=== PATIENT | female | born 1975 | race Caucasian/White ===

== ENCOUNTER 2025-02-19 10:34 | Inpatient (IN) | payer OTHER, SELFPAY ==
[2025-02-19] VITALS (8 sets, daily range): BP systolic 100–113; BP diastolic 51–74; PULSE 88–113; RESP 14–20; TEMP 36.3–36.8; O2SAT 98–100; BMI 30.2
--- NOTE | ~2025-02-19 | CT_ITS ---
CLINICAL INDICATION: Epigastric pain COMPARISON: None. TECHNIQUE: Multiple contiguous axial images of the abdomen and pelvis were performed without the admi nistration of intravenous contrast The dose-length product (DLP) was 484.39 mGy-cm. Automated exposure control and iterative reconstruction technique were employed. FINDINGS/OBSERVATIONS: Visualized lower thorax: The bilateral lung bases are clear. The heart is of normal size, without pericardial effusion. Small hiatal hernia is present. Liver: The liver demonstrates homogeneous attenuation and is not enlarged. Gallbladder and biliary system: The gallbladder is only minimally distended, and otherwise unremarkable. Pancreas: Limited evaluation of the pancreas secondary to the lack of intravenous contrast. Spleen: The spleen demonstrates homogeneous attenuation and is not enlarged. Kidneys: The bilateral kidneys are unremarkable, without hydronephrosis or renal calculi. Adrenal glands: Unremarkable. Gastrointestinal tract: A 15 mm defect is identified within the supraumbilical fascia through which multiple loops of small b owel project. An additional defect is identified cranial to this which contains a small segment of the wall of the transverse colon and adjacent mesentery. Proximal dilatation and distal decompression is noted. Air is present within the distal bowel, without suspicion of strangulation. Appendix: The air-filled appendix is of normal caliber (axial series, images 103 - 113) Vasculature: A swirling 11 mm tubular structure is identified within the mesentery just cranial to th e fascial defect, possibly vascular in origin for which contrast enhanced imaging is needed. This does not appear to represent small bowel, however, the dilatation of this structure within the m esentery, if it represents superior mesenteric vein, the distal bowel wall would appear much thicker than it currently does, consistent with venous congestion. Surgical consultation is recommended, for further evaluation. Vascular coils are identified within the upper abdomen, within the distribution of branches of the le ft gastric artery. The inferior vena cava is decompressed, for which hypovolemia is suspected. Lymph nodes: No pathologically enlarged or morphologically suspicious lymph nodes within the retroperitoneum or at the root of the mesentery. Scattered nonpathologically enlarged lymph nodes are present, a nonspecif ic finding. Pelvic structures: The bladder is decompressed, limiting its evaluation. The uterus is anteverted and anteflexed, and otherwise unremarkable. Body wall and musculoskeletal: No significant degenerative disease within the lower thoracic or lumbosacral spine. IMPRESSION: Supraumbilical small bowel containing hernia with indeterminate affect on the mesentery and possible compression and distention of a branch of the superior mesenteric vein, as detailed above. Additional findings within the anterior wall of the proximal transverse colon which extends into a ad ditional anterior abdominal wall hernia, for which a possible Cuenca's hernia is suspected. Severe hypovolemia is also noted, as detailed above Thank you for the opportunity to assist in the care of your patient. For questions or concerns regarding this interpretation, please reach out to me directly at . Reviewed, dictated and finalized at location A. IMPRESSION: Supraumbilical small bowel containing hernia with indeterminate affect on the m esentery and possible compression and distention of a branch of the superior me senteric vein, as detailed above. Additional findings within the anterior wall of the proximal transverse colon w hich extends into a additional anterior abdominal wall hernia, for which a poss ible Cuenca's hernia is suspected. Severe hypovolemia is also noted, as detailed above Thank you for the opportunity to assist in the care of your patient. For questions or concerns regarding this interpretation, please reach out to me directly at [phone].
--- NOTE | ~2025-02-19 | XR_ITS ---
CHEST RADIOGRAPH, PA AND LATERAL CLINICAL HISTORY: chest pain, PT C/O STOMACH PAIN X 3MONTHS, DIZZINESS . COMPARISON: None available TECHNIQUE: PA and lateral views of the chest. FINDINGS The cardiomediastinal silhouette is unremarkable. The lungs are clear. IMPRESSION: No focal infiltrate or effusion. Reviewed, dictated and finalized at location A.
--- NOTE | 2025-02-19 10:38 | ECG_ITS ---
Test Date: 2025-02-19 13:23:40 Measurements Intervals [place] Rate: 93 P: 51 VA: 141 QRS: 19 QRSD: 98 T: 54 QT: 337 QTc: 421 Interpretive Statements SINUS RHYTHM No previous ECG available for comparison Electronically Signed On 02-19-2025 13:39:02 CDT by Courtney Joseph M.D.
[2025-02-19 10:56] LABS: Hematocrit 41.6 % (37.0-47.0); Hemoglobin 13.3 g/dL (12.0-15.0); Immature Granulocyte Percent A 0.6 % (0-0.5); Lymphocytes Absolute Auto 2.29 K/mm3 (0.9-3.2); Mean Corpuscular HGB Conc 32.0 g/dl (32-36); Mean Corpuscular Hemoglobin 26.2 pg (26-34); Mean Corpuscular Volume 82.1 fl (80-100); Nucleated Red Blood Cells Absolute Auto 0.000 K/mm3 (0.0-0.012); Nucleated Red Blood Cells Perc 0.0 % (0.0-0.2); Platelet Count Result 393 k/mm3 (150-375); Red Blood Count 5.07 M/mm3 (4.2-5.4); White Blood Count 8.9 K/mm3 (4.5-10.0)
[2025-02-19 11:05] LABS: Alanine Aminotransferase 23 U/L (6-35); Albumin Level 4.5 g/dL (3.5-5.1); Alkaline Phosphatase 76 U/L (38-126); Anion Gap 18 mmol/L (4-12); Aspartate Amino Transferase 24 U/L (14-36); Bilirubin,Total 0.4 mg/dL (0.2-1.3); Blood Urea Nitrogen 59 mg/dL (7-17); Calcium 9.0 mg/dL (8.4-10.2); Carbon Dioxide 15 mmol/L (22-30); Chloride 107 mmol/L (98-107); Estimated CRCL calculation 14 ml/min; Estimated Glomerular Filt Rate 10; Glucose 119 mg/dL (65-110); Lipase 823 U/L (23-300); Potassium 4.9 mmol/L (3.4-5.0); Sodium 140 mmol/L (137-145); Total Protein 8.1 g/dL (6.3-8.2)
[2025-02-19 11:07] LABS: INR 1.0; Prothrombin Time 13.2 Seconds (11.1-14.7)
[2025-02-19 11:08] LABS: Partial Thromboplastin Time 25.2 Seconds (22.3-36.8)
[2025-02-19 11:17] LABS: Troponin I < 0.012 ng/mL (0.000-0.034)
[2025-02-19] MEDS: ASPIRIN 81 MG CHEWABLE TABLET 324 MG PO (12:38)
--- NOTE | 2025-02-19 13:12 | ED_ITS ---
HPI - Chest Pain General Chief Complaint: Chest Pain Stated Complaint: chest pain, abd pain, N/V, dizziness Time Seen by Provider: 02/19/25 12:24 History of Present Illness HPI narrative: Pt presents with epigastric abdominal pain and some right sided CP. The CP is intermittent and brief in nature. Pt says the epigastric pain has been present for a month getting worse and she has been vomiting a lot the last few days and is not able to keep anything down. Pt denies diarrhea or fever or SOB. Related Data Home Medications ?Medication ?Instructions ?Recorded ?Confirmed ?Last Taken ?Type bupropion HCl 150 mg 24 hr tablet, 150 mg PO DAILY 02/19/25 02/19/25 Unknown History extended release dulaglutide 0.75 mg/0.5 mL 1.5 mg subcut WEEKLY 02/19/25 02/19/25 02/16/25 History subcutaneous pen injector (Trulicity) dulaglutide 1.5 mg/0.5 mL 1.5 mg subcut WEEKLY 02/19/25 02/19/25 02/16/25 History subcutaneous pen injector (Trulicity) hydroxyzine HCl 25 mg tablet 25 mg PO DAILY 02/19/25 02/19/25 Unknown History lisinopril 20 mg tablet 20 mg PO HS 02/19/25 02/19/25 Unknown History metformin 1,000 mg tablet 1,000 mg PO BID 02/19/25 02/19/25 Unknown History omeprazole magnesium 20 mg 40 mg PO DAILY 02/19/25 02/19/25 02/19/25 History tablet,delayed release (Prilosec OTC) rosuvastatin 5 mg tablet 5 mg PO HS 02/19/25 02/19/25 Unknown History sertraline 50 mg tablet 50 mg PO DAILY 02/19/25 02/19/25 Unknown History terbinafine HCl 250 mg tablet 250 mg PO HS 02/19/25 02/19/25 Unknown History Allergies Allergy/AdvReac Type Severity Reaction Status Date / Time No Known Allergies Allergy Verified 02/19/25 15:45 Review of Systems 2 Review of Systems: All systems reviewed & are unremarkable except as noted in HPI and below PMFSH Family History Family History (Updated 02/19/25 @ 15:34 by Kari Marte RN) Father Hypertension Diabetes mellitus Mother Hypertension Diabetes mellitus Social History Social History Smoking status: Never smoker Alcohol intake: never Substance use: never Do You Feel Safe in your Home?: Yes Lack of Transportation: No Lack of Food: Never True Current Housing: I Have Housing Concerned About Future Housing: Decline to Answer Difficulty Paying Gas/Electric Bills: Decline to Answer Difficulty Paying for Meds: Decline to Answer Currently Unemployed: Decline to Answer Education: Associate Degree Difficulty w/ Childcare or Family Care: Decline to Answer Spiritual care concerns: No Exam 2 Const: General: healthy appearing and no acute distress Nutritional Appearance: well nourished Orientation/consciousness: patient oriented x3 Limitations: no limitations Resp: Effort & Inspection: normal respiratory effort Auscultation: clear to auscultation bilaterally Cardio: Rate: regular rate Rhythm: regular rhythm GI: GI Palp: Yes Soft to palpation and Yes Tenderness to palpation present (GI) (epigastrum) Auscultation: normal bowel sounds Back/Spine/Pelvis: Back: no CVA tenderness Skin: General skin exam: normal color Rashes: no rashes Wounds: no wounds Neuro: General: patient oriented x3, moves all extremities and no focal motor deficits Speech: normal speech Extrem: General: normal to inspection and no clubbing, cyanosis or edema Psych: Mental Status: mental status grossly normal Affect: normal affect Attitude: cooperative Course Vital Signs Vital signs: Vital Signs Temperature 97.9 F 02/19/25 10:44 Pulse Rate 113 H 02/19/25 10:44 Respiratory Rate 16 02/19/25 10:44 Blood Pressure 113/65 02/19/25 10:44 Pulse Oximetry 99 02/19/25 10:44 Oxygen Delivery Room Air 02/19/25 10:44 Temperature 97.3 F L 02/19/25 15:00 Pulse Rate 88 02/19/25 15:00 Respiratory Rate 14 02/19/25 15:00 Blood Pressure 112/59 L 02/19/25 15:00 Pulse Oximetry 100 02/19/25 15:00 Oxygen Delivery Room Air 02/19/25 12:12 MDM - Chest Pain MDM Narrative Medical decision making narrative: Pt presents with epigastric pain for a month and vaomiting for a few days. Pt also has some right sided PC. will check ekg and labs to rule out cardiac and also pancreatitis or cholecystitis. Will give some fluids and zofran and something for pain and will get CT abd/pelvis. Pt in renal failure and lipase is 823. trop and LFT's normal. Pt has pancreatitis and renal failure could be dehydration. Discussed with Kim and agrees to admit. will track renal function after rehydrating. Lab Data 02/19/25 10:47 02/19/25 10:47 Labs: Lab Results 02/19/25 02/19/25 Range/Units 10:47 13:17 WBC 8.9 (4.5-10.0) K/mm3 RBC 5.07 (4.2-5.4) M/mm3 Hgb 13.3 (12.0-15.0) g/dL Hct 41.6 (37.0-47.0) % MCV 82.1 (80-100) fl MCH 26.2 (26-34) pg MCHC 32.0 (32-36) g/dl RDW 13.9 (11.5-14.5) % Plt Count 393 H (150-375) k/mm3 MPV 9.8 (7.4-10.4) fl Immature Gran % (Auto) 0.6 H (0-0.5) % Neut % (Auto) 66.4 (45.5-73.1) % Lymph % (Auto) 25.6 (18.3-44.2) % Sargent % (Auto) 6.3 (2.6-8.5) % Eos % (Auto) 0.7 (0-4.4) % Baso % (Auto) 0.4 (0.2-1.2) % Lymph # (Auto) 2.29 (0.9-3.2) K/mm3 Sargent # (Auto) 0.6 (0.1-0.6) K/mm3 Eos # (Auto) 0.1 (0-0.3) K/mm3 Baso # (Auto) 0.0 (0.0-0.1) K/mm3 Abs Immat Gran (auto) 0.05 H (0.00-0.031) K/mm3 Absolute Neuts (auto) 5.9 (1.3-6.7) K/mm3 Absolute Nucleated RBC 0.000 (0.0-0.012) K/mm3 Nucleated RBC % 0.0 (0.0-0.2) % PT 13.2 (11.1-14.7) Seconds INR 1.0 APTT 25.2 (22.3-36.8) Seconds Sodium 140 (137-145) mmol/L Potassium 4.9 (3.4-5.0) mmol/L Chloride 107 (98-107) mmol/L Carbon Dioxide 15 L (22-30) mmol/L Anion Gap 18 H (4-12) mmol/L BUN 59 H (7-17) mg/dL Creatinine 4.75 H (0.7-1.0) mg/dL Estim Creat Clear Calc 14 ml/min Estimated GFR 10 L (59 - ) Glucose 119 H (65-110) mg/dL Calcium 9.0 (8.4-10.2) mg/dL Total Bilirubin 0.4 (0.2-1.3) mg/dL AST 24 (14-36) U/L ALT 23 (6-35) U/L Alkaline Phosphatase 76 (38-126) U/L Troponin I < 0.012 < 0.012 (0.000-0.034) ng/mL Total Protein 8.1 (6.3-8.2) g/dL Albumin 4.5 (3.5-5.1) g/dL Lipase 823 H (23-300) U/L Discharge Plan Discharge Clinical Impression: Pancreatitis, Acute dehydration, Acute renal failure (ARF) Patient Disposition: Still a Patient Condition: Serious
--- NOTE | 2025-02-19 13:19 | ECG_ITS ---
Test Date: 2025-02-19 10:42:15 Measurements Intervals [place] Rate: 106 P: 45 TN: 139 QRS: 10 QRSD: 93 T: 42 QT: 318 QTc: 423 Interpretive Statements SINUS TACHYCARDIA ABNORMAL RHYTHM ECG No previous ECG available for comparison Electronically Signed On 02-20-2025 07:15:59 CDT by Courtney Joseph M.D.
[2025-02-19] MEDS: LACTATED RINGERS 1,000 ML 125 ML IV CONT (13:38)
[2025-02-19] MEDS: HYDROmorphone HCL INJ (*CRX) 2 MG/ML VIAL 0.5 MG IV PUSH (13:39)
[2025-02-19] MEDS: ONDANSETRON INJ 4 MG/2 ML VIAL IV PUSH (13:39)
[2025-02-19 13:55] LABS: Troponin I < 0.012 ng/mL (0.000-0.034)
[2025-02-19] MEDS: SODIUM CHLORIDE 0.9% IV 1,000 ML 999 ML IV CONT (13:57)
--- NOTE | 2025-02-19 14:46 | P.HP_ITS ---
H&P: HPI History of Present Illness Date/Time: 02/19/25 14:46 Chief Complaint: Epigastric pain Narrative: 49-year-old female presents the hospital with epigastric pain right-sided chest pain. Patient states the epigastric pain has been going on for about a month however only last few days she has been vomiting and not able to eat or drink. Patient denies alcohol use. Patient denies fevers chills. Patient denies risk factors for HIV or AIDS. In the ED her lab work shows carbon dioxide 15, anion gap 18, BUN of 59, creatinine 4.75, estimated GFR 10, glucose of 119, troponins are negative lipase of 823. CT of the abdomen shows Supraumbilical small bowel containing hernia with indeterminate affect on the mesentery and possible compression and distention of a branch of the superior mesenteric vein, as detailed above. Additional findings within the anterior wall of the proximal transverse colon which extends into a additional anterior abdominal wall hernia, for which a possible Cuenca's hernia is suspected. Severe hypovolemia is also noted, as detailed above Review of Systems Review of Systems: 12 systems were reviewed and are negativ e except for as per HPI. [facility] Family History Family History (Updated 02/19/25 @ 15:34 by Kari Marte RN) Father Hypertension Diabetes mellitus Mother Hypertension Diabetes mellitus Social History Social History Smoking status: Never smoker Alcohol intake: never Substance use: never Do You Feel Safe in your Home?: Yes Lack of Transportation: No Lack of Food: Never True Current Housing: I Have Housing Concerned About Future Housing: Decline to Answer Difficulty Paying Gas/Electric Bills: Decline to Answer Difficulty Paying for Meds: Decline to Answer Currently Unemployed: Decline to Answer Education: Associate Degree Difficulty w/ Childcare or Family Care: Decline to Answer Spiritual care concerns: No Meds Home Medications and Allergies Home Medications ?Medication ?Instructions ?Recorded ?Confirmed ?Type bupropion HCl 150 mg 24 hr tablet, 150 mg PO DAILY 02/19/25 02/19/25 History extended release dulaglutide 0.75 mg/0.5 mL 1.5 mg subcut WEEKLY 02/19/25 02/19/25 History subcutaneous pen injector (Trulicity) dulaglutide 1.5 mg/0.5 mL 1.5 mg subcut WEEKLY 02/19/25 02/19/25 History subcutaneous pen injector (Trulicity) hydroxyzine HCl 25 mg tablet 25 mg PO DAILY 02/19/25 02/19/25 History lisinopril 20 mg tablet 20 mg PO HS 02/19/25 02/19/25 History metformin 1,000 mg tablet 1,000 mg PO BID 02/19/25 02/19/25 History omeprazole magnesium 20 mg 40 mg PO DAILY 02/19/25 02/19/25 History tablet,delayed release (Prilosec OTC) rosuvastatin 5 mg tablet 5 mg PO HS 02/19/25 02/19/25 History sertraline 50 mg tablet 50 mg PO DAILY 02/19/25 02/19/25 History terbinafine HCl 250 mg tablet 250 mg PO HS 02/19/25 02/19/25 History Allergies Allergy/AdvReac Type Severity Reaction Status Date / Time No Known Allergies Allergy Verified 02/19/25 15:45 Vital Signs Vital Signs - 24 hr 02/19/25 10:44 02/19/25 12:12 02/19/25 12:12 Temperature 97.9 F Pulse Rate 113 H 97 Respiratory Rate 16 20 Blood Pressure 113/65 113/74 Pulse Oximetry 99 98 99 Oxygen Delivery Room Air Room Air Room Air Exam Narrative: General: well appearing, appears stated age. HEENT: normocephalic, atraumatic. Mucous membranes moist. EOMI, PERRLA, bilateral sclera anicteric, no conjunctival injection. Neck supple without JVD, lymphadenopathy, or bruit. Respiratory: clear to ascultation bilaterally. No rales/rhonic/wheezes. Cardiovascular: Regular rate and rhythm, normal S1-S2 upon ascultation. No murmurs, rubs, or clicks. PMI is nondisplaced, capillary refill less than 3 second. Abdomen: Soft, round, no pulsatile masses, nondistended and nontender. No rebound, no guarding. No CVA tenderness, no hepatosplenomegaly. Bowel sounds present to all four quadrants. No high pitch or tinkling sounds, resonant to percussion. Extremities: No cyanosis, clubbing, or edema present. Pulses are palpable 2/2. Active ROM to all four extremities. Neuro: Alert and orientated x 4. PERRLA. Cranial nerves 2-12 intact without focal deficit. Skin: Warm, dry, and intact, without rash, erythema, or lesion. Psych: pleasant, cooperative, normal speech, normal affect, no hallucinations, no dysarthia H&P: Results Labs Labs: Short CBC 02/19/25 Range/Units 10:47 WBC 8.9 (4.5-10.0) K/mm3 Hgb 13.3 (12.0-15.0) g/dL Hct 41.6 (37.0-47.0) % Plt Count 393 H (150-375) k/mm3 BMP 02/19/25 10:47 Sodium 140 Potassium 4.9 Chloride 107 Carbon Dioxide 15 L BUN 59 H Creatinine 4.75 H Glucose 119 H Calcium 9.0 Cardiac Enzymes 02/19/25 02/19/25 Range/Units 10:47 13:17 Troponin I < 0.012 < 0.012 (0.000-0.034) ng/mL Liver Function 02/19/25 Range/Units 10:47 Total Bilirubin 0.4 (0.2-1.3) mg/dL AST 24 (14-36) U/L ALT 23 (6-35) U/L Alkaline Phosphatase 76 (38-126) U/L Albumin 4.5 (3.5-5.1) g/dL Assessment and Plan Assessment and plan (1) Pancreatitis: Code(s): K85.90 - Acute pancreatitis without necrosis or infection, unspecified Status: Acute Assessment and Plan: NPO Pain management LR bolus followed by 200 per hour Lipase in a.m. (2) Acute renal failure (ARF): Code(s): N17.9 - Acute kidney failure, unspecified Status: Acute Assessment and Plan: Nephrology consulted pending recommendations Aggressive fluid hydration (3) Acute dehydration: Code(s): E86.0 - Dehydration Status: Acute Assessment and Plan: Aggressive fluid hydration Quality VTE Prophylaxis VTE prophylaxis: mechanical ordered Hospitalist MIPS Advance Care Plan I have confirmed that the patient's Advanced Care Plan is present, code status is documented, or surrogate decision maker is listed in patient medical record.: Yes Medication Reconciliation I have utilized all available resources to obtain, update and review the patients current medications (includes all prescriptions, OTC, herbals, cannabis, and nutritional supplements).: Yes
--- NOTE | 2025-02-19 15:00 | PC.NURSE ---
This patient, Larissa Gómez, was admitted to [facility] Surg Room 330-01. Patient/family oriented to hospital policies and general routines including ID bracelet, bed and alarms, visiting hours, pain management, procedures, bathroom and other care routines, personal items, smoking policy, room service/diet, and visiting hours. Information on how to activate the Rapid Response Team has been discussed. Patient/Family are encouraged to report perceived risks to care and to ask questions if they do not understand what they are told or what they should do.
[2025-02-19] MEDS: LACTATED RINGERS 1,000 ML 999 ML IV CONT (16:17)
[2025-02-19 17:15] LABS: Troponin I < 0.012 ng/mL (0.000-0.034)
[2025-02-19] MEDS: LACTATED RINGERS 1,000 ML 200 ML IV CONT ×2 (17:57→22:47)
[2025-02-20] MEDS: ACETAMINOPHEN 325 MG TABLET 650 MG PO ×2 (03:11→10:46)
[2025-02-20] MEDS: LACTATED RINGERS 1,000 ML 200 ML IV CONT ×2 (04:14→08:26)
[2025-02-20 06:00] VITALS: BP 123/60; PULSE 84; RESP 20; TEMP 36.8; O2SAT 100
[2025-02-20] MEDS: DEXTROSE 50% 25 GM/50 ML SYRINGE IV PUSH (06:10)
[2025-02-20 06:20] LABS: Hematocrit 33.8 % (37.0-47.0); Hemoglobin 10.8 g/dL (12.0-15.0); Immature Granulocyte Percent A 0.5 % (0-0.5); Lymphocytes Absolute Auto 2.12 K/mm3 (0.9-3.2); Mean Corpuscular HGB Conc 32.0 g/dl (32-36); Mean Corpuscular Hemoglobin 26.9 pg (26-34); Mean Corpuscular Volume 84.1 fl (80-100); Nucleated Red Blood Cells Absolute Auto 0.000 K/mm3 (0.0-0.012); Nucleated Red Blood Cells Perc 0.0 % (0.0-0.2); Platelet Count Result 253 k/mm3 (150-375); Red Blood Count 4.02 M/mm3 (4.2-5.4); White Blood Count 6.4 K/mm3 (4.5-10.0)
[2025-02-20 06:43] LABS: Anion Gap 9 mmol/L (4-12); Blood Urea Nitrogen 48 mg/dL (7-17); Calcium 8.2 mg/dL (8.4-10.2); Carbon Dioxide 18 mmol/L (22-30); Chloride 110 mmol/L (98-107); Estimated CRCL calculation 21 ml/min; Estimated Glomerular Filt Rate 16; Glucose 72 mg/dL (65-110); Lipase 646 U/L (23-300); Potassium 5.0 mmol/L (3.4-5.0); Sodium 137 mmol/L (137-145)
[2025-02-20 08:00] VITALS: O2SAT 100
[2025-02-20] MEDS: SERTRALINE HCL 50 MG TABLET PO (08:14)
[2025-02-20] MEDS: PANTOPRAZOLE 40 MG TABLET PO (08:14)
[2025-02-20] MEDS: buPROPion HCL XL (24 HR) 150 MG TABCR PO (08:26)
--- NOTE | 2025-02-20 10:45 | P.CONNP_ITS ---
Assessment and Plan Assessment and plan (1) Acute kidney injury: Code(s): N17.9 - Acute kidney failure, unspecified Status: Acute Assessment and Plan: * presumably normal renal function prior to admission * improvement noted with IVF hydration * several issues playing a role: * prerenal factors * ongoing use of LUCIA-I and metformin prior to admission * pancreatitis * other(?) * CT of A/P with bilateral kidneys are unremarkable, without hydronephrosis or renal calculi. * check urine studies * continue to follow trend of labs and UOP (2) Pancreatitis: Code(s): K85.90 - Acute pancreatitis without necrosis or infection, unspecified Status: Acute Assessment and Plan: * suggested by elevated lipase on admission * however, no CT evidence (although lack of IV contrast limits evaluation) * follow clinical exam and trend of lipase * advance diet as tolerated (3) Urinary tract infection: Code(s): N39.0 - Urinary tract infection, site not specified Status: Acute Assessment and Plan: * admission UA suggestive * however, no urine collection done * on empiric antibiotics (4) Incisional hernia: Code(s): K43.2 - Incisional hernia without obstruction or gangrene Status: Acute Assessment and Plan: * Surgery consult pending * continue supportive therapy (5) Hypertension: Code(s): I10 - Essential (primary) hypertension Status: Chronic Assessment and Plan: * reasonable control at this time * LUCIA-I on hold due to #1 * follow trend of hemodynamics (6) Diabetes mellitus: Code(s): E11.9 - Type 2 diabetes mellitus without complications Status: Chronic Assessment and Plan: * follow accu-cheks * glycemic control per hospitalist I will continue to follow the patient with you while she remains hospitalized and make further recommendations as deemed necessary. Thank you for allowing me to participate in the care of this patient. L History of Present Illness Reason for Consult Consult date: 02/20/25 Reason for consult: acute renal failure Chief Complaint Chief complaint: Pancreatitis History of Present Illness Narrative: The patient is a 49-year-old female with a past medical history as outlined below who presents the [facility] ER with complaints of abdominal pain. Patient states the abdminalpain has been going on for about a month, however, in the last few days she has been having vomiting and has not able to eat or drink. The pain seems to come and go in general and is localized to the epigastric area with some radiation to her right chest. She denies any symptoms of fevers, chills, nausea, diarrhea, shortness of breath, dizziness, lightheadedness, or palpitations. Due to the worsening pain and associated GI symptoms, she presented to the ER for further assessment. Evaluation in the ER demonstrated the patient to be hemodynamically stable and afebrile. Routine lab work showed a carbon dioxide 15, BUN of 59, creatinine 4.75, glucose of 119, negative troponins and a elevated lipase of 823. Subsequent CT of the abdomen demonstrated a supraumbilical small bowel containing hernia with indeterminate affect on the mesentery and possible compression and distention of a branch of the superior mesenteric vein with additional findings within the anterior wall of the proximal transverse colon which extends into a additional anterior abdominal wall hernia, for which a possible Cuenca's hernia is suspected. Her UA was somewhat suggestive of a UTI as well (but a urine culture was not done). She was initiated on IVFs with subsequent Surgery consultation and admitted to the hospital for further evaluation and therapy. Since her admission, her renal function has improved with supportive therapy and Surgery consultation is pending. Renal consultation was requested due to her acute kidney injury/acute renal failure. Unfortunately, I have no prior labs to compare to but according to the patient, she has never been told that she had any issues or problems with regard to her kidneys or any evidence of chronic renal insufficiency. Although she does have risk have risk factors for kidney disease in the form of hypertension and diabetes, these medical conditions appear to be under control control with her medication regimen. As already mentioned above, since her admission, and with just IV fluid hydration, her renal function has already improved significantly. Currently, at the time my evaluation, she appears to be in no acute distress. Review of Systems 2 Review of Systems: As per HPI. [facility] Family History Family History Father Hypertension Diabetes mellitus Mother Hypertension Diabetes mellitus Social History Social History (Updated 03/11/25 @ 08:42 by Gabi Squires MA) Smoking status: Never smoker Alcohol intake: never Substance use: never Do You Feel Safe in your Home?: Yes Lack of Transportation: No Lack of Food: Never True Current Housing: I Have Housing Concerned About Future Housing: No Difficulty Paying Gas/Electric Bills: No Difficulty Paying for Meds: No Currently Unemployed: No Education: High School Diploma/GED Difficulty w/ Childcare or Family Care: No Spiritual care concerns: No Meds Home Medications and Allergies Home Medications ?Medication ?Instructions ?Recorded ?Confirmed ?Type bupropion HCl 150 mg 24 hr tablet, 150 mg PO DAILY 02/19/25 03/11/25 History extended release hydroxyzine HCl 25 mg tablet 25 mg PO DAILY 02/19/25 03/11/25 History metformin 1,000 mg tablet 1,000 mg PO BID 02/19/25 03/11/25 History omeprazole magnesium 20 mg 40 mg PO DAILY 02/19/25 03/11/25 History tablet,delayed release (Prilosec OTC) rosuvastatin 5 mg tablet 5 mg PO HS 02/19/25 03/11/25 History sertraline 50 mg tablet 50 mg PO DAILY 02/19/25 03/11/25 History terbinafine HCl 250 mg tablet 250 mg PO HS 02/19/25 03/11/25 History atenolol 25 mg tablet 25 mg PO DAILY 03/11/25 03/11/25 History Allergies Allergy/AdvReac Type Severity Reaction Status Date / Time No Known Allergies Allergy Verified 03/11/25 08:41 Vital Signs Vital Signs Temp Pulse Resp BP Pulse Ox O2 Del Method 02/20/25 08:00 100 Room Air 02/20/25 06:00 98.3 F 84 20 123/60 100 02/19/25 21:52 98.2 F 88 16 111/51 L 98 02/19/25 20:00 88 16 98 Room Air Exam 2 Narrative: GENERAL APPEARANCE: well developed well nourished female in no acute distress HEENT: normocephalic, atraumatic, normal conjunctiva and sclera, nares patient NECK: no lymphadenopathy, thyromegaly, or JVD MOUTH: normal lips, teeth, and gums CARDIOVASCULAR: RRR, normal S1 and S2, no rub RESPIRATORY: clear to auscultation bilaterally ABDOMEN: soft, nontender, nondistended, positive bowel sounds present EXTREMITIES: no evidence of cyanosis, clubbing, or edema NEUROLOGICAL: alert and oriented x 3; CN II - XII intact bilaterally; no focal deficits noted Results Lab Results 02/23/25 07:23 02/23/25 07:23 Lab results: Most recent lab results Calcium 8.2 mg/dL (8.4-10.2) L 02/20/25 05:53 Urine Creatinine 62.3 mg/dL 02/20/25 14:06
--- NOTE | 2025-02-20 11:47 | PM.IMPN ---
Progress Note: A&P Assessment and Plan (1) Pancreatitis: Code(s): K85.90 - Acute pancreatitis without necrosis or infection, unspecified Status: Acute (2) Acute renal failure (ARF): Code(s): N17.9 - Acute kidney failure, unspecified Status: Acute (3) Acute dehydration: Code(s): E86.0 - Dehydration Status: Acute Plan 49-year-old female presents the hospital with epigastric pain right-sided chest pain. Patient states the epigastric pain has been going on for about a month however only last few days she has been vomiting and not able to eat or drink. Patient denies alcohol use. Patient denies fevers chills. Patient denies risk factors for HIV or AIDS. In the ED her lab work shows carbon dioxide 15, anion gap 18, BUN of 59, creatinine 4.75, estimated GFR 10, glucose of 119, troponins are negative lipase of 823. CT of the abdomen shows Supraumbilical small bowel containing hernia with indeterminate affect on the mesentery and possible compression and distention of a branch of the superior mesenteric vein, as detailed above. Additional findings within the anterior wall of the proximal transverse colon which extends into a additional anterior abdominal wall hernia, for which a possible Cuenca's hernia is suspected.. 15 mm defect is identified within the supra umbilical fossa through with multiple loops of small bowel project. Additional defects identified cranial to this which contains a small segment of the wall of transverse colon and adjacent mesentery. Proximal dilatation and distal decompression is noted. Air is present within the distal bowel without suspicion of strangulation. Will consult General surgery with regard to these findings possible obstructed hernia. Check lactate History of GI bleed needing vascular coiling in the past per CT scan noted within the distribution of of branches of left gastric artery. Dehydration IV fluid DRAGAN unknown baseline creatinine admission creatinine of 4.7. No prior labs are available to review. Nephrology has been consulted. No hydronephrosis on CT Trend lipase. CT evaluation of pancreas was limited secondary to lack of IV contrast. Type 2 diabetes on Trulicity and metformin at home which are on hold. Continue to monitor Accu-Cheks. SSI for trending up. Currently low. Will start dextrose IV since NPO. Hypertension lisinopril on hold Anxiety depression on bupropion and sertraline Hyperlipidemia on rosuvastatin. Check CK level. DVT prophylaxis heparin subQ Code status full code Subjective Date/time seen: 02/20/25 11:47 Interval history: Abdominal pain is slightly better. No nausea vomiting. Review of Systems Review of Systems: All systems reviewed & are unremarkable except as noted in HPI and below Exam Narrative: General: well appearing, appears stated age. Not in acute distress HEENT: normocephalic, atraumatic. Mucous membranes moist. EOMI, PERRLA Respiratory: clear to auscultation bilaterally. No rales/rhonic/wheezes. Cardiovascular: Regular rate and rhythm, normal S1-S2 upon ascultation. No murmurs, rubs, or clicks. Abdomen: Soft, round, right epigastric mass which is not tender, surgical scar noted supraumbilical No rebound, no guarding. Extremities: No cyanosis, clubbing, or edema present. Pulses are palpable 2/2. Active ROM to all four extremities. Neuro: Alert and orientated x 4. PERRLA. Cranial nerves 2-12 intact without focal deficit. Skin: Warm, dry, and intact, without rash, erythema, or lesion. Psych: pleasant, cooperative, normal speech, normal affect Objective Data Vital Signs Vital Signs: Vital Signs - 24 hr 02/19/25 12:12 02/19/25 12:12 02/19/25 12:30 Temperature Pulse Rate 97 97 Respiratory Rate 20 16 Blood Pressure 113/74 106/72 Pulse Oximetry 98 99 98 Oxygen Delivery Room Air Room Air 02/19/25 13:30 02/19/25 14:40 02/19/25 15:00 Temperature 97.3 F L Pulse Rate 97 96 88 Respiratory Rate 16 16 14 Blood Pressure 100/65 102/65 112/59 L Pulse Oximetry 98 99 100 Oxygen Delivery 02/19/25 20:00 02/19/25 21:52 02/20/25 06:00 Temperature 98.2 F 98.3 F Pulse Rate 88 88 84 Respiratory Rate 16 16 20 Blood Pressure 111/51 L 123/60 Pulse Oximetry 98 98 100 Oxygen Delivery Room Air 02/20/25 08:00 Temperature Pulse Rate Respiratory Rate Blood Pressure Pulse Oximetry 100 Oxygen Delivery Room Air Intake/Output Intake/Output: Intake & Output 02/17/25 02/18/25 02/19/25 02/20/25 23:59 23:59 23:59 23:59 Intake Total 1672.5 1840 Balance 1672.5 1840 Meds/Results Medications: Active Medications Generic Name Dose Route Start Last Admin Trade Name Freq PRN Reason Stop Dose Admin Acetaminophen 650 mg 02/20/25 02:29 02/20/25 10:46 Acetaminophen 325 Mg Tablet PO 650 mg Q6H PRN Administration Mild Pain (1-3) or Fever Bupropion HCl 150 mg 02/20/25 09:00 02/20/25 08:26 Bupropion Hcl Xl (24 Hr) 150 Mg Tabcr PO 150 mg DAILY MOOSE Administration Dextrose 12.5 gm 02/19/25 22:23 02/20/25 06:10 Dextrose 50% 25 Gm/50 Ml Syringe IV PUSH 12.5 gm PRN PRN Administration Hypoglycemia Protocol Glucagon 1 mg 02/19/25 22:23 Glucagon For Inj 1 Mg Vial IM PRN PRN Hypoglycemia Protocol Glucose 15 gm 02/19/25 22:23 Glucose Oral Gel 15 Gm Of Glucse In 37.5 Gm Tube PO PRN PRN Hypoglycemia Protocol Hydromorphone HCl 0.5 mg 02/19/25 13:22 Hydromorphone Hcl Inj (*Crx) 2 Mg/Ml Vial IV PUSH Q4H PRN Pain Rated 7-10 Hydroxyzine HCl 25 mg 02/20/25 09:00 02/20/25 08:14 Hydroxyzine Hcl 25 Mg Tablet PO 25 mg DAILY MOOSE Administration Lactated Ringer's 1,000 mls @ 200 mls/hr 02/19/25 13:25 02/20/25 08:26 Lr - Lactated Ringers Iv IV CONT 200 mls/hr .Q5H MOOSE Administration Dextrose 1,000 mls @ 100 mls/hr 02/19/25 22:23 Dextrose 5% 1,000 Ml IVPB PRN PRN Hypoglycemia Protocol Insulin Aspart 2 - 5 units 02/20/25 00:00 02/20/25 06:17 Insulin Aspart (*Bkc) 100 Units/Ml SUB-Q Not Given Q6HR MOOSE Protocol Ondansetron HCl 4 mg 02/19/25 13:22 Ondansetron Inj 4 Mg/2 Ml Vial IV PUSH Q4H PRN Nausea Pantoprazole Sodium 40 mg 02/20/25 09:00 02/20/25 08:14 Pantoprazole 40 Mg Tablet PO 40 mg QAM MOOSE Administration Rosuvastatin Calcium 5 mg 02/20/25 21:00 Rosuvastatin 5 Mg Tablet PO HS MOOSE Sertraline HCl 50 mg 02/20/25 09:00 02/20/25 08:14 Sertraline Hcl 50 Mg Tablet PO 50 mg DAILY MOOSE Administration Terbinafine HCl 250 mg 02/20/25 21:00 Terbinafine Hcl 250 Mg Tablet PO HS [facility] Radiology Results: ITS Impressions Chest X-Ray 02/19/25 12:12 IMPRESSION: No focal infiltrate or effusion. Abdomen/Pelvis CT 02/19/25 14:09 IMPRESSION: Supraumbilical small bowel containing hernia with indeterminate affect on the mesentery and possible compression and distention of a branch of the superior mesenteric vein, as detailed above. Additional findings within the anterior wall of the proximal transverse colon which extends into a additional anterior abdominal wall hernia, for which a possible Cuenca's hernia is suspected. Severe hypovolemia is also noted, as detailed above Thank you for the opportunity to assist in the care of your patient. For questions or concerns regarding this interpretation, please reach out to me directly at [phone]. Labs Labs: Laboratory Results - last 24 hr 02/19/25 02/19/25 02/20/25 13:17 16:42 00:19 WBC RBC Hgb Hct MCV MCH MCHC RDW Plt Count MPV Immature Gran % (Auto) Neut % (Auto) Lymph % (Auto) [place] % (Auto) Eos % (Auto) Baso % (Auto) Lymph # (Auto) [place] # (Auto) Eos # (Auto) Baso # (Auto) Abs Immat Gran (auto) Absolute Neuts (auto) Absolute Nucleated RBC Nucleated RBC % Sodium Potassium Chloride Carbon Dioxide Anion Gap BUN Creatinine Estim Creat Clear Calc Estimated GFR Glucose POC Capillary Glucose 69 Calcium Troponin I < 0.012 < 0.012 Lipase 02/20/25 02/20/25 02/20/25 05:53 06:05 06:55 WBC 6.4 RBC 4.02 L Hgb 10.8 L Hct 33.8 L MCV 84.1 MCH 26.9 MCHC 32.0 RDW 13.5 Plt Count 253 MPV 9.7 Immature Gran % (Auto) 0.5 Neut % (Auto) 58.2 Lymph % (Auto) 33.0 [place] % (Auto) 6.9 Eos % (Auto) 0.8 Baso % (Auto) 0.6 Lymph # (Auto) 2.12 [place] # (Auto) 0.4 Eos # (Auto) 0.1 Baso # (Auto) 0.0 Abs Immat Gran (auto) 0.03 Absolute Neuts (auto) 3.7 Absolute Nucleated RBC 0.000 Nucleated RBC % 0.0 Sodium 137 Potassium 5.0 Chloride 110 H Carbon Dioxide 18 L Anion Gap 9 BUN 48 H D Creatinine 3.08 H Estim Creat Clear Calc 21 Estimated GFR 16 L Glucose 72 POC Capillary Glucose 60 L 97 Calcium 8.2 L Troponin I Lipase 646 H
--- NOTE | 2025-02-20 11:47 | PC.NURSE ---
Dr Garcai notified of glucose 71 and LR at 200 ml/hr infusing.
[2025-02-20] MEDS: DEXTROSE 5%/0.9% SOD CHL 1,000 ML 100 ML IV CONT (12:20)
[2025-02-20 13:08] LABS: Add Urine Microscopic? YES; Appearance Urine Clear (Clear); Glucose Urine UA Negative (Negative); Leukocyte Esterase Ur 2+ LEU/UL (Negative); Nitrate Urine Negative (Negative); Specific Grav Ur 1.010 (1.001-1.035)
--- NOTE | 2025-02-20 13:14 | P.CONGS_ITS ---
Assessment and Plan Assessment and plan (1) Abnormal CT of the abdomen: Code(s): R93.5 - Abnormal findings on diagnostic imaging of other abdominal regions, including retroperitoneum Status: Acute Assessment and Plan: Patient presented with 1 month of epigastric pain that has increased in severity and is worsened with eating. She has since developed nausea and vomiting after meals. She has had multiple open abdominal surgeries 10+ years ago. Upon admission to the ED, abdominal CT demonstrated supraumbilical small bowel containing hernia with indeterminate effect on the mesentery and possible compression and distension of a branch of the superior mesenteric vein. Additionally, the anterior wall of the proximal transverse colon extends into an additional anterior abdominal wall hernia. Possible Cuenca's hernia suspected. * Continue IV pain and nausea medication. * No immediate surgical intervention necessary at this time. Would like to see pancreatitis resolved before proceeding with surgery. * We will continue to follow with serial abdominal exams. (2) Acute renal failure (ARF): Code(s): N17.9 - Acute kidney failure, unspecified Status: Acute Assessment and Plan: Severe hypovolemia noted. BUN/Cr increased. Nephrology on board. (3) Pancreatitis: Code(s): K85.90 - Acute pancreatitis without necrosis or infection, unspecified Status: Acute Assessment and Plan: Continue with IV pain medication and IV fluids per hospitalist recs. Monitor lipase levels. Plan Discussed patient's case and plan of care with Dr. Mckenzie. History of Present Illness Consult details Consult date: 02/20/25 Reason for consult: other (Abnormal CT findings) Requesting physician: Reji Bahena MD Narrative: Patient is a 49-year-old female we have been asked to see in surgical consultation for evaluation of abnormal CT findings. Patient 1st noted epigastric pain about 1 month ago. She states that this was also associated with some right-sided intermittent chest pain. Patient states that epigastric pain is exacerbated with eating and within the past 2 weeks she has developed nausea and vomiting after meals. Last episode of emesis was yesterday morning. Over the last few days pain has continued to increase in severity and patient eventually presented to the ED yesterday afternoon. Patient admits to an epigastric bulge that she sometimes notes to increase in size. She has not eaten since the night of 02/18. Denies hematemesis or hematochezia. Patient recalls having various surgeries on her abdomen. She notes that 10+ years ago she had a surgery at [place] for bleeding gastric ulcers. She notes at this time that she also had a bleeding artery and was sent to [place] for treatment. Patient is unable to recall the exact surgeries that she had performed, but she has a large midline scar as well as several other 1-2 inch incisional scars laterally on her abdomen. Patient also notes having a piece of skin removed from her abdomen when she was a baby, but is unsure what the exact surgery was. Upon admission to the ED, patient's lipase is 646. She denies ever being diagnosed with pancreatitis in the past. Elevated BUN/Cr, nephrology consulted. CT demonstrated 15 mm defect within the supraumbilical fascial there which multiple loops of small bowel project. Additional defect cranial to this which contains a small segment of the wall of the transverse colon and adjacent mesentery, possible Cuenca's hernia. Proximal dilation and distal decompression noted. Air present within the distal bowel without suspicion of strangulation. A swirling 11 mm tubular structure identified within the mesentery just cranial to the fascial defect, possibly vascular in origin for which contrast enhanced imaging would be needed. [facility] Family History Family History (Updated 02/19/25 @ 15:34 by Kari Marte RN) Father Hypertension Diabetes mellitus Mother Hypertension Diabetes mellitus Social History Social History Smoking status: Never smoker Alcohol intake: never Substance use: never Do You Feel Safe in your Home?: Yes Lack of Transportation: No Lack of Food: Never True Current Housing: I Have Housing Concerned About Future Housing: Decline to Answer Difficulty Paying Gas/Electric Bills: Decline to Answer Difficulty Paying for Meds: Decline to Answer Currently Unemployed: Decline to Answer Education: Associate Degree Difficulty w/ Childcare or Family Care: Decline to Answer Spiritual care concerns: No Meds Home Medications and Allergies Home Medications ?Medication ?Instructions ?Recorded ?Confirmed ?Type bupropion HCl 150 mg 24 hr tablet, 150 mg PO DAILY 02/19/25 02/19/25 History extended release dulaglutide 0.75 mg/0.5 mL 1.5 mg subcut WEEKLY 02/19/25 02/19/25 History subcutaneous pen injector (Trulicity) dulaglutide 1.5 mg/0.5 mL 1.5 mg subcut WEEKLY 02/19/25 02/19/25 History subcutaneous pen injector (Trulicity) hydroxyzine HCl 25 mg tablet 25 mg PO DAILY 02/19/25 02/19/25 History lisinopril 20 mg tablet 20 mg PO HS 02/19/25 02/19/25 History metformin 1,000 mg tablet 1,000 mg PO BID 02/19/25 02/19/25 History omeprazole magnesium 20 mg 40 mg PO DAILY 02/19/25 02/19/25 History tablet,delayed release (Prilosec OTC) rosuvastatin 5 mg tablet 5 mg PO HS 02/19/25 02/19/25 History sertraline 50 mg tablet 50 mg PO DAILY 02/19/25 02/19/25 History terbinafine HCl 250 mg tablet 250 mg PO HS 02/19/25 02/19/25 History Allergies Allergy/AdvReac Type Severity Reaction Status Date / Time No Known Allergies Allergy Verified 02/19/25 15:45 Vital Signs Vital Signs - 24 hr 02/19/25 13:30 02/19/25 14:40 02/19/25 15:00 Temperature 97.3 F L Pulse Rate 97 96 88 Respiratory Rate 16 16 14 Blood Pressure 100/65 102/65 112/59 L Pulse Oximetry 98 99 100 Oxygen Delivery 02/19/25 20:00 02/19/25 21:52 02/20/25 06:00 Temperature 98.2 F 98.3 F Pulse Rate 88 88 84 Respiratory Rate 16 16 20 Blood Pressure 111/51 L 123/60 Pulse Oximetry 98 98 100 Oxygen Delivery Room Air 02/20/25 08:00 Temperature Pulse Rate Respiratory Rate Blood Pressure Pulse Oximetry 100 Oxygen Delivery Room Air Exam 2 Const: General: comfortable and no acute distress Eyes: General: appearance normal, both eyes and all related structures Neck: Neck: supple Resp: Effort & Inspection: normal respiratory effort Cardio: Rate: regular rate GI: GI Palp: Yes Soft to palpation, Yes Tenderness to palpation present (GI) (mild epigastric tenderness) and No Guarding due to palpation present (GI) A uscultation: abnormal bowel sounds (hypoactive) Other: Epigastric bulge noted directly to the right of midline. Large midline incisional scar, with several 1-2 inch incision scars laterally. Skin: General skin exam: normal color and no rashes or lesions noted Neuro: Speech: normal speech Sensory Exam: normal sensation Extrem: General: normal to inspection Psych: Mental Status: mental status grossly normal Results Labs 02/20/25 05:53 02/20/25 05:53 Labs: Abnormal lab results 02/20/25 02/20/25 Range/Units 05:53 06:05 RBC 4.02 L (4.2-5.4) M/mm3 Hgb 10.8 L (12.0-15.0) g/dL Hct 33.8 L (37.0-47.0) % Chloride 110 H (98-107) mmol/L Carbon Dioxide 18 L (22-30) mmol/L BUN 48 H D (7-17) mg/dL Creatinine 3.08 H (0.7-1.0) mg/dL Estimated GFR 16 L (59 - ) POC Capillary Glucose 60 L (65-105) mg/dl Calcium 8.2 L (8.4-10.2) mg/dL Lipase 646 H (23-300) U/L Diabetes panel 02/20/25 Range/Units 05:53 Sodium 137 (137-145) mmol/L Potassium 5.0 (3.4-5.0) mmol/L Chloride 110 H (98-107) mmol/L Carbon Dioxide 18 L (22-30) mmol/L BUN 48 H D (7-17) mg/dL Creatinine 3.08 H (0.7-1.0) mg/dL Glucose 72 (65-110) mg/dL Calcium 8.2 L (8.4-10.2) mg/dL Calcium panel 02/20/25 Range/Units 05:53 Calcium 8.2 L (8.4-10.2) mg/dL Pituitary panel 02/20/25 Range/Units 05:53 Sodium 137 (137-145) mmol/L Potassium 5.0 (3.4-5.0) mmol/L Chloride 110 H (98-107) mmol/L Carbon Dioxide 18 L (22-30) mmol/L BUN 48 H D (7-17) mg/dL Creatinine 3.08 H (0.7-1.0) mg/dL Glucose 72 (65-110) mg/dL Calcium 8.2 L (8.4-10.2) mg/dL Adrenal panel 02/20/25 Range/Units 05:53 Sodium 137 (137-145) mmol/L Potassium 5.0 (3.4-5.0) mmol/L Chloride 110 H (98-107) mmol/L Carbon Dioxide 18 L (22-30) mmol/L BUN 48 H D (7-17) mg/dL Creatinine 3.08 H (0.7-1.0) mg/dL Glucose 72 (65-110) mg/dL Calcium 8.2 L (8.4-10.2) mg/dL All other labs normal.
[2025-02-20 14:00] VITALS: BP 120/62; PULSE 80; RESP 19; TEMP 36.6; O2SAT 100
[2025-02-20 14:44] LABS: Total Protein Urine Random 26 mg/dL; Ur Ttl Prot Creatinine Ratio 0.42 mg/mg (0-0.20)
[2025-02-20 14:47] LABS: Total Protein Urine Random 26 mg/dL; Urea Random Urine 470 MG/DL
[2025-02-20] MEDS: cefTRIAXone 1 GM in SODIUM CHLORIDE 0.9% IV 50 ML 100 ML IVPB (16:39)
[2025-02-20 16:57] LABS: Urine Eos QC 2nd Tech Confirmed
[2025-02-20] MEDS: HYDROmorphone HCL INJ (*CRX) 2 MG/ML VIAL 0.5 MG IV PUSH (18:32)
[2025-02-20 18:36] LABS: Albumin Level 3.6 g/dL (3.5-5.1); Anion Gap 14 mmol/L (4-12); Blood Urea Nitrogen 38 mg/dL (7-17); Calcium 8.4 mg/dL (8.4-10.2); Carbon Dioxide 17 mmol/L (22-30); Chloride 107 mmol/L (98-107); Estimated CRCL calculation 26 ml/min; Estimated Glomerular Filt Rate 21; Glucose 87 mg/dL (65-110); Potassium 4.6 mmol/L (3.4-5.0); Sodium 138 mmol/L (137-145)
[2025-02-20] MEDS: ONDANSETRON INJ 4 MG/2 ML VIAL IV PUSH (19:46)
[2025-02-20 20:00] VITALS: PULSE 75; RESP 18; O2SAT 99
[2025-02-20 20:58] VITALS: BP 120/58; PULSE 75; RESP 18; TEMP 36.2; O2SAT 99
[2025-02-21 06:00] VITALS: BP 113/53; PULSE 74; RESP 20; TEMP 36.8; O2SAT 100
[2025-02-21] MEDS: DEXTROSE 5%/0.9% SOD CHL 1,000 ML 100 ML IV CONT ×3 (06:28→20:36)
[2025-02-21 06:40] LABS: Hematocrit 32.9 % (37.0-47.0); Hemoglobin 10.4 g/dL (12.0-15.0); Immature Granulocyte Percent A 0.5 % (0-0.5); Lymphocytes Absolute Auto 1.62 K/mm3 (0.9-3.2); Mean Corpuscular HGB Conc 31.6 g/dl (32-36); Mean Corpuscular Hemoglobin 26.5 pg (26-34); Mean Corpuscular Volume 83.9 fl (80-100); Nucleated Red Blood Cells Absolute Auto 0.000 K/mm3 (0.0-0.012); Nucleated Red Blood Cells Perc 0.0 % (0.0-0.2); Platelet Count Result 261 k/mm3 (150-375); Red Blood Count 3.92 M/mm3 (4.2-5.4); White Blood Count 5.6 K/mm3 (4.5-10.0)
[2025-02-21 06:59] LABS: Alanine Aminotransferase 27 U/L (6-35); Albumin Level 3.5 g/dL (3.5-5.1); Alkaline Phosphatase 64 U/L (38-126); Anion Gap 12 mmol/L (4-12); Aspartate Amino Transferase 31 U/L (14-36); Bilirubin,Total 0.3 mg/dL (0.2-1.3); Blood Urea Nitrogen 29 mg/dL (7-17); Calcium 8.2 mg/dL (8.4-10.2); Carbon Dioxide 20 mmol/L (22-30); Chloride 108 mmol/L (98-107); Estimated CRCL calculation 34 ml/min; Estimated Glomerular Filt Rate 28; Glucose 133 mg/dL (65-110); Lipase 452 U/L (23-300); Magnesium 1.0 mg/dL (1.6-2.3); Potassium 4.6 mmol/L (3.4-5.0); Sodium 140 mmol/L (137-145); Total Protein 6.4 g/dL (6.3-8.2)
--- NOTE | 2025-02-21 07:35 | PM.PNGS ---
Progress Note: A&P Assessment and Plan (1) Pancreatitis: Code(s): K85.90 - Acute pancreatitis without necrosis or infection, unspecified Status: Acute Assessment and Plan: improving, cont supportive care, start clears (2) Incisional hernia: Code(s): K43.2 - Incisional hernia without obstruction or gangrene Status: Acute Assessment and Plan: chronic, no acute surgical issues, will likely address as outpt Subjective Subjective Date/Time Seen: 02/21/25 07:35 Interval history: feels better, decreased abd pain Review of Systems Review of Systems: All systems reviewed & are unremarkable except as noted in HPI and below Exam Const: General: cooperative, comfortable and no acute distress Resp: Auscultation: clear to auscultation bilaterally Cardio: Rate: regular rate Rhythm: regular rhythm GI: Inspection: normal to inspection, distended and incision GI Palp: Yes abdominal tenderness, Yes Soft to palpation, No Tenderness to palpation present (GI), No Guarding due to palpation present (GI) and No Rigid due to palpation Objective Data Vital Signs Vital Signs: Vital Signs - 24 hr 02/20/25 08:00 02/20/25 14:00 02/20/25 20:00 Temperature 36.6 C Pulse Rate 80 75 Respiratory Rate 19 18 Blood Pressure 120/62 Pulse Oximetry 100 100 99 Oxygen Delivery Room Air Room Air 02/20/25 20:58 02/21/25 06:00 Temperature 36.2 C L 36.8 C Pulse Rate 75 74 Respiratory Rate 18 20 Blood Pressure 120/58 L 113/53 L Pulse Oximetry 99 100 Oxygen Delivery Intake/Output Intake/Output: Intake & Output 02/18/25 02/19/25 02/20/25 02/21/25 23:59 23:59 23:59 23:59 Intake Total 1672.5 2840 0 Balance 1672.5 2840 0 Meds/Results Medications: Active Medications Generic Name Dose Route Start Last Admin Trade Name Freq PRN Reason Stop Dose Admin Acetaminophen 650 mg 02/20/25 02:29 02/20/25 10:46 Acetaminophen 325 Mg Tablet PO 650 mg Q6H PRN Administration Mild Pain (1-3) or Fever Bupropion HCl 150 mg 02/20/25 09:00 02/20/25 08:26 Bupropion Hcl Xl (24 Hr) 150 Mg Tabcr PO 150 mg DAILY MOOSE Administration Dextrose 12.5 gm 02/19/25 22:23 02/20/25 06:10 Dextrose 50% 25 Gm/50 Ml Syringe IV PUSH 12.5 gm PRN PRN Administration Hypoglycemia Protocol Glucagon 1 mg 02/19/25 22:23 Glucagon For Inj 1 Mg Vial IM PRN PRN Hypoglycemia Protocol Glucose 15 gm 02/19/25 22:23 Glucose Oral Gel 15 Gm Of Glucse In 37.5 Gm Tube PO PRN PRN Hypoglycemia Protocol Heparin Sodium (Porcine) 5,000 units 02/20/25 21:00 02/20/25 20:48 Heparin Sodium 5,000 Units/Ml Vial SUB-Q 5,000 units Q12HR MOOSE Administration Hydromorphone HCl 0.5 mg 02/19/25 13:22 02/20/25 18:32 Hydromorphone Hcl Inj (*Crx) 2 Mg/Ml Vial IV PUSH 0.5 mg Q4H PRN Administration Pain Rated 7-10 Hydroxyzine HCl 25 mg 02/20/25 09:00 02/20/25 08:14 Hydroxyzine Hcl 25 Mg Tablet PO 25 mg DAILY MOOSE Administration Dextrose 1,000 mls @ 100 mls/hr 02/19/25 22:23 Dextrose 5% 1,000 Ml IVPB PRN PRN Hypoglycemia Protocol Dextrose/Sodium Chloride 1,000 mls @ 100 mls/hr 02/20/25 12:00 02/21/25 06:28 Dextrose 5% Sodium Chloride 0.9% IV CONT 100 mls/hr .Q10H MOOSE Administration Ceftriaxone Sodium 1 gm/ 50 mls @ 100 mls/hr 02/20/25 17:00 02/20/25 16:39 Sodium Chloride IVPB 100 mls/hr Q24H MOOSE Administration Magnesium Sulfate 2 gm in 50 mls @ 25 mls/hr 02/21/25 07:35 Magnesium Sulf 2 Gm/Water 50ml IVPB 02/21/25 09:34 ONCE ONE Insulin Aspart 2 - 5 units 02/20/25 00:00 02/21/25 06:33 Insulin Aspart (*Bkc) 100 Units/Ml SUB-Q Not Given Q6HR MOOSE Protocol Ondansetron HCl 4 mg 02/19/25 13:22 02/20/25 19:46 Ondansetron Inj 4 Mg/2 Ml Vial IV PUSH 4 mg Q4H PRN Administration Nausea Pantoprazole Sodium 40 mg 02/21/25 09:00 Pantoprazole Sodium Iv 40 Mg Vial IV PUSH QAM MOOSE Rosuvastatin Calcium 5 mg 02/20/25 21:00 02/21/25 01:49 Rosuvastatin 5 Mg Tablet PO Not Given HS MOOSE Sertraline HCl 50 mg 02/20/25 09:00 02/20/25 08:14 Sertraline Hcl 50 Mg Tablet PO 50 mg DAILY MOOSE Administration Terbinafine HCl 250 mg 02/20/25 21:00 02/21/25 01:49 Terbinafine Hcl 250 Mg Tablet PO Not Given HS MOOSE Radiology Results: ITS Impressions Chest X-Ray 02/19/25 12:12 IMPRESSION: No focal infiltrate or effusion. Abdomen/Pelvis CT 02/19/25 14:09 IMPRESSION: Supraumbilical small bowel containing hernia with indeterminate affect on the mesentery and possible compression and distention of a branch of the superior mesenteric vein, as detailed above. Additional findings within the anterior wall of the proximal transverse colon which extends into a additional anterior abdominal wall hernia, for which a possible Cuenca's hernia is suspected. Severe hypovolemia is also noted, as detailed above Thank you for the opportunity to assist in the care of your patient. For questions or concerns regarding this interpretation, please reach out to me directly at [phone]. Labs Labs: Laboratory Results - last 24 hr 02/20/25 02/20/25 02/20/25 11:38 12:16 12:53 WBC RBC Hgb Hct MCV MCH MCHC RDW Plt Count MPV Immature Gran % (Auto) Neut % (Auto) Lymph % (Auto) [place]duff[place] % (Auto) Eos % (Auto) Baso % (Auto) Lymph # (Auto) [place]duff[place] # (Auto) Eos # (Auto) Baso # (Auto) Abs Immat Gran (auto) Absolute Neuts (auto) Absolute Nucleated RBC Nucleated RBC % Sodium Potassium Chloride Carbon Dioxide Anion Gap BUN Creatinine Estim Creat Clear Calc Estimated GFR Glucose POC Capillary Glucose 71 Lactic Acid 1.4 Calcium Phosphorus Magnesium Total Bilirubin AST ALT Alkaline Phosphatase Total Protein Albumin Lipase Urine Color Yellow Urine Appearance Clear Urine pH 5.0 Ur Specific Cobb 1.010 Urine Protein Trace Urine Glucose (UA) Negative Urine Ketones Trace H Ur Blood (Man) Negative Urine Nitrate Negative Urine Bilirubin Negative Urine Urobilinogen 0.2 Ur Leukocyte Esterase 2+ H Urine RBC 0-2 Urine WBC 21-50 H Ur Squamous Epith Cells Occasional Urine Bacteria None seen Urine Casts 3-5 Urine Eosinophils U Random Total Protein Ur Random Sodium Ur Random Urea Urine Creatinine Protein/Creat Ratio 2 02/20/25 02/20/25 02/20/25 14:05 14:06 17:50 WBC RBC Hgb Hct MCV MCH MCHC RDW Plt Count MPV Immature Gran % (Auto) Neut % (Auto) Lymph % (Auto) [place]ff[place] % (Auto) Eos % (Auto) Baso % (Auto) Lymph # (Auto) [place]duff[place] # (Auto) Eos # (Auto) Baso # (Auto) Abs Immat Gran (auto) Absolute Neuts (auto) Absolute Nucleated RBC Nucleated RBC % Sodium Potassium Chloride Carbon Dioxide Anion Gap BUN Creatinine Estim Creat Clear Calc Estimated GFR Glucose POC Capillary Glucose 91 Lactic Acid Calcium Phosphorus Magnesium Total Bilirubin AST ALT Alkaline Phosphatase Total Protein Albumin Lipase Urine Color Urine Appearance Urine pH Ur Specific Cobb Urine Protein Urine Glucose (UA) Urine Ketones Ur Blood (Man) Urine Nitrate Urine Bilirubin Urine Urobilinogen Ur Leukocyte Esterase Urine RBC Urine WBC Ur Squamous Epith Cells Urine Bacteria Urine Casts Urine Eosinophils None seen U Random Total Protein 26 26 Ur Random Sodium 111 Ur Random Urea 470 Urine Creatinine 62.1 62.3 Protein/Creat Ratio 2 0.42 H 02/20/25 02/20/25 02/21/25 18:04 20:14 00:16 WBC RBC Hgb Hct MCV MCH MCHC RDW Plt Count MPV Immature Gran % (Auto) Neut % (Auto) Lymph % (Auto) [place]duffie % (Auto) Eos % (Auto) Baso % (Auto) Lymph # (Auto) [place]duffie # (Auto) Eos # (Auto) Baso # (Auto) Abs Immat Gran (auto) Absolute Neuts (auto) Absolute Nucleated RBC Nucleated RBC % Sodium 138 Potassium 4.6 Chloride 107 Carbon Dioxide 17 L Anion Gap 14 H BUN 38 H D Creatinine 2.46 H Estim Creat Clear Calc 26 Estimated GFR 21 L Glucose 87 POC Capillary Glucose 95 99 Lactic Acid Calcium 8.4 Phosphorus 3.3 Magnesium Total Bilirubin AST ALT Alkaline Phosphatase Total Protein Albumin 3.6 Lipase Urine Color Urine Appearance Urine pH Ur Specific Cobb Urine Protein Urine Glucose (UA) Urine Ketones Ur Blood (Man) Urine Nitrate Urine Bilirubin Urine Urobilinogen Ur Leukocyte Esterase Urine RBC Urine WBC Ur Squamous Epith Cells Urine Bacteria Urine Casts Urine Eosinophils U Random Total Protein Ur Random Sodium Ur Random Urea Urine Creatinine Protein/Creat Ratio 2 02/21/25 02/21/25 06:05 06:08 WBC 5.6 RBC 3.92 L Hgb 10.4 L Hct 32.9 L MCV 83.9 MCH 26.5 MCHC 31.6 L RDW 13.8 Plt Count 261 MPV 9.9 Immature Gran % (Auto) 0.5 Neut % (Auto) 62.1 Lymph % (Auto) 29.1 Mcduffie % (Auto) 6.5 Eos % (Auto) 1.4 Baso % (Auto) 0.4 Lymph # (Auto) 1.62 [place]duffie # (Auto) 0.4 Eos # (Auto) 0.1 Baso # (Auto) 0.0 Abs Immat Gran (auto) 0.03 Absolute Neuts (auto) 3.5 Absolute Nucleated RBC 0.000 Nucleated RBC % 0.0 Sodium 140 Potassium 4.6 Chloride 108 H Carbon Dioxide 20 L Anion Gap 12 BUN 29 H Creatinine 1.91 H Estim Creat Clear Calc 34 Estimated GFR 28 L Glucose 133 H POC Capillary Glucose 124 H Lactic Acid Calcium 8.2 L Phosphorus Magnesium 1.0 L Total Bilirubin 0.3 AST 31 ALT 27 Alkaline Phosphatase 64 Total Protein 6.4 Albumin 3.5 Lipase 452 H Urine Color Urine Appearance Urine pH Ur Specific Cobb Urine Protein Urine Glucose (UA) Urine Ketones Ur Blood (Man) Urine Nitrate Urine Bilirubin Urine Urobilinogen Ur Leukocyte Esterase Urine RBC Urine WBC Ur Squamous Epith Cells Urine Bacteria Urine Casts Urine Eosinophils U Random Total Protein Ur Random Sodium Ur Random Urea Urine Creatinine Protein/Creat Ratio 2
[2025-02-21] MEDS: MAGNESIUM SULF 2 GM/WATER 50ML 2 GM/50 ML BAG IVPB (08:39)
[2025-02-21] MEDS: buPROPion HCL XL (24 HR) 150 MG TABCR PO (08:43)
[2025-02-21] MEDS: PANTOPRAZOLE SODIUM IV 40 MG VIAL IV PUSH (08:43)
[2025-02-21] MEDS: SERTRALINE HCL 50 MG TABLET PO (08:44)
--- NOTE | 2025-02-21 11:32 | P.PNNP_ITS ---
Progress Note: A&P Assessment and Plan (1) Acute kidney injury: Code(s): N17.9 - Acute kidney failure, unspecified Status: Acute Assessment and Plan: * presumably normal renal function prior to admission * improvement noted with IVF hydration * several issues playing a role: * prerenal factors * ongoing use of LUCIA-I and metformin prior to admission * pancreatitis * other(?) * evaluation to date noted: * CT of A/P with bilateral kidneys are unremarkable, without hydronephrosis or renal calculi. * urine electrolytes non-prerenal * urine eosinophils negative * mild proteinuria * continue to follow trend of labs and UOP (2) Pancreatitis: Code(s): K85.90 - Acute pancreatitis without necrosis or infection, unspecified Status: Acute Assessment and Plan: * suggested by elevated lipase on admission * however, no CT evidence (although lack of IV contrast limits evaluation) * follow clinical exam and trend of lipase * advance diet as tolerated (3) Urinary tract infection: Code(s): N39.0 - Urinary tract infection, site not specified Status: Acute Assessment and Plan: * admission UA suggestive * however, no urine collection done * on empiric antibiotics (4) Incisional hernia: Code(s): K43.2 - Incisional hernia without obstruction or gangrene Status: Acute Assessment and Plan: * Surgery evaluation/recommendations noted * plan outpatient follow-up to discuss surgical options (5) Hypertension: Code(s): I10 - Essential (primary) hypertension Status: Chronic Assessment and Plan: * reasonable control at this time * LUCIA-I on hold due to #1 * follow trend of hemodynamics (6) Diabetes mellitus: Code(s): E11.9 - Type 2 diabetes mellitus without complications Status: Chronic Assessment and Plan: * follow accu-cheks * glycemic control per hospitalist Will continue to follow. L Subjective Date/time seen: 02/21/25 11:32 Interval history: Follow-up for acute kidney injury/acute renal failure. Renal function/creatinine continues to improve since admission with IVF hydration; diet slowly being advanced (clear liquids) and so far tolerating at this time; no apparent distress voiced at the time of my visit; pain appears better if not resolved. Exam 2 Narrative: General: WD/WN female in NAD Heart: normal S1 and S2; no rub Lungs: clear to auscultation Abdomen: soft, nontender, nondistended, positive bowel sounds Extremities: no cyanosis or clubbing; no edema Skin: warm and dry Objective Data Vital Signs Vital Signs: Vital Signs Temp Pulse Resp BP Pulse Ox O2 Del Method 02/21/25 08:43 Room Air 02/21/25 06:00 98.3 F 74 20 113/53 L 100 02/20/25 20:58 97.2 F L 75 18 120/58 L 99 02/20/25 20:00 75 18 99 Room Air Intake/Output Intake/Output: Intake & Output 02/18/25 02/19/25 02/20/25 02/21/25 23:59 23:59 23:59 23:59 Intake Total 1672.5 2840 726.7 Balance 1672.5 2840 726.7 Meds/Results Medications: Active Medications Generic Name Dose Route Start Last Admin Trade Name Freq PRN Reason Stop Dose Admin Acetaminophen 650 mg 02/20/25 02:29 02/20/25 10:46 Acetaminophen 325 Mg Tablet PO 650 mg Q6H PRN Administration Mild Pain (1-3) or Fever Bupropion HCl 150 mg 02/20/25 09:00 02/21/25 08:43 Bupropion Hcl Xl (24 Hr) 150 Mg Tabcr PO 150 mg DAILY MOOSE Administration Dextrose 12.5 gm 02/19/25 22:23 02/20/25 06:10 Dextrose 50% 25 Gm/50 Ml Syringe IV PUSH 12.5 gm PRN PRN Administration Hypoglycemia Protocol Glucagon 1 mg 02/19/25 22:23 Glucagon For Inj 1 Mg Vial IM PRN PRN Hypoglycemia Protocol Glucose 15 gm 02/19/25 22:23 Glucose Oral Gel 15 Gm Of Glucse In 37.5 Gm Tube PO PRN PRN Hypoglycemia Protocol Heparin Sodium (Porcine) 5,000 units 02/20/25 21:00 02/21/25 08:43 Heparin Sodium 5,000 Units/Ml Vial SUB-Q 5,000 units Q12HR MOOSE Administration Hydromorphone HCl 0.5 mg 02/19/25 13:22 02/20/25 18:32 Hydromorphone Hcl Inj (*Crx) 2 Mg/Ml Vial IV PUSH 0.5 mg Q4H PRN Administration Pain Rated 7-10 Hydroxyzine HCl 25 mg 02/20/25 09:00 02/21/25 08:43 Hydroxyzine Hcl 25 Mg Tablet PO 25 mg DAILY MOOSE Administration Dextrose 1,000 mls @ 100 mls/hr 02/19/25 22:23 Dextrose 5% 1,000 Ml IVPB PRN PRN Hypoglycemia Protocol Dextrose/Sodium Chloride 1,000 mls @ 100 mls/hr 02/20/25 12:00 02/21/25 09:50 Dextrose 5% Sodium Chloride 0.9% IV CONT 100 mls/hr .Q10H MOOSE Administration Ceftriaxone Sodium 1 gm/ 50 mls @ 100 mls/hr 02/20/25 17:00 02/20/25 16:39 Sodium Chloride IVPB 100 mls/hr Q24H MOOSE Administration Insulin Aspart 2 - 5 units 02/20/25 00:00 02/21/25 12:36 Insulin Aspart (*Bkc) 100 Units/Ml SUB-Q Not Given Q6HR MOOSE Protocol Ondansetron HCl 4 mg 02/19/25 13:22 02/20/25 19:46 Ondansetron Inj 4 Mg/2 Ml Vial IV PUSH 4 mg Q4H PRN Administration Nausea Pantoprazole Sodium 40 mg 02/21/25 09:00 02/21/25 08:43 Pantoprazole Sodium Iv 40 Mg Vial IV PUSH 40 mg QAM MOOSE Administration Rosuvastatin Calcium 5 mg 02/20/25 21:00 02/21/25 01:49 Rosuvastatin 5 Mg Tablet PO Not Given HS MOOSE Sertraline HCl 50 mg 02/20/25 09:00 02/21/25 08:44 Sertraline Hcl 50 Mg Tablet PO 50 mg DAILY MOOSE Administration Terbinafine HCl 250 mg 02/20/25 21:00 02/21/25 01:49 Terbinafine Hcl 250 Mg Tablet PO Not Given HS MOOSE Radiology Results: ITS Impressions Chest X-Ray 02/19/25 12:12 IMPRESSION: No focal infiltrate or effusion. Abdomen/Pelvis CT 02/19/25 14:09 IMPRESSION: Supraumbilical small bowel containing hernia with indeterminate affect on the mesentery and possible compression and distention of a branch of the superior mesenteric vein, as detailed above. Additional findings within the anterior wall of the proximal transverse colon which extends into a additional anterior abdominal wall hernia, for which a possible Cuenca's hernia is suspected. Severe hypovolemia is also noted, as detailed above Thank you for the opportunity to assist in the care of your patient. For questions or concerns regarding this interpretation, please reach out to me directly at [phone]. Labs Labs: Laboratory Tests 02/21/25 06:08 02/21/25 06:08 Calcium 8.2 L Magnesium 1.0 L Total Bilirubin 0.3 AST 31 ALT 27 Alkaline Phosphatase 64 Total Protein 6.4 Albumin 3.5 Lipase 452 H
--- NOTE | 2025-02-21 12:41 | PM.IMPN ---
Progress Note: A&P Assessment and Plan (1) Pancreatitis: Code(s): K85.90 - Acute pancreatitis without necrosis or infection, unspecified Status: Acute (2) Acute renal failure (ARF): Code(s): N17.9 - Acute kidney failure, unspecified Status: Acute (3) Acute dehydration: Code(s): E86.0 - Dehydration Status: Acute Plan 49-year-old female presents the hospital with epigastric pain right-sided chest pain. Patient states the epigastric pain has been going on for about a month however only last few days she has been vomiting and not able to eat or drink. Patient denies alcohol use. Patient denies fevers chills. Patient denies risk factors for HIV or AIDS. In the ED her lab work shows carbon dioxide 15, anion gap 18, BUN of 59, creatinine 4.75, estimated GFR 10, glucose of 119, troponins are negative lipase of 823. CT of the abdomen shows Supraumbilical small bowel containing hernia with indeterminate affect on the mesentery and possible compression and distention of a branch of the superior mesenteric vein, as detailed above. Additional findings within the anterior wall of the proximal transverse colon which extends into a additional anterior abdominal wall hernia, for which a possible Cuenca's hernia is suspected.. 15 mm defect is identified within the supra umbilical fossa through with multiple loops of small bowel project. Additional defects identified cranial to this which contains a small segment of the wall of transverse colon and adjacent mesentery. Proximal dilatation and distal decompression is noted. Air is present within the distal bowel without suspicion of strangulation. Consulted General surgery with regard to these findings possible obstructed hernia. Lactate came back normal. No concern for obstructive hernia. This will be followed up as an outpatient basis. History of GI bleed needing vascular coiling in the past per CT scan noted within the distribution of of branches of left gastric artery. Dehydration IV fluid DRAGAN unknown baseline creatinine admission creatinine of 4.7. No prior labs are available to review. Nephrology has been consulted. No hydronephrosis on CT Trend lipase. CT evaluation of pancreas was limited secondary to lack of IV contrast. Lipase trending down. Type 2 diabetes on Trulicity and metformin at home which are on hold. Continue to monitor Accu-Cheks. SSI for trending up. Currently low. Started on dextrose normal saline Hypertension lisinopril on hold Anxiety depression on bupropion and sertraline UTI on ceftriaxone Hyperlipidemia on rosuvastatin. CK normal DVT prophylaxis heparin subQ Code status full code Subjective Date/time seen: 02/21/25 12:41 Interval history: Pain has resolved. Feeling better. Started on a clear liquid diet by surgery today. Review of Systems Review of Systems: All systems reviewed & are unremarkable except as noted in HPI and below Exam Narrative: General: well appearing, appears stated age. Not in acute distress HEENT: normocephalic, atraumatic. Mucous membranes moist. EOMI, PERRLA Respiratory: clear to auscultation bilaterally. No rales/rhonic/wheezes. Cardiovascular: Regular rate and rhythm, normal S1-S2 upon ascultation. No murmurs, rubs, or clicks. Abdomen: Soft, round, right epigastric mass which is not tender, surgical scar noted supraumbilical No rebound, no guarding. Extremities: No cyanosis, clubbing, or edema present. Pulses are palpable 2/2. Active ROM to all four extremities. Neuro: Alert and orientated x 4. PERRLA. Cranial nerves 2-12 intact without focal deficit. Skin: Warm, dry, and intact, without rash, erythema, or lesion. Psych: pleasant, cooperative, normal speech, normal affect Objective Data Vital Signs Vital Signs: Vital Signs - 24 hr 02/20/25 14:00 02/20/25 20:00 02/20/25 20:58 Temperature 98 F 97.2 F L Pulse Rate 80 75 75 Respiratory Rate 19 18 18 Blood Pressure 120/62 120/58 L Pulse Oximetry 100 99 99 Oxygen Delivery Room Air 02/21/25 06:00 Temperature 98.3 F Pulse Rate 74 Respiratory Rate 20 Blood Pressure 113/53 L Pulse Oximetry 100 Oxygen Delivery Intake/Output Intake/Output: Intake & Output 02/18/25 02/19/25 02/20/25 02/21/25 23:59 23:59 23:59 23:59 Intake Total 1672.5 2840 516.7 Balance 1672.5 2840 516.7 Meds/Results Medications: Active Medications Generic Name Dose Route Start Last Admin Trade Name Freq PRN Reason Stop Dose Admin Acetaminophen 650 mg 02/20/25 02:29 02/20/25 10:46 Acetaminophen 325 Mg Tablet PO 650 mg Q6H PRN Administration Mild Pain (1-3) or Fever Bupropion HCl 150 mg 02/20/25 09:00 02/21/25 08:43 Bupropion Hcl Xl (24 Hr) 150 Mg Tabcr PO 150 mg DAILY MOOSE Administration Dextrose 12.5 gm 02/19/25 22:23 02/20/25 06:10 Dextrose 50% 25 Gm/50 Ml Syringe IV PUSH 12.5 gm PRN PRN Administration Hypoglycemia Protocol Glucagon 1 mg 02/19/25 22:23 Glucagon For Inj 1 Mg Vial IM PRN PRN Hypoglycemia Protocol Glucose 15 gm 02/19/25 22:23 Glucose Oral Gel 15 Gm Of Glucse In 37.5 Gm Tube PO PRN PRN Hypoglycemia Protocol Heparin Sodium (Porcine) 5,000 units 02/20/25 21:00 02/21/25 08:43 Heparin Sodium 5,000 Units/Ml Vial SUB-Q 5,000 units Q12HR MOOSE Administration Hydromorphone HCl 0.5 mg 02/19/25 13:22 02/20/25 18:32 Hydromorphone Hcl Inj (*Crx) 2 Mg/Ml Vial IV PUSH 0.5 mg Q4H PRN Administration Pain Rated 7-10 Hydroxyzine HCl 25 mg 02/20/25 09:00 02/21/25 08:43 Hydroxyzine Hcl 25 Mg Tablet PO 25 mg DAILY MOOSE Administration Dextrose 1,000 mls @ 100 mls/hr 02/19/25 22:23 Dextrose 5% 1,000 Ml IVPB PRN PRN Hypoglycemia Protocol Dextrose/Sodium Chloride 1,000 mls @ 100 mls/hr 02/20/25 12:00 02/21/25 09:50 Dextrose 5% Sodium Chloride 0.9% IV CONT 100 mls/hr .Q10H MOOSE Administration Ceftriaxone Sodium 1 gm/ 50 mls @ 100 mls/hr 02/20/25 17:00 02/20/25 16:39 Sodium Chloride IVPB 100 mls/hr Q24H MOOSE Administration Insulin Aspart 2 - 5 units 02/20/25 00:00 02/21/25 12:36 Insulin Aspart (*Bkc) 100 Units/Ml SUB-Q Not Given Q6HR MOOSE Protocol Ondansetron HCl 4 mg 02/19/25 13:22 02/20/25 19:46 Ondansetron Inj 4 Mg/2 Ml Vial IV PUSH 4 mg Q4H PRN Administration Nausea Pantoprazole Sodium 40 mg 02/21/25 09:00 02/21/25 08:43 Pantoprazole Sodium Iv 40 Mg Vial IV PUSH 40 mg QAM MOOSE Administration Rosuvastatin Calcium 5 mg 02/20/25 21:00 02/21/25 01:49 Rosuvastatin 5 Mg Tablet PO Not Given HS MOOSE Sertraline HCl 50 mg 02/20/25 09:00 02/21/25 08:44 Sertraline Hcl 50 Mg Tablet PO 50 mg DAILY MOOSE Administration Terbinafine HCl 250 mg 02/20/25 21:00 02/21/25 01:49 Terbinafine Hcl 250 Mg Tablet PO Not Given HS MOOSE Radiology Results: ITS Impressions Chest X-Ray 02/19/25 12:12 IMPRESSION: No focal infiltrate or effusion. Abdomen/Pelvis CT 02/19/25 14:09 IMPRESSION: Supraumbilical small bowel containing hernia with indeterminate affect on the mesentery and possible compression and distention of a branch of the superior mesenteric vein, as detailed above. Additional findings within the anterior wall of the proximal transverse colon which extends into a additional anterior abdominal wall hernia, for which a possible Cuenca's hernia is suspected. Severe hypovolemia is also noted, as detailed above Thank you for the opportunity to assist in the care of your patient. For questions or concerns regarding this interpretation, please reach out to me directly at [phone]. Labs Labs: Laboratory Results - last 24 hr 02/20/25 02/20/25 02/20/25 12:53 14:05 14:06 WBC RBC Hgb Hct MCV MCH MCHC RDW Plt Count MPV Immature Gran % (Auto) Neut % (Auto) Lymph % (Auto) [place] % (Auto) Eos % (Auto) Baso % (Auto) Lymph # (Auto) [place] # (Auto) Eos # (Auto) Baso # (Auto) Abs Immat Gran (auto) Absolute Neuts (auto) Absolute Nucleated RBC Nucleated RBC % Sodium Potassium Chloride Carbon Dioxide Anion Gap BUN Creatinine Estim Creat Clear Calc Estimated GFR Glucose POC Capillary Glucose Calcium Phosphorus Magnesium Total Bilirubin AST ALT Alkaline Phosphatase Total Protein Albumin Lipase Urine Color Yellow Urine Appearance Clear Urine pH 5.0 Ur Specific [place] 1.010 Urine Protein Trace Urine Glucose (UA) Negative Urine Ketones Trace H Ur Blood (Man) Negative Urine Nitrate Negative Urine Bilirubin Negative Urine Urobilinogen 0.2 Ur Leukocyte Esterase 2+ H Urine RBC 0-2 Urine WBC 21-50 H Ur Squamous Epith Cells Occasional Urine Bacteria None seen Urine Casts 3-5 Urine Eosinophils None seen U Random Total Protein 26 26 Ur Random Sodium 111 Ur Random Urea 470 Urine Creatinine 62.1 62.3 Protein/Creat Ratio 2 0.42 H 02/20/25 02/20/25 02/20/25 17:50 18:04 20:14 WBC RBC Hgb Hct MCV MCH MCHC RDW Plt Count MPV Immature Gran % (Auto) Neut % (Auto) Lymph % (Auto) [place] % (Auto) Eos % (Auto) Baso % (Auto) Lymph # (Auto) [place] # (Auto) Eos # (Auto) Baso # (Auto) Abs Immat Gran (auto) Absolute Neuts (auto) Absolute Nucleated RBC Nucleated RBC % Sodium 138 Potassium 4.6 Chloride 107 Carbon Dioxide 17 L Anion Gap 14 H BUN 38 H D Creatinine 2.46 H Estim Creat Clear Calc 26 Estimated GFR 21 L Glucose 87 POC Capillary Glucose 91 95 Calcium 8.4 Phosphorus 3.3 Magnesium Total Bilirubin AST ALT Alkaline Phosphatase Total Protein Albumin 3.6 Lipase Urine Color Urine Appearance Urine pH Ur Specific [place] Urine Protein Urine Glucose (UA) Urine Ketones Ur Blood (Man) Urine Nitrate Urine Bilirubin Urine Urobilinogen Ur Leukocyte Esterase Urine RBC Urine WBC Ur Squamous Epith Cells Urine Bacteria Urine Casts Urine Eosinophils U Random Total Protein Ur Random Sodium Ur Random Urea Urine Creatinine Protein/Creat Ratio 2 02/21/25 02/21/25 02/21/25 00:16 06:05 06:08 WBC 5.6 RBC 3.92 L Hgb 10.4 L Hct 32.9 L MCV 83.9 MCH 26.5 MCHC 31.6 L RDW 13.8 Plt Count 261 MPV 9.9 Immature Gran % (Auto) 0.5 Neut % (Auto) 62.1 Lymph % (Auto) 29.1 [place] % (Auto) 6.5 Eos % (Auto) 1.4 Baso % (Auto) 0.4 Lymph # (Auto) 1.62 [place] # (Auto) 0.4 Eos # (Auto) 0.1 Baso # (Auto) 0.0 Abs Immat Gran (auto) 0.03 Absolute Neuts (auto) 3.5 Absolute Nucleated RBC 0.000 Nucleated RBC % 0.0 Sodium 140 Potassium 4.6 Chloride 108 H Carbon Dioxide 20 L Anion Gap 12 BUN 29 H Creatinine 1.91 H Estim Creat Clear Calc 34 Estimated GFR 28 L Glucose 133 H POC Capillary Glucose 99 124 H Calcium 8.2 L Phosphorus Magnesium 1.0 L Total Bilirubin 0.3 AST 31 ALT 27 Alkaline Phosphatase 64 Total Protein 6.4 Albumin 3.5 Lipase 452 H Urine Color Urine Appearance Urine pH Ur Specific [place] Urine Protein Urine Glucose (UA) Urine Ketones Ur Blood (Man) Urine Nitrate Urine Bilirubin Urine Urobilinogen Ur Leukocyte Esterase Urine RBC Urine WBC Ur Squamous Epith Cells Urine Bacteria Urine Casts Urine Eosinophils U Random Total Protein Ur Random Sodium Ur Random Urea Urine Creatinine Protein/Creat Ratio 2 02/21/25 11:50 WBC RBC Hgb Hct MCV MCH MCHC RDW Plt Count MPV Immature Gran % (Auto) Neut % (Auto) Lymph % (Auto) [place] % (Auto) Eos % (Auto) Baso % (Auto) Lymph # (Auto) [place] # (Auto) Eos # (Auto) Baso # (Auto) Abs Immat Gran (auto) Absolute Neuts (auto) Absolute Nucleated RBC Nucleated RBC % Sodium Potassium Chloride Carbon Dioxide Anion Gap BUN Creatinine Estim Creat Clear Calc Estimated GFR Glucose POC Capillary Glucose 165 H Calcium Phosphorus Magnesium Total Bilirubin AST ALT Alkaline Phosphatase Total Protein Albumin Lipase Urine Color Urine Appearance Urine pH Ur Specific [place] Urine Protein Urine Glucose (UA) Urine Ketones Ur Blood (Man) Urine Nitrate Urine Bilirubin Urine Urobilinogen Ur Leukocyte Esterase Urine RBC Urine WBC Ur Squamous Epith Cells Urine Bacteria Urine Casts Urine Eosinophils U Random Total Protein Ur Random Sodium Ur Random Urea Urine Creatinine Protein/Creat Ratio 2
[2025-02-21 13:07] VITALS: O2SAT 98
[2025-02-21 14:00] VITALS: BP 129/70; PULSE 74; RESP 18; TEMP 36.6; O2SAT 100
[2025-02-21] MEDS: cefTRIAXone 1 GM in SODIUM CHLORIDE 0.9% IV 50 ML 100 ML IVPB (16:56)
[2025-02-21] MEDS: ROSUVASTATIN 5 MG TABLET PO (20:37)
[2025-02-21] MEDS: TERBINAFINE HCL 250 MG TABLET PO (20:37)
[2025-02-21 20:50] VITALS: PULSE 71; RESP 20; O2SAT 100
[2025-02-21 20:52] VITALS: O2SAT 100
[2025-02-21 21:15] VITALS: BP 114/72; PULSE 71; RESP 20; TEMP 37.2; O2SAT 100
[2025-02-22 05:50] VITALS: BP 117/77; PULSE 77; RESP 20; TEMP 36.6; O2SAT 98
[2025-02-22 06:34] LABS: Hematocrit 36.5 % (37.0-47.0); Hemoglobin 11.5 g/dL (12.0-15.0); Immature Granulocyte Percent A 0.5 % (0-0.5); Lymphocytes Absolute Auto 1.70 K/mm3 (0.9-3.2); Mean Corpuscular HGB Conc 31.5 g/dl (32-36); Mean Corpuscular Hemoglobin 26.6 pg (26-34); Mean Corpuscular Volume 84.3 fl (80-100); Nucleated Red Blood Cells Absolute Auto 0.000 K/mm3 (0.0-0.012); Nucleated Red Blood Cells Perc 0.0 % (0.0-0.2); Platelet Count Result 302 k/mm3 (150-375); Red Blood Count 4.33 M/mm3 (4.2-5.4); White Blood Count 6.2 K/mm3 (4.5-10.0)
[2025-02-22] MEDS: DEXTROSE 5%/0.9% SOD CHL 1,000 ML 100 ML IV CONT (06:51)
[2025-02-22 06:56] LABS: Alanine Aminotransferase 34 U/L (6-35); Albumin Level 3.3 g/dL (3.5-5.1); Alkaline Phosphatase 67 U/L (38-126); Anion Gap 8 mmol/L (4-12); Aspartate Amino Transferase 31 U/L (14-36); Bilirubin,Total 0.2 mg/dL (0.2-1.3); Blood Urea Nitrogen 16 mg/dL (7-17); Calcium 8.0 mg/dL (8.4-10.2); Carbon Dioxide 23 mmol/L (22-30); Chloride 111 mmol/L (98-107); Estimated CRCL calculation 46 ml/min; Estimated Glomerular Filt Rate 41; Glucose 152 mg/dL (65-110); Lipase 301 U/L (23-300); Magnesium 1.3 mg/dL (1.6-2.3); Potassium 4.3 mmol/L (3.4-5.0); Sodium 142 mmol/L (137-145); Total Protein 6.2 g/dL (6.3-8.2)
--- NOTE | 2025-02-22 07:42 | PM.PNGS ---
Progress Note: A&P Assessment and Plan (1) Pancreatitis: Code(s): K85.90 - Acute pancreatitis without necrosis or infection, unspecified Status: Acute Assessment and Plan: exam completely benign, labs trending towards normal, will advance diet as tolerated (2) Incisional hernia: Code(s): K43.2 - Incisional hernia without obstruction or gangrene Status: Acute Assessment and Plan: chronic, will address as outpatient, would likely benefit from abdominal binder and light activity restrictions Subjective Subjective Date/Time Seen: 02/22/25 07:42 Interval history: feels much better, abdominal exam resolved, tonya full liquid diet Review of Systems Review of Systems: All systems reviewed & are unremarkable except as noted in HPI and below Exam Const: General: cooperative, comfortable and no acute distress Resp: Auscultation: clear to auscultation bilaterally Cardio: Rate: regular rate Rhythm: regular rhythm GI: Inspection: normal to inspection and non-distended GI Palp: No abdominal tenderness and Yes Soft to palpation Objective Data Vital Signs Vital Signs: Vital Signs - 24 hr 02/21/25 08:43 02/21/25 13:07 02/21/25 14:00 Temperature 36.6 C Pulse Rate 74 Respiratory Rate 18 Blood Pressure 129/70 Pulse Oximetry 98 100 Oxygen Delivery Room Air Room Air 02/21/25 20:50 02/21/25 20:52 02/21/25 21:15 Temperature 37.2 C Pulse Rate 71 71 Respiratory Rate 20 20 Blood Pressure 114/72 Pulse Oximetry 100 100 100 Oxygen Delivery Room Air Room Air 02/22/25 05:50 Temperature 36.6 C Pulse Rate 77 Respiratory Rate 20 Blood Pressure 117/77 Pulse Oximetry 98 Oxygen Delivery Intake/Output Intake/Output: Intake & Output 02/19/25 02/20/25 02/21/25 02/22/25 23:59 23:59 23:59 23:59 Intake Total 1672.5 2890 1966.7 1075 Balance 1672.5 2890 1966.7 1075 Meds/Results Medications: Active Medications Generic Name Dose Route Start Last Admin Trade Name Freq PRN Reason Stop Dose Admin Acetaminophen 650 mg 02/20/25 02:29 02/20/25 10:46 Acetaminophen 325 Mg Tablet PO 650 mg Q6H PRN Administration Mild Pain (1-3) or Fever Bupropion HCl 150 mg 02/20/25 09:00 07/12/25 08:43 Bupropion Hcl Xl (24 Hr) 150 Mg Tabcr PO 150 mg DAILY MOOSE Administration Dextrose 12.5 gm 02/19/25 22:23 02/20/25 06:10 Dextrose 50% 25 Gm/50 Ml Syringe IV PUSH 12.5 gm PRN PRN Administration Hypoglycemia Protocol Glucagon 1 mg 02/19/25 22:23 Glucagon For Inj 1 Mg Vial IM PRN PRN Hypoglycemia Protocol Glucose 15 gm 02/19/25 22:23 Glucose Oral Gel 15 Gm Of Glucse In 37.5 Gm Tube PO PRN PRN Hypoglycemia Protocol Heparin Sodium (Porcine) 5,000 units 02/20/25 21:00 02/21/25 20:35 Heparin Sodium 5,000 Units/Ml Vial SUB-Q 5,000 units Q12HR MOOSE Administration Hydromorphone HCl 0.5 mg 02/19/25 13:22 02/20/25 18:32 Hydromorphone Hcl Inj (*Crx) 2 Mg/Ml Vial IV PUSH 0.5 mg Q4H PRN Administration Pain Rated 7-10 Hydroxyzine HCl 25 mg 02/20/25 09:00 02/21/25 08:43 Hydroxyzine Hcl 25 Mg Tablet PO 25 mg DAILY MOOSE Administration Dextrose 1,000 mls @ 100 mls/hr 02/19/25 22:23 Dextrose 5% 1,000 Ml IVPB PRN PRN Hypoglycemia Protocol Dextrose/Sodium Chloride 1,000 mls @ 100 mls/hr 02/20/25 12:00 02/22/25 06:51 Dextrose 5% Sodium Chloride 0.9% IV CONT 100 mls/hr .Q10H MOOSE Administration Ceftriaxone Sodium 1 gm/ 50 mls @ 100 mls/hr 02/20/25 17:00 02/21/25 16:56 Sodium Chloride IVPB 100 mls/hr Q24H MOOSE Administration Insulin Aspart 2 - 5 units 02/22/25 08:00 Insulin Aspart (*Bkc) 100 Units/Ml SUB-Q TIDWM MOOSE Protocol Ondansetron HCl 4 mg 02/19/25 13:22 02/20/25 19:46 Ondansetron Inj 4 Mg/2 Ml Vial IV PUSH 4 mg Q4H PRN Administration Nausea Pantoprazole Sodium 40 mg 02/21/25 09:00 02/21/25 08:43 Pantoprazole Sodium Iv 40 Mg Vial IV PUSH 40 mg QAM MOOSE Administration Rosuvastatin Calcium 5 mg 02/20/25 21:00 02/21/25 20:37 Rosuvastatin 5 Mg Tablet PO 5 mg HS MOOSE Administration Sertraline HCl 50 mg 02/20/25 09:00 02/21/25 08:44 Sertraline Hcl 50 Mg Tablet PO 50 mg DAILY MOOSE Administration Terbinafine HCl 250 mg 02/20/25 21:00 02/21/25 20:37 Terbinafine Hcl 250 Mg Tablet PO 250 mg HS MOOSE Administration Radiology Results: ITS Impressions Chest X-Ray 02/19/25 12:12 IMPRESSION: No focal infiltrate or effusion. Abdomen/Pelvis CT 02/19/25 14:09 IMPRESSION: Supraumbilical small bowel containing hernia with indeterminate affect on the mesentery and possible compression and distention of a branch of the superior mesenteric vein, as detailed above. Additional findings within the anterior wall of the proximal transverse colon which extends into a additional anterior abdominal wall hernia, for which a possible Cuenca's hernia is suspected. Severe hypovolemia is also noted, as detailed above Thank you for the opportunity to assist in the care of your patient. For questions or concerns regarding this interpretation, please reach out to me directly at [phone]. Labs Labs: Laboratory Results - last 24 hr 02/21/25 02/21/25 02/21/25 11:50 16:52 20:53 WBC RBC Hgb Hct MCV MCH MCHC RDW Plt Count MPV Immature Gran % (Auto) Neut % (Auto) Lymph % (Auto) [place] % (Auto) Eos % (Auto) Baso % (Auto) Lymph # (Auto) [place] # (Auto) Eos # (Auto) Baso # (Auto) Abs Immat Gran (auto) Absolute Neuts (auto) Absolute Nucleated RBC Nucleated RBC % Sodium Potassium Chloride Carbon Dioxide Anion Gap BUN Creatinine Estim Creat Clear Calc Estimated GFR Glucose POC Capillary Glucose 165 H 169 H 151 H Calcium Phosphorus Magnesium Total Bilirubin AST ALT Alkaline Phosphatase Total Protein Albumin Lipase 02/22/25 06:15 WBC 6.2 RBC 4.33 Hgb 11.5 L Hct 36.5 L MCV 84.3 MCH 26.6 MCHC 31.5 L RDW 13.9 Plt Count 302 MPV 9.7 Immature Gran % (Auto) 0.5 Neut % (Auto) 64.3 Lymph % (Auto) 27.2 [place] % (Auto) 5.8 Eos % (Auto) 1.6 Baso % (Auto) 0.6 Lymph # (Auto) 1.70 [place] # (Auto) 0.4 Eos # (Auto) 0.1 Baso # (Auto) 0.0 Abs Immat Gran (auto) 0.03 Absolute Neuts (auto) 4.0 Absolute Nucleated RBC 0.000 Nucleated RBC % 0.0 Sodium 142 Potassium 4.3 Chloride 111 H Carbon Dioxide 23 Anion Gap 8 BUN 16 D Creatinine 1.38 H Estim Creat Clear Calc 46 Estimated GFR 41 L Glucose 152 H POC Capillary Glucose Calcium 8.0 L Phosphorus 3.0 Magnesium 1.3 L Total Bilirubin 0.2 AST 31 ALT 34 Alkaline Phosphatase 67 Total Protein 6.2 L Albumin 3.3 L Lipase 301 H
[2025-02-22] MEDS: SERTRALINE HCL 50 MG TABLET PO (08:43)
[2025-02-22] MEDS: PANTOPRAZOLE SODIUM IV 40 MG VIAL IV PUSH (08:43)
[2025-02-22] MEDS: buPROPion HCL XL (24 HR) 150 MG TABCR PO (08:43)
[2025-02-22] MEDS: MAGNESIUM SULF 2 GM/WATER 50ML 2 GM/50 ML BAG IVPB (11:48)
--- NOTE | 2025-02-22 12:15 | P.PNIM_ITS ---
Progress Note: A&P Assessment and Plan (1) Pancreatitis: Code(s): K85.90 - Acute pancreatitis without necrosis or infection, unspecified Status: Acute (2) Acute renal failure (ARF): Code(s): N17.9 - Acute kidney failure, unspecified Status: Acute (3) Acute dehydration: Code(s): E86.0 - Dehydration Status: Acute Plan 49-year-old female presents the hospital with epigastric pain right-sided chest pain. Patient states the epigastric pain has been going on for about a month however only last few days she has been vomiting and not able to eat or drink. Patient denies alcohol use. Patient denies fevers chills. Patient denies risk factors for HIV or AIDS. In the ED her lab work shows carbon dioxide 15, anion gap 18, BUN of 59, creatinine 4.75, estimated GFR 10, glucose of 119, troponins are negative lipase of 823. CT of the abdomen shows Supraumbilical small bowel containing hernia with indeterminate affect on the mesentery and possible compression and distention of a branch of the superior mesenteric vein, as detailed above. Additional findings within the anterior wall of the proximal transverse colon which extends into a additional anterior abdominal wall hernia, for which a possible Cuenca's hernia is suspected.. 15 mm defect is identified within the supra umbilical fossa through with multiple loops of small bowel project. Additional defects identified cranial to this which contains a small segment of the wall of transverse colon and adjacent mesentery. Proximal dilatation and distal decompression is noted. Air is present within the distal bowel without suspicion of strangulation. Consulted General surgery with regard to these findings possible obstructed hernia. Lactate came back normal. No concern for obstructive hernia. This will be followed up as an outpatient basis. History of GI bleed needing vascular coiling in the past per CT scan noted within the distribution of of branches of left gastric artery. Dehydration IV fluid DRAGAN unknown baseline creatinine admission creatinine of 4.7. No prior labs are available to review. Nephrology has been consulted. No hydronephrosis on CT Trend lipase. CT evaluation of pancreas was limited secondary to lack of IV contrast. Lipase trending down. Type 2 diabetes on Trulicity and metformin at home which are on hold. Continue to monitor Accu-Cheks. SSI for trending up. Currently low. Started on dextrose normal saline. Will stop IV fluid Hypertension lisinopril on hold Anxiety depression on bupropion and sertraline UTI on ceftriaxone Hyperlipidemia on rosuvastatin. CK normal DVT prophylaxis heparin subQ Code status full code Subjective Date/time seen: 02/22/25 12:15 Interval history: No new complaints. No overnight events. Abdominal pain has improved. Tolerating diet. On full liquids. Also had a bowel movement today. Review of Systems Review of Systems: All systems reviewed & are unremarkable except as noted in HPI and below Exam Narrative: General: well appearing, appears stated age. Not in acute distress HEENT: normocephalic, atraumatic. Mucous membranes moist. EOMI, PERRLA Respiratory: clear to auscultation bilaterally. No rales/rhonic/wheezes. Cardiovascular: Regular rate and rhythm, normal S1-S2 upon ascultation. No murmurs, rubs, or clicks. Abdomen: Soft, round, right epigastric mass which is not tender, surgical scar noted supraumbilical No rebound, no guarding. Extremities: No cyanosis, clubbing, or edema present. Pulses are palpable 2/2. Active ROM to all four extremities. Neuro: Alert and orientated x 4. PERRLA. Cranial nerves 2-12 intact without focal deficit. Skin: Warm, dry, and intact, without rash, erythema, or lesion. Psych: pleasant, cooperative, normal speech, normal affect Objective Data Vital Signs Vital Signs: Vital Signs - 24 hr 02/21/25 13:07 02/21/25 14:00 02/21/25 20:50 Temperature 98 F Pulse Rate 74 71 Respiratory Rate 18 20 Blood Pressure 129/70 Pulse Oximetry 98 100 100 Oxygen Delivery Room Air Room Air 02/21/25 20:52 02/21/25 21:15 02/22/25 05:50 Temperature 99.0 F 97.8 F Pulse Rate 71 77 Respiratory Rate 20 20 Blood Pressure 114/72 117/77 Pulse Oximetry 100 100 98 Oxygen Delivery Room Air 02/22/25 08:00 Temperature Pulse Rate Respiratory Rate Blood Pressure Pulse Oximetry Oxygen Delivery Room Air Intake/Output Intake/Output: Intake & Output 02/19/25 02/20/25 02/21/25 02/22/25 23:59 23:59 23:59 23:59 Intake Total 1672.5 2890 1966.7 1075 Balance 1672.5 2890 1966.7 1075 Meds/Results Medications: Active Medications Generic Name Dose Route Start Last Admin Trade Name Freq PRN Reason Stop Dose Admin Acetaminophen 650 mg 02/20/25 02:29 02/20/25 10:46 Acetaminophen 325 Mg Tablet PO 650 mg Q6H PRN Administration Mild Pain (1-3) or Fever Bupropion HCl 150 mg 02/20/25 09:00 02/22/25 08:43 Bupropion Hcl Xl (24 Hr) 150 Mg Tabcr PO 150 mg DAILY MOOSE Administration Dextrose 12.5 gm 02/19/25 22:23 02/20/25 06:10 Dextrose 50% 25 Gm/50 Ml Syringe IV PUSH 12.5 gm PRN PRN Administration Hypoglycemia Protocol Glucagon 1 mg 02/19/25 22:23 Glucagon For Inj 1 Mg Vial IM PRN PRN Hypoglycemia Protocol Glucose 15 gm 02/19/25 22:23 Glucose Oral Gel 15 Gm Of Glucse In 37.5 Gm Tube PO PRN PRN Hypoglycemia Protocol Heparin Sodium (Porcine) 5,000 units 02/20/25 21:00 02/22/25 08:43 Heparin Sodium 5,000 Units/Ml Vial SUB-Q 5,000 units Q12HR MOOSE Administration Hydromorphone HCl 0.5 mg 02/19/25 13:22 02/20/25 18:32 Hydromorphone Hcl Inj (*Crx) 2 Mg/Ml Vial IV PUSH 0.5 mg Q4H PRN Administration Pain Rated 7-10 Hydroxyzine HCl 25 mg 02/20/25 09:00 02/22/25 08:43 Hydroxyzine Hcl 25 Mg Tablet PO 25 mg DAILY MOOSE Administration Dextrose 1,000 mls @ 100 mls/hr 02/19/25 22:23 Dextrose 5% 1,000 Ml IVPB PRN PRN Hypoglycemia Protocol Dextrose/Sodium Chloride 1,000 mls @ 100 mls/hr 02/20/25 12:00 02/22/25 06:51 Dextrose 5% Sodium Chloride 0.9% IV CONT 100 mls/hr .Q10H MOOSE Administration Ceftriaxone Sodium 1 gm/ 50 mls @ 100 mls/hr 02/20/25 17:00 02/21/25 16:56 Sodium Chloride IVPB 100 mls/hr Q24H MOOSE Administration Insulin Aspart 2 - 5 units 02/22/25 08:00 02/22/25 12:14 Insulin Aspart (*Bkc) 100 Units/Ml SUB-Q Not Given [facility] Protocol Ondansetron HCl 4 mg 02/19/25 13:22 02/20/25 19:46 Ondansetron Inj 4 Mg/2 Ml Vial IV PUSH 4 mg Q4H PRN Administration Nausea Pantoprazole Sodium 40 mg 02/21/25 09:00 02/22/25 08:43 Pantoprazole Sodium Iv 40 Mg Vial IV PUSH 40 mg QAM MOOSE Administration Rosuvastatin Calcium 5 mg 02/20/25 21:00 02/21/25 20:37 Rosuvastatin 5 Mg Tablet PO 5 mg HS MOOSE Administration Sertraline HCl 50 mg 02/20/25 09:00 02/22/25 08:43 Sertraline Hcl 50 Mg Tablet PO 50 mg DAILY MOOSE Administration Terbinafine HCl 250 mg 02/20/25 21:00 02/21/25 20:37 Terbinafine Hcl 250 Mg Tablet PO 250 mg HS MOOSE Administration Radiology Results: ITS Impressions Chest X-Ray 02/19/25 12:12 IMPRESSION: No focal infiltrate or effusion. Abdomen/Pelvis CT 02/19/25 14:09 IMPRESSION: Supraumbilical small bowel containing hernia with indeterminate affect on the mesentery and possible compression and distention of a branch of the superior mesenteric vein, as detailed above. Additional findings within the anterior wall of the proximal transverse colon which extends into a additional anterior abdominal wall hernia, for which a possible Cuenca's hernia is suspected. Severe hypovolemia is also noted, as detailed above Thank you for the opportunity to assist in the care of your patient. For questions or concerns regarding this interpretation, please reach out to me directly at [phone]. Labs Labs: Laboratory Results - last 24 hr 02/21/25 02/21/25 02/22/25 16:52 20:53 06:15 WBC 6.2 RBC 4.33 Hgb 11.5 L Hct 36.5 L MCV 84.3 MCH 26.6 MCHC 31.5 L RDW 13.9 Plt Count 302 MPV 9.7 Immature Gran % (Auto) 0.5 Neut % (Auto) 64.3 Lymph % (Auto) 27.2 [place] % (Auto) 5.8 Eos % (Auto) 1.6 Baso % (Auto) 0.6 Lymph # (Auto) 1.70 [place] # (Auto) 0.4 Eos # (Auto) 0.1 Baso # (Auto) 0.0 Abs Immat Gran (auto) 0.03 Absolute Neuts (auto) 4.0 Absolute Nucleated RBC 0.000 Nucleated RBC % 0.0 Sodium 142 Potassium 4.3 Chloride 111 H Carbon Dioxide 23 Anion Gap 8 BUN 16 D Creatinine 1.38 H Estim Creat Clear Calc 46 Estimated GFR 41 L Glucose 152 H POC Capillary Glucose 169 H 151 H Calcium 8.0 L Phosphorus 3.0 Magnesium 1.3 L Total Bilirubin 0.2 AST 31 ALT 34 Alkaline Phosphatase 67 Total Protein 6.2 L Albumin 3.3 L Lipase 301 H 02/22/25 08:12 WBC RBC Hgb Hct MCV MCH MCHC RDW Plt Count MPV Immature Gran % (Auto) Neut % (Auto) Lymph % (Auto) [place] % (Auto) Eos % (Auto) Baso % (Auto) Lymph # (Auto) [place] # (Auto) Eos # (Auto) Baso # (Auto) Abs Immat Gran (auto) Absolute Neuts (auto) Absolute Nucleated RBC Nucleated RBC % Sodium Potassium Chloride Carbon Dioxide Anion Gap BUN Creatinine Estim Creat Clear Calc Estimated GFR Glucose POC Capillary Glucose 162 H Calcium Phosphorus Magnesium Total Bilirubin AST ALT Alkaline Phosphatase Total Protein Albumin Lipase
--- NOTE | 2025-02-22 12:32 | P.PNNP_ITS ---
Progress Note: A&P Assessment and Plan (1) Acute kidney injury: Code(s): N17.9 - Acute kidney failure, unspecified Status: Acute Assessment and Plan: * presumably normal renal function prior to admission * improvement noted with IVF hydration * several issues playing a role: * prerenal factors * ongoing use of LUCIA-I and metformin prior to admission * pancreatitis * other(?) * evaluation to date noted: * CT of A/P with bilateral kidneys are unremarkable, without hydronephrosis or renal calculi. * urine electrolytes non-prerenal * urine eosinophils negative * mild proteinuria * continue to follow trend of labs and UOP (2) Pancreatitis: Code(s): K85.90 - Acute pancreatitis without necrosis or infection, unspecified Status: Acute Assessment and Plan: * suggested by elevated lipase on admission * however, no CT evidence (although lack of IV contrast limits evaluation) * follow clinical exam and trend of lipase * advance diet as tolerated (3) Urinary tract infection: Code(s): N39.0 - Urinary tract infection, site not specified Status: Acute Assessment and Plan: * admission UA suggestive * however, no urine collection done * on empiric antibiotics (4) Incisional hernia: Code(s): K43.2 - Incisional hernia without obstruction or gangrene Status: Acute Assessment and Plan: * Surgery evaluation/recommendations noted * plan outpatient follow-up to discuss surgical options (5) Hypertension: Code(s): I10 - Essential (primary) hypertension Status: Chronic Assessment and Plan: * reasonable control at this time * LUCIA-I on hold due to #1 * follow trend of hemodynamics (6) Diabetes mellitus: Code(s): E11.9 - Type 2 diabetes mellitus without complications Status: Chronic Assessment and Plan: * follow accu-cheks * glycemic control per hospitalist Not opposed to discharge tomorrow from renal perspective if otherwise medical stable and renal function continue to improve. Will continue to follow. L Subjective Date/time seen: 02/22/25 12:32 Interval history: Follow-up for acute kidney injury/acute renal failure. Continue to make slow and steady improvement in general -- tolerating diet without any further abdominal pain; renal function/creatinine continues to slowly improve as well; no events overnight or earlier this morning. Exam 2 Narrative: General: WD/WN female in NAD Heart: normal S1 and S2; no rub Lungs: clear to auscultation Abdomen: soft, nontender, nondistended, positive bowel sounds Extremities: no cyanosis or clubbing; no edema Skin: warm and intact Objective Data Vital Signs Vital Signs: Vital Signs Temp Pulse Resp BP Pulse Ox O2 Del Method 02/22/25 08:00 Room Air 02/22/25 05:50 97.8 F 77 20 117/77 98 02/21/25 21:15 99.0 F 71 20 114/72 100 02/21/25 20:52 100 Room Air 02/21/25 20:50 71 20 100 Room Air Intake/Output Intake/Output: Intake & Output 02/19/25 02/20/25 02/21/25 02/22/25 23:59 23:59 23:59 23:59 Intake Total 1672.5 2890 1966.7 1315 Balance 1672.5 2890 1966.7 1315 Meds/Results Medications: Active Medications Generic Name Dose Route Start Last Admin Trade Name Freq PRN Reason Stop Dose Admin Acetaminophen 650 mg 02/20/25 02:29 02/20/25 10:46 Acetaminophen 325 Mg Tablet PO 650 mg Q6H PRN Administration Mild Pain (1-3) or Fever Bupropion HCl 150 mg 02/20/25 09:00 02/22/25 08:43 Bupropion Hcl Xl (24 Hr) 150 Mg Tabcr PO 150 mg DAILY MOOSE Administration Dextrose 12.5 gm 02/19/25 22:23 02/20/25 06:10 Dextrose 50% 25 Gm/50 Ml Syringe IV PUSH 12.5 gm PRN PRN Administration Hypoglycemia Protocol Glucagon 1 mg 02/19/25 22:23 Glucagon For Inj 1 Mg Vial IM PRN PRN Hypoglycemia Protocol Glucose 15 gm 02/19/25 22:23 Glucose Oral Gel 15 Gm Of Glucse In 37.5 Gm Tube PO PRN PRN Hypoglycemia Protocol Heparin Sodium (Porcine) 5,000 units 02/20/25 21:00 02/22/25 08:43 Heparin Sodium 5,000 Units/Ml Vial SUB-Q 5,000 units Q12HR MOOSE Administration Hydromorphone HCl 0.5 mg 02/19/25 13:22 02/20/25 18:32 Hydromorphone Hcl Inj (*Crx) 2 Mg/Ml Vial IV PUSH 0.5 mg Q4H PRN Administration Pain Rated 7-10 Hydroxyzine HCl 25 mg 02/20/25 09:00 02/22/25 08:43 Hydroxyzine Hcl 25 Mg Tablet PO 25 mg DAILY MOOSE Administration Dextrose 1,000 mls @ 100 mls/hr 02/19/25 22:23 Dextrose 5% 1,000 Ml IVPB PRN PRN Hypoglycemia Protocol Ceftriaxone Sodium 1 gm/ 50 mls @ 100 mls/hr 02/20/25 17:00 02/21/25 16:56 Sodium Chloride IVPB 100 mls/hr Q24H MOOSE Administration Insulin Aspart 2 - 5 units 02/22/25 08:00 02/22/25 12:14 Insulin Aspart (*Bkc) 100 Units/Ml SUB-Q Not Given TIDWM MOOSE Protocol Ondansetron HCl 4 mg 02/19/25 13:22 02/20/25 19:46 Ondansetron Inj 4 Mg/2 Ml Vial IV PUSH 4 mg Q4H PRN Administration Nausea Pantoprazole Sodium 40 mg 02/21/25 09:00 02/22/25 08:43 Pantoprazole Sodium Iv 40 Mg Vial IV PUSH 40 mg QAM MOOSE Administration Rosuvastatin Calcium 5 mg 02/20/25 21:00 02/21/25 20:37 Rosuvastatin 5 Mg Tablet PO 5 mg HS MOOSE Administration Sertraline HCl 50 mg 02/20/25 09:00 02/22/25 08:43 Sertraline Hcl 50 Mg Tablet PO 50 mg DAILY MOOSE Administration Terbinafine HCl 250 mg 02/20/25 21:00 02/21/25 20:37 Terbinafine Hcl 250 Mg Tablet PO 250 mg HS MOOSE Administration Radiology Results: ITS Impressions Chest X-Ray 02/19/25 12:12 IMPRESSION: No focal infiltrate or effusion. Abdomen/Pelvis CT 02/19/25 14:09 IMPRESSION: Supraumbilical small bowel containing hernia with indeterminate affect on the mesentery and possible compression and distention of a branch of the superior mesenteric vein, as detailed above. Additional findings within the anterior wall of the proximal transverse colon which extends into a additional anterior abdominal wall hernia, for which a possible Cuenca's hernia is suspected. Severe hypovolemia is also noted, as detailed above Thank you for the opportunity to assist in the care of your patient. For questions or concerns regarding this interpretation, please reach out to me directly at [phone]. Labs Labs: Laboratory Tests 02/22/25 06:15 02/22/25 06:15 Calcium 8.0 L Phosphorus 3.0 Magnesium 1.3 L Total Bilirubin 0.2 AST 31 ALT 34 Alkaline Phosphatase 67 Total Protein 6.2 L Albumin 3.3 L Lipase 301 H
[2025-02-22 14:00] VITALS: BP 117/71; PULSE 77; RESP 16; TEMP 36.6; O2SAT 100
[2025-02-22] MEDS: cefTRIAXone 1 GM in SODIUM CHLORIDE 0.9% IV 50 ML 100 ML IVPB (17:11)
[2025-02-22] MEDS: ACETAMINOPHEN 325 MG TABLET 650 MG PO (17:14)
[2025-02-22] MEDS: TERBINAFINE HCL 250 MG TABLET PO (20:37)
[2025-02-22] MEDS: ROSUVASTATIN 5 MG TABLET PO (20:37)
[2025-02-22 21:47] VITALS: PULSE 71; RESP 20; O2SAT 97
[2025-02-22 22:00] VITALS: BP 123/75; PULSE 79; RESP 20; TEMP 37.1; O2SAT 98
[2025-02-23 05:59] VITALS: BP 134/83; PULSE 91; RESP 20; TEMP 36.8; O2SAT 99
[2025-02-23 08:11] LABS: Hematocrit 35.8 % (37.0-47.0); Hemoglobin 11.4 g/dL (12.0-15.0); Immature Granulocyte Percent A 0.4 % (0-0.5); Lymphocytes Absolute Auto 1.80 K/mm3 (0.9-3.2); Mean Corpuscular HGB Conc 31.8 g/dl (32-36); Mean Corpuscular Hemoglobin 26.5 pg (26-34); Mean Corpuscular Volume 83.1 fl (80-100); Nucleated Red Blood Cells Absolute Auto 0.000 K/mm3 (0.0-0.012); Nucleated Red Blood Cells Perc 0.0 % (0.0-0.2); Platelet Count Result 310 k/mm3 (150-375); Red Blood Count 4.31 M/mm3 (4.2-5.4); White Blood Count 7.4 K/mm3 (4.5-10.0)
[2025-02-23] MEDS: buPROPion HCL XL (24 HR) 150 MG TABCR PO (08:39)
[2025-02-23] MEDS: PANTOPRAZOLE SODIUM IV 40 MG VIAL IV PUSH (08:40)
[2025-02-23] MEDS: SERTRALINE HCL 50 MG TABLET PO (08:40)
[2025-02-23 08:43] LABS: Alanine Aminotransferase 24 U/L (6-35); Albumin Level 3.2 g/dL (3.5-5.1); Alkaline Phosphatase 69 U/L (38-126); Anion Gap 8 mmol/L (4-12); Aspartate Amino Transferase 18 U/L (14-36); Bilirubin,Total 0.2 mg/dL (0.2-1.3); Blood Urea Nitrogen 10 mg/dL (7-17); Calcium 8.2 mg/dL (8.4-10.2); Carbon Dioxide 21 mmol/L (22-30); Chloride 111 mmol/L (98-107); Estimated CRCL calculation 53 ml/min; Estimated Glomerular Filt Rate 49; Glucose 117 mg/dL (65-110); Magnesium 1.6 mg/dL (1.6-2.3); Potassium 4.4 mmol/L (3.4-5.0); Sodium 140 mmol/L (137-145); Total Protein 6.1 g/dL (6.3-8.2)
--- NOTE | 2025-02-23 11:35 | PM.PNGS ---
Progress Note: A&P Assessment and Plan (1) Pancreatitis: Code(s): K85.90 - Acute pancreatitis without necrosis or infection, unspecified Status: Acute Assessment and Plan: Resolving. No longer having any abdominal pain. Tolerating a diet. Abdominal exam benign. Okay to discharge from a surgical standpoint. (2) Incisional hernia: Code(s): K43.2 - Incisional hernia without obstruction or gangrene Status: Acute Assessment and Plan: Incisional hernias are chronic and asymptomatic. Will have her follow-up as an outpatient with Dr. Mckenzie in a few weeks to discuss options for surgical repair. Recommend to avoid heavy lifting and okay to order an abdominal binder Plan I have discussed the patient's case and plan of care with Dr. Mckenzie. Subjective Subjective Date/Time Seen: 02/23/25 11:35 Patient reports: no new complaints, feels better, flatus and bowel movement Interval history: No acute issues overnight. Denies abdominal pain, nausea, or vomiting. Exam Const: General: comfortable and no acute distress GI: Inspection: non-distended GI Palp: Yes Soft to palpation, No Tenderness to palpation present (GI), No Guarding due to palpation present (GI) and No Rebound tenderness present Auscultation: normal bowel sounds Other: Mid to right upper abdominal incisional hernia with an obvious bulge, partially reducible, nontender and soft, no overlying skin changes Objective Data Vital Signs Vital Signs: Vital Signs - 24 hr 02/22/25 14:00 02/22/25 21:47 02/22/25 22:00 Temperature 97.9 F 98.8 F Pulse Rate 77 71 79 Respiratory Rate 16 20 20 Blood Pressure 117/71 123/75 Pulse Oximetry 100 97 98 Oxygen Delivery Room Air Fraction of Inspired Oxygen 02/23/25 05:59 Temperature 98.3 F Pulse Rate 91 Respiratory Rate 20 Blood Pressure 134/83 Pulse Oximetry 99 Oxygen Delivery Fraction of Inspired Oxygen Intake/Output Intake/Output: Intake & Output 02/20/25 02/21/25 02/22/25 02/23/25 23:59 23:59 23:59 23:59 Intake Total 2890 2015.7 1555 390 Balance 2890 7 1555 390 Meds/Results Medications: Active Medications Generic Name Dose Route Start Last Admin Trade Name Freq PRN Reason Stop Dose Admin Acetaminophen 650 mg 02/20/25 02:29 02/22/25 17:14 Acetaminophen 325 Mg Tablet PO 650 mg Q6H PRN Administration Mild Pain (1-3) or Fever Bupropion HCl 150 mg 02/20/25 09:00 02/23/25 08:39 Bupropion Hcl Xl (24 Hr) 150 Mg Tabcr PO 150 mg DAILY MOOSE Administration Dextrose 12.5 gm 02/19/25 22:23 02/20/25 06:10 Dextrose 50% 25 Gm/50 Ml Syringe IV PUSH 12.5 gm PRN PRN Administration Hypoglycemia Protocol Glucagon 1 mg 02/19/25 22:23 Glucagon For Inj 1 Mg Vial IM PRN PRN Hypoglycemia Protocol Glucose 15 gm 02/19/25 22:23 Glucose Oral Gel 15 Gm Of Glucse In 37.5 Gm Tube PO PRN PRN Hypoglycemia Protocol Heparin Sodium (Porcine) 5,000 units 02/20/25 21:00 02/23/25 08:40 Heparin Sodium 5,000 Units/Ml Vial SUB-Q 5,000 units Q12HR MOOSE Administration Hydromorphone HCl 0.5 mg 02/19/25 13:22 02/20/25 18:32 Hydromorphone Hcl Inj (*Crx) 2 Mg/Ml Vial IV PUSH 0.5 mg Q4H PRN Administration Pain Rated 7-10 Hydroxyzine HCl 25 mg 02/20/25 09:00 02/23/25 08:39 Hydroxyzine Hcl 25 Mg Tablet PO 25 mg DAILY MOOSE Administration Dextrose 1,000 mls @ 100 mls/hr 02/19/25 22:23 Dextrose 5% 1,000 Ml IVPB PRN PRN Hypoglycemia Protocol Ceftriaxone Sodium 1 gm/ 50 mls @ 100 mls/hr 02/20/25 17:00 02/22/25 17:11 Sodium Chloride IVPB 100 mls/hr Q24H MOOSE Administration Insulin Aspart 2 - 5 units 02/22/25 08:00 02/23/25 08:31 Insulin Aspart (*Bkc) 100 Units/Ml SUB-Q Not Given TIDWM MOOSE Protocol Ondansetron HCl 4 mg 02/19/25 13:22 02/20/25 19:46 Ondansetron Inj 4 Mg/2 Ml Vial IV PUSH 4 mg Q4H PRN Administration Nausea Pantoprazole Sodium 40 mg 02/21/25 09:00 02/23/25 08:40 Pantoprazole Sodium Iv 40 Mg Vial IV PUSH 40 mg QAM MOOSE Administration Rosuvastatin Calcium 5 mg 02/20/25 21:00 02/22/25 20:37 Rosuvastatin 5 Mg Tablet PO 5 mg HS MOOSE Administration Sertraline HCl 50 mg 02/20/25 09:00 02/23/25 08:40 Sertraline Hcl 50 Mg Tablet PO 50 mg DAILY MOOSE Administration Terbinafine HCl 250 mg 02/20/25 21:00 02/22/25 20:37 Terbinafine Hcl 250 Mg Tablet PO 250 mg HS MOOSE Administration Radiology Results: ITS Impressions Chest X-Ray 02/19/25 12:12 IMPRESSION: No focal infiltrate or effusion. Abdomen/Pelvis CT 02/19/25 14:09 IMPRESSION: Supraumbilical small bowel containing hernia with indeterminate affect on the mesentery and possible compression and distention of a branch of the superior mesenteric vein, as detailed above. Additional findings within the anterior wall of the proximal transverse colon which extends into a additional anterior abdominal wall hernia, for which a possible Cuenca's hernia is suspected. Severe hypovolemia is also noted, as detailed above Thank you for the opportunity to assist in the care of your patient. For questions or concerns regarding this interpretation, please reach out to me directly at [phone]. Labs Labs: Laboratory Results - last 24 hr 02/22/25 02/22/25 02/22/25 12:03 16:32 21:38 WBC RBC Hgb Hct MCV MCH MCHC RDW Plt Count MPV Immature Gran % (Auto) Neut % (Auto) Lymph % (Auto) [place] % (Auto) Eos % (Auto) Baso % (Auto) Lymph # (Auto) [place] # (Auto) Eos # (Auto) Baso # (Auto) Abs Immat Gran (auto) Absolute Neuts (auto) Absolute Nucleated RBC Nucleated RBC % Sodium Potassium Chloride Carbon Dioxide Anion Gap BUN Creatinine Estim Creat Clear Calc Estimated GFR Glucose POC Capillary Glucose 166 H 120 H 137 H Calcium Magnesium Total Bilirubin AST ALT Alkaline Phosphatase Total Protein Albumin 02/23/25 02/23/25 07:23 07:49 WBC 7.4 RBC 4.31 Hgb 11.4 L Hct 35.8 L MCV 83.1 MCH 26.5 MCHC 31.8 L RDW 13.7 Plt Count 310 MPV 9.9 Immature Gran % (Auto) 0.4 Neut % (Auto) 67.5 Lymph % (Auto) 24.3 [place] % (Auto) 5.5 Eos % (Auto) 1.8 Baso % (Auto) 0.5 Lymph # (Auto) 1.80 [place] # (Auto) 0.4 Eos # (Auto) 0.1 Baso # (Auto) 0.0 Abs Immat Gran (auto) 0.03 Absolute Neuts (auto) 5.0 Absolute Nucleated RBC 0.000 Nucleated RBC % 0.0 Sodium 140 Potassium 4.4 Chloride 111 H Carbon Dioxide 21 L Anion Gap 8 BUN 10 D Creatinine 1.19 H Estim Creat Clear Calc 53 Estimated GFR 49 L Glucose 117 H POC Capillary Glucose 127 H Calcium 8.2 L Magnesium 1.6 Total Bilirubin 0.2 AST 18 ALT 24 Alkaline Phosphatase 69 Total Protein 6.1 L Albumin 3.2 L
--- NOTE | 2025-02-23 12:22 | P.DS_ITS ---
DS: Admitting Diagnosis Discharge Date 02/23/2025 Admitting Diagnosis Abdominal pain DS: Discharge Diagnosis Discharge Diagnosis (1) Pancreatitis: Code(s): K85.90 - Acute pancreatitis without necrosis or infection, unspecified Status: Acute (2) Acute renal failure (ARF): Code(s): N17.9 - Acute kidney failure, unspecified Status: Acute (3) Acute dehydration: Code(s): E86.0 - Dehydration Status: Acute DS: Summary Hospital Course Hospital Course: 49-year-old female presents the hospital with epigastric pain right-sided chest pain. Patient states the epigastric pain has been going on for about a month however only last few days she has been vomiting and not able to eat or drink. Patient denies alcohol use. Patient denies fevers chills. Patient denies risk factors for HIV or AIDS. In the ED her lab work shows carbon dioxide 15, anion gap 18, BUN of 59, creatinine 4.75, estimated GFR 10, glucose of 119, troponins are negative lipase of 823. CT of the abdomen shows Supraumbilical small bowel containing hernia with indeterminate affect on the mesentery and possible compression and distention of a branch of the superior mesenteric vein, as detailed above. Additional findings within the anterior wall of the proximal transverse colon which extends into a additional anterior abdominal wall hernia, for which a possible Cuenca's hernia is suspected.. 15 mm defect is identified within the supra umbilical fossa through with multiple loops of small bowel project. Jeison tional defects identified cranial to this which contains a small segment of the wall of transverse colon and adjacent mesentery. Proximal dilatation and distal decompression is noted. Air is present within the distal bowel without suspicion of strangulation. Consulted General surgery with regard to these findings possible obstructed hernia. Lactate came back normal. No concern for obstructive hernia. This will be followed up as an outpatient basis. History of GI bleed needing vascular coiling in the past per CT scan noted within the distribution of of branches of left gastric artery. Dehydration IV fluid DRAGAN unknown baseline creatinine admission creatinine of 4.7. No prior labs are available to review. Nephrology has been consulted. No hydronephrosis on CT. DRAGAN resolved by the time of discharge. Trend lipase. CT evaluation of pancreas was limited secondary to lack of IV contrast. Lipase trending down. Type 2 diabetes on Trulicity and metformin at home which are on hold. Continue to monitor Accu-Cheks. SSI for trending up. Currently low. Started on dextrose normal saline. Will stop IV fluid as improving. Trulicity discontinue at discharge due to pancreatitis. Can resume metformin Hypertension lisinopril on hold Anxiety depression on bupropion and sertraline UTI on ceftriaxone Hyperlipidemia on rosuvastatin. CK normal DVT prophylaxis heparin subQ Code status full code Time Spent with Patient Time attestation: Total time spent providing and/or coordinating discharge services: 35 minutes Exam Narrative: General: well appearing, appears stated age. Not in acute distress HEENT: normocephalic, atraumatic. Mucous membranes moist. EOMI, PERRLA Respiratory: clear to auscultation bilaterally. No rales/rhonic/wheezes. Cardiovascular: Regular rate and rhythm, normal S1-S2 upon ascultation. No murmurs, rubs, or clicks. Abdomen: Soft, round, right epigastric mass which is not tender, surgical scar noted supraumbilical No rebound, no guarding. Extremities: No cyanosis, clubbing, or edema present. Pulses are palpable 2/2. Active ROM to all four extremities. Neuro: Alert and orientated x 4. PERRLA. Cranial nerves 2-12 intact without focal deficit. Skin: Warm, dry, and intact, without rash, erythema, or lesion. Psych: pleasant, cooperative, normal speech, normal affect DS: Data Data Completed and Pending Labs on day of discharge: Labs from last 24 hours 02/23/25 02/23/25 02/23/25 11:22 07:49 07:23 WBC 7.4 RBC 4.31 Hgb 11.4 L Hct 35.8 L MCV 83.1 MCH 26.5 MCHC 31.8 L RDW 13.7 Plt Count 310 MPV 9.9 Immature Gran % (Auto) 0.4 Neut % (Auto) 67.5 Lymph % (Auto) 24.3 [place] % (Auto) 5.5 Eos % (Auto) 1.8 Baso % (Auto) 0.5 Lymph # (Auto) 1.80 [place] # (Auto) 0.4 Eos # (Auto) 0.1 Baso # (Auto) 0.0 Abs Immat Gran (auto) 0.03 Absolute Neuts (auto) 5.0 Absolute Nucleated RBC 0.000 Nucleated RBC % 0.0 Sodium 140 Potassium 4.4 Chloride 111 H Carbon Dioxide 21 L Anion Gap 8 BUN 10 D Creatinine 1.19 H Estim Creat Clear Calc 53 Estimated GFR 49 L Glucose 117 H POC Capillary Glucose 130 H 127 H Calcium 8.2 L Magnesium 1.6 Total Bilirubin 0.2 AST 18 ALT 24 Alkaline Phosphatase 69 Total Protein 6.1 L Albumin 3.2 L 02/22/25 02/22/25 21:38 16:32 WBC RBC Hgb Hct MCV MCH MCHC RDW Plt Count MPV Immature Gran % (Auto) Neut % (Auto) Lymph % (Auto) [place] % (Auto) Eos % (Auto) Baso % (Auto) Lymph # (Auto) [place] # (Auto) Eos # (Auto) Baso # (Auto) Abs Immat Gran (auto) Absolute Neuts (auto) Absolute Nucleated RBC Nucleated RBC % Sodium Potassium Chloride Carbon Dioxide Anion Gap BUN Creatinine Estim Creat Clear Calc Estimated GFR Glucose POC Capillary Glucose 137 H 120 H Calcium Magnesium Total Bilirubin AST ALT Alkaline Phosphatase Total Protein Albumin Imaging Radiologist's impression: ITS Impressions Chest X-Ray 02/19/25 12:12 IMPRESSION: No focal infiltrate or effusion. Abdomen/Pelvis CT 02/19/25 14:09 IMPRESSION: Supraumbilical small bowel containing hernia with indeterminate affect on the mesentery and possible compression and distention of a branch of the superior mesenteric vein, as detailed above. Additional findings within the anterior wall of the proximal transverse colon which extends into a additional anterior abdominal wall hernia, for which a possible Cuenca's hernia is suspected. Severe hypovolemia is also noted, as detailed above Thank you for the opportunity to assist in the care of your patient. For questions or concerns regarding this interpretation, please reach out to me directly at [phone]. Discharge Plan Discharge Attending physician on discharge: Reji Bahena Consulting providers: Archie Tovar Pei Chang Discharging Clinician: Reji Bahena Anticipated Discharge Date/Time: 02/23/25 12:24 Patient Disposition: Home Activity: as tolerated Diet: as tolerated and diabetic Discharge Instructions: * Call to schedule an appointment with Dr. Mckenzie in our office in 2 weeks to discuss hernia repair options. [phone] * Avoid any heavy lifting more than 20 lbs or straining. * Okay to wear an abdominal binder with activity * bp medication lisinopril on hold due to kidney problem. resume after discsusion with pcp or discuss another medication * continue to montior bp at home. * trulicity discontinued due to pancreatitis. discuss with your PCP Patient Instructions: Antibiotic Form Patient Language: Latvian Stand Alone Forms: General Discharge Information Follow-up/Referrals: Elysia Mckenzie MD [Physician] - 2 Weeks Elmer,ELADIO Gutierrez [Primary Care Provider] - 1 Week Discharge Medications: Continued bupropion HCl 150 mg tablet extended release 24 hr 150 mg PO DAILY hydroxyzine HCl 25 mg tablet 25 mg PO DAILY metformin 1,000 mg tablet 1,000 mg PO BID rosuvastatin 5 mg tablet 5 mg PO HS sertraline 50 mg tablet 50 mg PO DAILY terbinafine HCl 250 mg tablet 250 mg PO HS omeprazole magnesium [Prilosec OTC] 20 mg tablet,delayed release (DR/EC) 40 mg PO DAILY Discontinued Trulicity 0.75 mg/0.5 mL pen injector 1.5 mg SUBCUT WEEKLY Patient Comments: takes on Sunday Rx Instructions: give on Sunday Trulicity 1.5 mg/0.5 mL pen injector 1.5 mg SUBCUT WEEKLY Rx Instructions: takes on Sunday lisinopril 20 mg tablet 20 mg PO HS Date of admission: 02/19/25 13:22 Primary Care Provider: ElmerSkinny Admitting Provider: Pamela Vega Attending physician on admission: Pamela Vega Condition: Improved
== END 2025-02-23 13:26 | disposition home or self-care (01) | DRG 282 ==
LOC: ANHED 13:20 → ANH3MEDSUR 14:21
PROVIDERS: Internal Medicine Nephrology; Nurse Practitioner Gerontology; Admitting Provider Internal Medicine; Emergency Provider Emergency Medicine; PCP Physician Assistant Medical; Visit Provider Internal Medicine
DX: K85.90 Acute pancreatitis without necrosis or infection, unspecified (principal); N17.9 Acute kidney failure, unspecified; N39.0 Urinary tract infection, site not specified; K43.2 Incisional hernia without obstruction or gangrene; E86.0 Dehydration; I10 Essential (primary) hypertension; F41.8 Other specified anxiety disorders; E78.5 Hyperlipidemia, unspecified; E11.9 Type 2 diabetes mellitus without complications
CPT/HCPCS: 36415; 71046; 74176; 80048; 80053; 80069; 81001; 81050; 82570; 82948; 83605; 83690; 83735; 84100; 84156; 84300; 84484; 84540; 85025; 85610; 85730; 85999; 93005; 96374; 96375; 99285; A9270; J0696; J1171; J1644; J2405; J2470; J3475; J7030; J7042; J7120

== ENCOUNTER 2025-04-16 09:42 | Outpatient (CLI) | payer OTHER, SELFPAY | END 2025-04-16 09:43 | disposition home or self-care (01) | PROVIDERS: PCP Physician Assistant Medical; Visit Provider Anesthesiology | DX: K46.0 Unspecified abdominal hernia with obstruction, without gangrene (principal) | CPT/HCPCS: 36415; 86850; 86900; 86901 ==

== ENCOUNTER → 2025-04-23 00:10 | Day surgery (SDC) | payer OTHER, SELFPAY ==
--- NOTE | 2025-04-15 17:02 | PC.NURSE ---
Report to the Outpatient Waiting Room, entrance under the green pavilion located off [facility], at time 0600 on date 04/23/25. Planned Procedure Time: 0730.? Time changes happen often and if your time is changed the preop area will call you the afternoon before. - You and your visitor will be asked to self-screen and do not enter if you have any COVID symptoms. Please call surgeon if you need to reschedule. - A mask is optional within the hospital at this time. Patients may have clear liquids (water, carbonated beverages, clear teas, apple juice) until 3 hours prior to surgery with a maximum of 20 ounces. 0430 - No food from midnight until time of surgery and no smoking, or chewing tobacco (or any form of nicotine). No chewing gum, candy or mints. - Infants may have breast milk until 4 hours before surgery, infant formula 6 hours prior to surgery. - Children will be allowed to drink immediately following surgery.? If applicable, please bring a bottle or sippy cup to assist with drinking. Juice, water, soda, and popsicles are readily available.? For infants on formula, please bring formula the day of surgery.? Pacifiers are allowed. Take only the following medications with a SIP of water on the morning of surgery: ATENOLOL, BUPROPION, SERTRALINE DO NOT STOP ANY OF YOUR OTHER PRESCRIPTION MEDICATIONS PRIOR TO SURGERY EXCEPT THE FOLLOWING Hold all vitamins and supplements for 3 days per anesthesiologist. Medications to discontinue per physician N/A Date to take last dose N/A Please no make-up, nail turkish, hairspray, perfume, deodorant, or body powder the day of surgery.? No jewelry (including any body piercings) or valuables the day of surgery, leave them at home.? Please take a shower or bath the night before, or the morning of, surgery with an antibacterial soap.? Wear comfortable, loose fitting clothing.? Children are encouraged to wear pajamas. - Jewelry must be removed prior to entering the operating room.? Rings and piercings that are not removed may be cut off. - The hospital will not accept responsibility for valuables.? - Please leave all valuables, including medications, at home the day of surgery. If you are going home after surgery, a licensed driver courier must drive you home.? - NO public transportation without another adult if you receive anesthesia. - We recommend that an adult stay with you for 24 hours following discharge. - We also recommend that you do not drive, make important decision, drink alcoholic beverages, or take any drugs that were not prescribed by your health care provider for at least 24 hours after your discharge time. For Pediatric surgeries, we recommend two adults accompany the child home. Follow any additional instructions given to you from your surgeon. Telephone instructions given to PATIENT- KARSTEN MITCHELL and asked if any additional questions and then verbalized understanding. Patient advised to call surgeon office or pre surgery nurse liaison [phone] if any additional questions.
[2025-04-15 17:27] VITALS: BMI 29.0
[2025-04-23 06:13] VITALS: BP 130/72; PULSE 76; RESP 16; TEMP 36.2; O2SAT 100
[2025-04-23] MEDS: LACTATED RINGERS 1,000 ML 30 ML IV CONT (06:20)
[2025-04-23] MEDS: ACETAMINOPHEN 500 MG TABLET 1000 MG PO (06:30)
[2025-04-23] MEDS: KETOROLAC 15 MG/ML VIAL (*BKC) IV PUSH (06:30)
[2025-04-23 07:07] LABS: Beta HCG Quantitative 3.43 mIU/ML
[2025-04-23 07:13] LABS: BEDSIDEPREGUCG Negative (Negative)
== END | disposition home or self-care (01) ==
PROVIDERS: Anesthesiology; PCP Physician Assistant Medical; Visit Provider Surgery
DX: K43.0 Incisional hernia with obstruction, without gangrene (principal); B37.2 Candidiasis of skin and nail
CPT/HCPCS: 36415; 82948; 84702; 99214; A9270; G0463; J1171; J1885; J2250; J3010; J7030; J7120

== ENCOUNTER 2025-05-20 15:09 | Outpatient (CLI) | payer OTHER, SELFPAY ==
[2025-05-20 15:46] LABS: Anion Gap 13 mmol/L (4-12); Blood Urea Nitrogen 26 mg/dL (7-17); Calcium 9.1 mg/dL (8.4-10.2); Carbon Dioxide 24 mmol/L (22-30); Chloride 104 mmol/L (98-107); Estimated Glomerular Filt Rate > 60; Glucose 107 mg/dL (65-110); Potassium 4.6 mmol/L (3.4-5.0); Sodium 141 mmol/L (137-145)
== END 2025-05-20 15:10 | disposition home or self-care (01) ==
LOC: ANHLAB 15:10
PROVIDERS: PCP Physician Assistant Medical; Visit Provider Anesthesiology
DX: K43.2 Incisional hernia without obstruction or gangrene (principal); E11.9 Type 2 diabetes mellitus without complications
CPT/HCPCS: 36415; 80048; 86850; 86900; 86901

== ENCOUNTER 2025-05-28 00:14 | Day surgery (SDC) | payer OTHER, SELFPAY ==
[2025-05-20 13:43] VITALS: BMI 29.4
--- NOTE | 2025-05-20 14:51 | PC.NURSE ---
[facility] has started construction of its new state of the art ER which will open Spring 2026. With this, we anticipate parking may be a challenge for some our surgical patients and families. Parking spaces are limited but are available for all Surgical, obstetrics, and ER patients sharing this lot. If you arrive and find you are having a hard time finding a parking space, please note that we understand the challenges, please drive around the hospital and park near Hospital Entrance 1. When you enter this entrance, you can ask a volunteer to direct or take you back to the surgical waiting area to check in. We appreciate everyone?s understanding of these expected challenges while we build for your future. Report to the Outpatient Waiting Room, entrance under the green pavilion located off [address], at time _11:00AM on date 05/28/25 . Planned Procedure Time: _1:00PM .? Time changes happen often and if your time is changed the preop area will call you the afternoon before. - You and your visitor will be asked to self-screen and do not enter if you have any COVID symptoms. Please call surgeon if you need to reschedule. - A mask is optional within the hospital at this time. Patients may have clear liquids (water, carbonated beverages, clear teas, apple juice) until 3 hours prior to surgery with a maximum of 20 ounces. - No food from midnight until time of surgery and no smoking, or chewing tobacco (or any form of nicotine). No chewing gum, candy or mints. Take only the following medications with a SIP of water on the morning of surgery: _HYDROXYZINE, BUSPIRONE, ATENOLOL, SERTRALINE DO NOT STOP ANY OF YOUR OTHER PRESCRIPTION MEDICATIONS PRIOR TO SURGERY EXCEPT THE FOLLOWING Hold all vitamins and supplements for 3 days per anesthesiologist. Medications to discontinue per physician N/A Date to take last dose N/A Please no make-up, nail pashto, hairspray, perfume, deodorant, or body powder the day of surgery.? No jewelry (including any body piercings) or valuables the day of surgery, leave them at home.? Please take a shower or bath the night before, or the morning of, surgery with an antibacterial soap.? Wear comfortable, loose fitting clothing.? Please bring your overnight bag for admission post op. - Jewelry must be removed prior to entering the operating room.? Rings and piercings that are not removed may be cut off. - The hospital will not accept responsibility for valuables.? - Please leave all valuables, including medications, at home the day of surgery. If you are going home after surgery, a licensed regional company truck driver must drive you home.? - NO public transportation without another adult if you receive anesthesia. - We recommend that an adult stay with you for 24 hours following discharge. - We also recommend that you do not drive, make important decision, drink alcoholic beverages, or take any drugs that were not prescribed by your health care provider for at least 24 hours after your discharge time. Follow any additional instructions given to you from your surgeon. Telephone instructions given to Andrae and asked if any additional questions and then verbalized understanding. Patient advised to call surgeon office or pre surgery nurse liaison [phone] if any additional questions.
[2025-05-28] VITALS (9 sets, daily range): BP systolic 122–172; BP diastolic 44–85; PULSE 72–96; RESP 12–18; TEMP 36.4–37.2; O2SAT 97–100; BMI 29.0
--- OUTSIDE RECORDS SUMMARY | 2025-05-28 00:19 | XMS_ITS | Data Portability ---
Author Organization [facility] Address [address] [place] [address] Care Team Providers Care Sanitation Superintendent Name Role Phone RHODA CRISTOBAL Primary Care Provider [phone] Assessment No assessment recorded. Plan of Treatment Reminders Order Date Submit Date Provider Last Modified By Organization Details Last Modified Time Details Appointments ANY 15 2025 09:45A M RHODA CRISTOBAL PA-C Not available Not available Not available Lab lipid panel, serum 2024 025 MARIB[facility], [address], [place], [address], 05/27/2025 06:17:58 HbA1c (hemoglob in A1c), blood 2024 025 In-Office Order, Internal Use Only DO Not Attach Compendium DO Not Attach Compendium, Do Not Delete/merge, [id number] 05/26/2025 10:43:59 albumin/c reatinine , mass ratio, urine 2024 MARIBELL [facility], [address], [place], [address], 05/27/2025 13:12:14 CMP, serum or plasma 2024 025 MARIBELL [facility], [address], [place], [address], 05/27/2025 06:17:59 lipase, serum or plasma 2024 025 [facility], [address], [place], [address], 05/27/2025 13:12:14 lipid panel, serum 2024 025 [facility], [address], [place], [address], 02/26/2025 06:17:56 HbA1c (hemoglob in A1c), blood 2024 025 [id number] In-Office Order, Internal Use Only DO Not Attach Compendium DO Not Attach Compendium, Do Not Delete/merge, [id number] 02/25/2025 11:21:49 albumin/c reatinine , mass ratio, urine 2024 025 [facility], [address], [place], [address], 02/26/2025 15:11:40 CMP, serum or plasma 2024 025 [facility], [address], [place], [address], 02/26/2025 06:17:56 lipase, serum or plasma 2024 025 [facility], [address], [place], [address], 02/26/2025 15:11:41 Referral None recorded. Procedures None recorded. Surgeries None recorded. Imaging None recorded. Medication Orders metformin 1,000 mg tablet 2024 [facility], [address] [place], [address], 05/26/2025 10:44:17 rosuvasta tin 5 mg tablet 2024 025 [facility], [address] [place], [address], 05/26/2025 10:44:19 atenolol 25 mg tablet 2024 025 [place] [address], [address] [place] [address], [address], 05/26/2025 10:44:15 atenolol 25 mg tablet 2024 025 [facility], [address] [place] [address], [address], 04/08/2025 10:38:50 metformin 1,000 mg tablet 2024 025 [place] [address], [address] [place] [address], [address], 02/25/2025 11:21:57 atenolol 25 mg tablet 2024 025 [place] [address], [address] [place] [address], [address], 02/25/2025 11:21:55 lisinopri l 20 mg tablet 2024 025 [place] [address], [address] [place] [address], [address], 02/25/2025 11:04:10 lisinopri l 20 mg tablet 2024 025 [email or web address] [place] [address], [address] [place] [address], [address], 02/25/2025 11:04:00 Patient TargetsNo targets recorded. Patient Instructions Encounter Date Encounter Id Patient Instructions Last Modified By Organization Details Last Modified Time 10/23/2024 [id number] A healthy lifestyle: care instructions Not available 10/23/2024 09:04:33 learning about high blood pressure [email or web address] Not available 10/23/2024 09:04:33 dash diet: care instructions [email or web address] Not available 10/23/2024 09:04:33 12/03/2024 [id number] A healthy lifestyle: care instructions [email or web address] Not available 12/03/2024 09:24:56 learning about high blood pressure [email or web address] Not available 12/03/2024 09:23:40 02/25/2025 [id number] learning about type 2 diabetes [email or web address] Not available 02/25/2025 11:21:49 type 2 diabetes: care instructions [email or web address] Not available 02/25/2025 11:21:49 acute kidney injury: care instructions Not available 02/25/2025 11:21:49 A healthy lifestyle: care instructions [email or web address] Not available 02/25/2025 11:21:50 learning about high blood pressure [email or web address] Not available 02/25/2025 11:21:50 04/08/2025 [id number] A healthy lifestyle: care instructions [email or web address] Not available 04/08/2025 10:38:36 05/26/2025 [id number] A healthy lifestyle: care instructions [email or web address] Not available 05/26/2025 10:44:00 learning about type 2 diabetes [email or web address] Not available 05/26/2025 10:44:00 type 2 diabetes: care instructions [email or web address] Not available 05/26/2025 10:43:59 acute kidney injury: care instructions [email or web address] Not available 05/26/2025 10:44:00 A healthy lifestyle: care instructions [email or web address] Not available 05/26/2025 10:44:00 learning about high blood pressure [email or web address] Not available 05/26/2025 10:44:00 Reason for Referral None Reported. Results Created Date Observation Date Name Description Value Unit Range Abnormal Flag Note LastModifiedBy Organization Detail LastModifiedTime 02/26/2002/26/2025 LIPID PANEL cholesterol, total 135 mg/dL 100-19 9 Not Available [facility] ([facility]) [address] [facility], [place], [address], 02/26/2025 06:17:56 02/26/2002/26/2025 LIPID PANEL triglyceride s 171 mg/dL 0-149 above high normal Not Available [facility] ([facility]) [address] [facility], [place], [address], 02/26/2025 06:17:56 02/26/20 25 02/26/2025 LIPID PANEL HDL cholesterol 52 mg/dL >39 Not Available [facility]) [address] [place], [address], 02/26/2025 06:17:56 02/26/20 25 02/26/2025 LIPID PANEL VLDL cholesterol donell 28 mg/dL 5-40 Not Available [facility] ([facility]) [address] [place], [address], 02/26/2025 06:17:56 02/26/20 25 02/26/2025 LIPID PANEL LDL chol calc ([facility]) 55 mg/dL 0-99 Not Available [facility] ([facility]) [address] [place], [address], 02/26/2025 06:17:56 02/26/20 25 02/26/2025 COMP. METAB OLIC PANEL (14) glucose 117 mg/dL 70-99 above high normal Not Available [facility] ([facility]) [address] [place], [address], 02/26/2025 06:17:56 02/26/20 25 02/26/2025 COMP. METAB OLIC PANEL (14) BUN 6 mg/dL 6-24 Not Available [facility] ([facility]) [address] [place], [address], 02/26/2025 06:17:56 02/26/20 25 02/26/2025 COMP. METAB OLIC PANEL (14) creatinine 1.14 mg/dL 0.57-1 .00 above high normal Not Available [facility] ([facility]) [address] [place], [address], 02/26/2025 06:17:56 02/26/20 25 02/26/2025 COMP. METAB OLIC PANEL (14) eGFR 60 mL/mi n/1.7 3 >59 Not Available [facility] ([facility]) [address], [place], [address], 02/26/2025 06:17:56 02/26/20 25 02/26/2025 COMP. METAB OLIC PANEL (14) BUN/creatini ne ratio 5 9-23 below low normal Not Available [facility] ([facility]) [address] [place], [address], 02/26/2025 06:17:56 02/26/20 25 02/26/2025 COMP. METAB OLIC PANEL (14) sodium 142 mmol/ L 134-14 4 Not Available [facility] ([facility]) [address] [place], [address], 02/26/2025 06:17:56 02/26/20 25 02/26/2025 COMP. METAB OLIC PANEL (14) potassium 4.7 mmol/ L 3.5-5. 2 Not Available [facility] ([facility]) [address] [place], [address], 02/26/2025 06:17:56 02/26/20 25 02/26/2025 COMP. METAB OLIC PANEL (14) chloride 106 mmol/ L 96-106 Not Available [facility] ([facility]) [address] [place] [place], [address], 02/26/2025 06:17:56 02/26/20 25 02/26/2025 COMP. METAB OLIC PANEL (14) carbon dioxide, total 20 mmol/ L 20-29 Not Available [facility] ([facility]) [address] [place] [place], [address], 02/26/2025 06:17:56 02/26/20 25 02/26/2025 COMP. METAB OLIC PANEL (14) calcium 9.4 mg/dL 8.7-10 .2 Not Available [facility] ([place] [facility]) [address] [facility] [place], [address], 02/26/2025 06:17:56 02/26/20 25 02/26/2025 COMP. METAB OLIC PANEL (14) protein, total 6.5 g/dL 6.0-8. 5 Not Available [facility] ([facility]) [address], [place], [address], 02/26/2025 06:17:56 02/26/20 25 02/26/2025 COMP. METAB OLIC PANEL (14) albumin 4.1 g/dL 3.9-4. 9 Not Available [facility] ([facility]) [address] [facility], [place], [address], 02/26/2025 06:17:56 02/26/20 25 02/26/2025 COMP. METAB OLIC PANEL (14) globulin, total 2.4 g/dL 1.5-4. 5 Not Available [facility] ([facility]) [address] [facility], [place], [address], 02/26/2025 06:17:56 02/26/20 25 02/26/2025 COMP. METAB OLIC PANEL (14) bilirubin, total 0.2 mg/dL 0.0-1. 2 Not Available [facility] ([facility]) [address] [facility], [place], [address], 02/26/2025 06:17:56 02/26/20 25 02/26/2025 COMP. METAB OLIC PANEL (14) alkaline phosphatase 85 IU/L 44-121 Not Available [facility] ([facility]) [address] [facility], [place], [address], 02/26/2025 06:17:56 02/26/20 25 02/26/2025 COMP. METAB OLIC PANEL (14) AST (SGOT) 8 IU/L 0-40 Not Available [facility] ([facility]) [address] [facility], [place], [address], 02/26/2025 06:17:56 07/16/20 25 02/26/2025 COMP. METAB OLIC PANEL (14) ALT (SGPT) 12 IU/L 0-32 Not Available [facility] ([facility]) [address] [facility], [place], [address], 02/26/2025 06:17:56 02/26/20 25 02/26/2025 ALBUM IN/CR EATIN INE RATIO ,URIN E creatinine, urine 161.1 mg/dL notest ab. Not Available [facility] ([facility]) [address] [place], [address], 02/26/2025 15:11:40 02/26/20 25 02/26/2025 ALBUM IN/CR EATIN INE RATIO ,URIN E albumin, urine 15.9 ug/mL notest ab. Not Available [facility] ([facility]) [address] [place], [address], 02/26/2025 15:11:40 02/26/20 25 02/26/2025 ALBUM IN/CR EATIN INE RATIO ,URIN E alb/creat ratio 10 mg/g_ creat 0-29 Ciarra l: 0 - 29 Moder ately incre ased: 30 - 300 Sever yareli incre ased: >300 Not Available [facility] ([facility]) [address] [facility], [place], [address], 02/26/2025 15:11:40 02/26/20 25 02/26/2025 LIPAS E lipase 41 U/L 14-72 Not Available [facility] ([facility]) [address] [place], [address], 02/26/2025 15:11:41 02/26/20 25 02/25/2025 HbA1c (hemo globi n A1c), blood HbA1C 6.5 % Not Available In-Office Order Internal Use Only DO Not Attach Compendium DO Not Attach Compendium, Do Not Delete/merge, [id number] 02/25/2025 10:52:34 05/26/2005/26/2025 HbA1c (hemo globi n A1c), blood HbA1C 6.3 % Not Available In-Office Order Internal Use Only DO Not Attach Compendium DO Not Attach Compendium, Do Not Delete/merge, [id number] 05/26/2025 10:15:50 02/20/20 25 02/19/2025 CT, abdom en + pelvi s, w/o contr ast No observ ation record ed. [address], [place], [address], 03/02/2025 16:17:34 Result Notes None recorded. Problems Name Problem SNOMED Code Status Onset Date Resolution Date Notes Provider Name and Address Organization Details Recorded Time Anxiety 28963053 Active Not Available [facility] 3 12:52:34 Depressive disorder 96544944 Active Not Available [facility] 3 12:52:34 Bipolar disorder 70496219 Active Not Available [facility] 3 12:52:34 Uncontrolled type 2 diabetes mellitus 016021821 Active 2023 RHODA CRISTOBAL PA-C Attn: Accounting ,[address] [place], [address] , [place] [facility] 4 15:10:32 Type 2 diabetes mellitus 28573814 Active 2024 RHODA CRISTOBAL PA-C Attn: Accounting ,[address] [place], [address] , [place] [facility] 5 09:33:00 Essential hypertension 91229257 Active 2024 RHODA CRISTOBAL PA-C Attn: Accounting ,[address] [facility], [place], [address] , [place] [facility] 5 09:38:41 Mixed hyperlipidemi a 140156102 Active 2024 RHODA CRISTOBAL PA-C Attn: Accounting ,[address] [facility], [place], [address] , [place] [facility] 5 11:23:39 Drug-induced acute pancreatitis 832413771 Active 2024 RHODA CRISTOBAL PA-C Attn: Accounting ,[address] [facility], [place], [address] , [place] [facility] 10:19:29 Disease 94910621 Active 2024 RHODA CRISTOBAL PA-C Attn: Accounting ,[address] [facility], [place], [address] , [place] [facility] 10:19:36 Problem Notes None recorded. Medical Equipment None Reported. Allergies No known drug allergies Medications Name Sig Start Date Stop Date Status Note LastModified by Organization Details LastModified Time clonazepa m odt 0.25 mg tbdp 07/25 completed Not Available Not Available Not Available [employer] Ultra Blue Test Strips USE TO CHECK BLOOD SUGAR ONCE DAILY 2023 active Not Available Not Available Not Avai lable citalopra m hydrobrom jessie 40 mg tabs 07/25 completed Not Available Not Available Not Available citalopra m tab 40mgcital opram hydrobrom jessie 07/25 completed Not Available Not Available Not Available clonazepa m 0.5 mg tabs 07/25 completed Not Available Not Available Not Available clonazepa m tab 0.5mgclon azepam 07/25 completed Not Available Not Available Not Available bupropion HCl SR 150 mg tablet,12 hr sustained -release 12/05 completed Not Available Not Available Not Available citalopra m 40 mg tablet TAKE ONE TABLET BY MOUTH ONE TIME DAILY 07/25 completed Not Available Not Available Not Available trazodone 50 mg tablet active Not Available Not Available Not Available fluconazo le 200 mg tablet TAKE 1 TABLET BY MOUTH ONCE DAILY AFTER A MEAL FOR 14 DAYS 12/05 completed Not Available Not Available Not Available lisinopri l 20 mg tablet TAKE 1 TABLET BY MOUTH ONCE DAILY FOR BLOOD PRESSURE FOR 90 DAYS 02/25 completed 02/25/25 patient was taken off of the medicati on in the hospital . Not Available Not Available Not Available clonazepa m 0.5 mg tablet 07/25 completed Not Available Not Available Not Available atenolol 25 mg tablet Take 1 tablet every day by oral route for 30 days, for blood pressure . 2024 active Not Available Not Available Not Avai lable terbinafi ne HCl 250 mg tablet TAKE 1 TABLET BY MOUTH ONCE DAILY active Not Available Not Available No t Available Novolin R Regular U-100 Insulin 100 unit/mL injection solution Take 20 units every day by injectio n route as directed for 1 day. 12/05 completed Not Available Not Available Not Available OneTouch Ultra Test strips USE 1 STRIP TO CHECK GLUCOSE ONCE DAILY active Not Available Not Available No t Available pantopraz ole 40 mg tablet,de layed release 07/25 completed Not Available Not Available Not Available metformin 1,000 mg tablet Take 1 tablet twice a day by oral route after meals for 90 days, for diabetes . 2024 active Not Available Not Available Not Avai lable lisinopri l 10 mg tablet TAKE 1 TABLET BY MOUTH ONCE DAILY FOR BLOOD PRESSURE 12/03 completed Not Available Not Available Not Available bupropion HCl 75 mg tablet TAKE 1 TABLET(S ) EVERY DAY BY MOUTH FOR NERVES 08/09 completed Not Available Not Available Not Available sertralin e 25 mg tablet 07/25 completed Not Available Not Available Not Available hydroxyzi ne HCl 25 mg tablet 02/25 completed Not Available Not Available Not Available sertralin e 50 mg tablet active Not Available Not Available Not Available hydroxyzi ne pamoate 25 mg capsule 01/17 completed Not Available Not Available Not Available clonazepa m 0.25 mg disintegr ating tablet Place 1 tablet(s ) every day by translin gual route as needed for 30 days. 07/25 completed Not Available Not Available Not Available rosuvasta tin 5 mg tablet Take 1 tablet every day by oral route at bedtime for 90 days. 2024 active Not Available Not Available Not Avai lable bupropion HCl XL 150 mg 24 hr tablet, extended release active Not Available Not Available Not Available Alcohol Prep Pads USE 1 ONCE DAILY NEEDED FOR 30 DAYS active Not Available Not Available No t Available Prilosec OTC active Not Available Not Available Not Available Januvia 100 mg tablet Take 1 tablet every day by oral route after meal(s) for 30 days. 03/11 completed Not Available Not Available Not Available Trulicity 1.5 mg/0.5 mL subcutane ous pen injector INJECT 1 SYRINGE SUBCUTAN EOUSLY ONCE A WEEK 02/25 completed Not Available Not Available Not Available Trulicity 0.75 mg/0.5 mL subcutane ous pen injector Inject 0.75 mg every week by subcutan eous route for 30 days, for diabetes . 09/11 completed Not Available Not Available Not Available OneTouch Ultra2 Meter USE DIRECTED active Not Available Not Available No t Available OneTouch Delica Plus Lancet 33 gauge USE DIRECTED ONCE DAILY active Not Available Not Available No t Available Vitals Date Recorded Body height Body mass index (BMI) Body weight Body temperature Oxygen saturation Oxygen saturation in Arterial blood by Pulse oximetry Heart rate Systolic And Diastolic Provider Name and Address Organization Details Last Updated DateTime 5 162.56 cm 34.6 kg/m2 17961.9 4 g 98.4 [degF] 99 % 99 % 100 /min 130/80 mm[Hg] Mee Haider MA [facility] 5 08:50:53 Date Recorded Body height Body mass index (BMI) Body weight Body temperature Oxygen saturation Oxygen saturation in Arterial blood by Pulse oximetry Heart rate Systolic And Diastolic Provider Name and Address Organization Details Last Updated DateTime 5 162.56 cm 33.1 kg/m2 82638.2 5 g 98.6 [degF] 97 % 97 % 110 /min 124/76 mm[Hg] Mee Haider MA [facility] 5 08:55:49 Date Recorded Body height Body mass index (BMI) Body weight Oxygen saturation Oxygen saturation in Arterial blood by Pulse oximetry Heart rate Body temperature Systolic And Diastolic Provider Name and Address Organization Details Last Updated DateTime 5 162.56 cm 30.2 kg/m2 66308.2 6 g 98 % 98 % 92 /min 98.4 [degF] 124/76 mm[Hg] Su Pickett MA [facility] 5 10:33:48 Date Recorded Body height Body mass index (BMI) Body weight Oxygen saturation Oxygen saturation in Arterial blood by Pulse oximetry Heart rate Body temperature Systolic And Diastolic Provider Name and Address Organization Details Last Updated DateTime 5 162.56 cm 29 kg/m2 57449.1 1 g 98 % 98 % 81 /min 97.6 [degF] 122/80 mm[Hg] Su Pickett MA [facility] 5 10:05:21 Date Recorded Body height Body mass index (BMI) Body weight Oxygen saturation Oxygen saturation in Arterial blood by Pulse oximetry Heart rate Body temperature Systolic And Diastolic Provider Name and Address Organization Details Last Updated DateTime 162.56 cm 28.8 kg/m2 00982.5 2 g 98 % 98 % 86 /min 98.2 [degF] 120/76 mm[Hg] Rebeca Senlure [facility] 5 10:08:52 Social History Question Answer Notes LastModified by Organizat ion Details LastModified Time Tobacco Smoking Status Never Smoker Mee Haider MA [facility], [facility] 01/17/2023 11:12:30 Do You Have An Advance Directive? No Information not available 05/23/2023 Are You Blind Or Do You Have Difficulty Seeing? Yes Wears Glasses Information not available 01/17/2023 What Is Your Level Of Caffeine Consumption? Occasional Information not available 01/17/2023 Are You Deaf Or Do You Have Serious Difficulty Hearing? No Information not available 01/17/2023 What Type Of Diet Are You Following? REGULAR Information not available 01/17/2023 What Is The Highest Grade Or Level Of School You Have Completed Or The Highest Degree You Have Received? [id number] Information not available 05/23/2023 Are There Any Guns Present In Your Home? No Information not available 05/23/2023 What Was The Date Of Your Most Recent Tobacco Screening? 05/26/2025 [email or web address] Information not available 05/26/2025 What Is Your Relationship Status? Single Engaged Information not available 01/17/2023 Do You Use Your Seat Belt Or Car Seat Routinely? Yes Information not available 01/17/2023 Do You Have Smoke And Carbon Monoxide Detectors In Your Home? Yes Information not available 05/23/2023 Do You Use Sunscreen Routinely? Yes Information not available 05/23/2023 Has Tobacco Cessation Counseling Been Provided? Yes [email or web address] Information not available 08/22/2023 On What Date Was Tobacco Cessation Counseling Provided? 06/11/2024 [email or web address] Information not available 06/11/2024 Sex: Female Functional Status Question Answer Note LastModified by Organizat ion Details LastModified Time Do you use any illicit or recreational drugs? No Information not available 01/17/2023 Do you or have you ever used any other forms of tobacco or nicotine? No Information not available 01/17/2023 What is your level of alcohol consumption? Occasional Beers -- a few on weekends [email or web address] Information not available 01/08/2015 Are you currently employed? No Information not available 01/17/2023 Are you able to care for yourself independently? Yes Information not available 01/17/2023 What is your exercise level? Moderate Information not available 01/17/2023 Mental Status Question Answer Note LastModified by Organization D etails LastModified Time Do you feel stressed (tense, restless, nervous, or anxious, or unable to sleep at night)? [id number] Information not available 01/17/2023 Family History Nothing Reported. Medical History Condition Response Coronary Artery Disease N Other N High Blood Pressure N Atrial Fibrillation N Kidney or Bladder Problems N Thyroid Problems N GI Problems N Depression Y COPD N Blood Clots N Skin Problems N Anemia N Heart Attack ([place]) N Anxiety Disorder Y Diabetes Y Muscle, Joint, or Bone Problems N Seizures/Epilepsy N Acid Reflux (GERD) Y Cancer N Stroke N Asthma N Allergies N High Cholesterol Y Hepatitis N Liver Disease N Headaches N Osteoporosis N Heart Failure N Gynecological History Statement/Question Response If Post Menopausal, Age at Menopause 49 Flow Moderate Date of LMP 11/18/2024 Frequency of Cycle (Q days) 28 On BCP's at Conception? N Menses Monthly N Duration of Flow (days) 5 Age at Menarche 13 Current Control Method None LMP Approximate Obstetrics History GPAL:G 0 P 0 0 0 0 Type Value Multiple Births 0 Full Term 0 Induced 0 Spontaneous 0 Premature 0 Living 0 Ectopics 0 Total 0 Immunizations Vaccine Type Date Status Note Provider Nam e and Address Organization Details Recorded Time COVID-19, mRNA, LNP-S, PF, 30 mcg/0.3 mL dose 1 completed Mee Ha[place], [place] [facility] 01/17/2023 11:11:28 COVID-19, mRNA, LNP-S, PF, 30 mcg/0.3 mL dose 1 completed Mee Ha[place], [place] [facility] 01/17/2023 11:11:28 Pneumococcal conjugate PCV20, polysaccharide [id number] conjugate, adjuvant, PF 4 completed Lottie Dunlap [place], [place] [facility] 06/11/2024 14:55:43 Past Encounters Encounter ID Performer Location Encounter Start Date Encounter Closed Date Diagnosis/Indication Diagnosis SNOMED-CT Code Diagnosis ICD10 Code Diagnosis IMO Codes Diagnosis Note [id number] MD Mitchel Sands (Adult Med) [address] [place] [phone] 07/16/2014 17:23:50 07/16/2014 18:08:20 Anxiety 72968195 Depressive disorder 02498924 History of cerebrovascular accident 455876568 [id number] MD Mitchel Sands (Adult Med) [address] [place] [address] [phone] 01/08/2015 12:20:10 01/08/2015 17:52:57 Anxiety 37648238 Depressive disorder 35093140 History of cerebrovascular accident 542238717 [id number] MD Mitchel Sands (Adult Med) [address] [place] [phone] 03/16/2015 14:43:22 03/16/2015 18:14:53 Anxiety 52452792 Depressive disorder 96773044 History of cerebrovascular accident 739571271 [id number] MD Mitchel Sands (Adult Med) [address] [place] [phone] 0 06/07/2015 15:30:58 06/10/2015 10:18:09 Depressive disorder 87118445 F32.9 History of cerebrovascular accident 594295640 Z86.73 Anxiety 59432427 F41.9 [id number] MD Mitchel Sands (Adult Med) [address] [place] [address] [phone] 09/21/2015 15:02:45 09/21/2015 16:15:10 Anxiety 79143480 F41.9 Depressive disorder 3548 9007 F32.9 Bipolar disorder 0914359 4 F31.9 [id number] Alexa Ashford MD [facility] (Adult Med) [address] [place] [address] [phone] 07/25/2017 13:57:19 07/25/2017 15:51:55 Morbid obesity 231722703 E66.01 Diet, exercise and lose weight . Bipolar disorder 9520079 4 F31.9 Under the care at [facility]. Depressive disorder 3548 9007 F32.9 Anxiety 34523200 F41.9 Under the care of [facility]. [id number] [facility] [address] [place] [address] [phone] 08/09/2018 12:28:50 08/09/2018 13:45:55 Adult health examination 078968348 Z00.00 Morbid obesity 988821502 E66.01 Diet, exercise and lose weight . Screening mammography 24 771654 Z12.31 Patient declines. Screening for malignant neoplasm of cervix 248958448 Z12.4 She declines. [id number] MD Mitchel Sands (Adult Med) [address] [place] [phone] 01/07/2019 11:10:15 01/08/2019 09:12:19 Bipolar disorder 15744267 F31.9 Under the care at [facility]. Screening mammography 24 172614 Z12.31 Patient declines. [id number] MD Mitchel Sands (Adult Med) [address] [place] [address] [phone] 01/17/2023 10:45:06 01/18/2023 12:54:01 Type 2 diabetes mellitus 01960534 E11.9 Mother is type 2 DM, just yang told to have DM few weeks ago at [facility]. blood sugar is 437 mg% at this office, will give 20 units regular insulin subcut today, will start metformin, and F/U in one month. she agreed to try. Advised to watch diabetic diet, exercise and lose weight. Bipolar disorder 4022853 4 F31.9 Under the care at [facility]. Obesity 319161459 E66.9 [id number] Alexa Ashford MD [facility] (Adult Med) [address] [place] [address] [phone] 02/20/2023 11:38:03 02/22/2023 13:46:03 Type 2 diabetes mellitus 23445788 E11.9 Mother is type 2 DM, just yang told to have DM few weeks ago at [facility]. blood sugar is 437 mg% at this office, will give 20 units regular insulin subcut today, will start metformin, and F/U in one month. she agreed to try. Advised to watch diabetic diet, exercise and lose weight. Onychomyco sis of toenails 414638614 B35.1 Discussed with patient , she agreed to try med first . Obesity 645763168 E66.9 Advised to watch her diabetic diet, exercise and lose weight. BMI is 39.7 as 02-20-23. Elevated blood-pressure reading without diagnosis of hypertension 216544264 R03.0 Advised to be on low salt, diabetic diet, avoid NSAID , or OTC decongesta nt, if possible, will monitor blood pressure in the next visit. Bipolar disorder 4956456 4 F31.9 Under the care at [facility]. Cervical c ancer Papanicolaou smear screening declined [id number] 84099 Z53.20 She will make appointmen t later, but not today. 02-20-23. Mammogram declined 73792 5004 Z53.20 Not today. . HIV screen ing declined 1325696702 92212 Z53.20 She declined 02-20-23. [id number] Alexa Ashford MD [facility] (Adult Med) [address] [place] [address] [phone] 05/23/2023 09:49:17 05/28/2023 14:31:25 Type 2 diabetes mellitus 02716653 E11.9 Mother is type 2 DM, just yang told to have DM few weeks ago at [facility]. blood sugar is 437 mg% at this office, will give 20 units regular insulin subcut today, will start metformin, and F/U in one month. she agreed to try. Advised to watch diabetic diet, exercise and lose weight. Obesity 259172539 E66.9 Advised to watch her diabetic diet, exercise and lose weight. BMI is 39.7 as 02-20-23. As 05-25-23, BMI is 38.8. Onychomyco sis of toenails 551327814 B35.1 Discussed with patient , she agreed to try med first . Elevated blood-pressure reading without diagnosis of hypertension 458285982 R03.0 Advised to be on low salt, diabetic diet, avoid NSAID , or OTC decongesta nt, if possible, will monitor blood pressure in the next visit. Bipolar disorder 7974151 4 F31.9 [facility]. Cervical c ancer Papanicolaou smear screening declined [id number] 82237 Z53.20 She will make appointmen t later, but not today. 02-20-23. Mammogram declined 41489 5004 Z53.20 Not today. 0-02-20-23. HIV screen ing declined [id number] 27651 Z53.20 She declined 02-20-23. Influenza vaccination declined 097083499 Z28.21 She declined 05-23-23. [id number] Alexa Ashford MD [facility] (Adult Med) [address] [place] [address] [phone] 08/22/2023 09:44:17 08/29/2023 15:59:04 Uncontrolled type 2 diabetes mellitus 689897525 E11.65 Diabetid diet, exercise and keep the weight down. Refill med. Type 2 scott betes mellitus 30545781 E11.9 Mother is type 2 DM, just yang told to have DM few weeks ago at [facility]. blood sugar is 437 mg% at this office, will give 20 units regular insulin subcut today, will start metformin, and F/U in one month. she agreed to try. Advised to watch diabetic diet, exercise and lose weight. Obesity 624335655 E66.9 Advised to watch her diabetic diet, exercise and lose weight. BMI is 39.7 as 02-20-23. As 05-25-23, BMI is 38.8. As today 08-22-23, BMI down to 38.6 . [id number] MD [facility] (Adult Med) [address] [place] [phone] 12/06/2023 14:56:49 12/07/2023 08:59:15 Uncontrolled type 2 diabetes mellitus 694263984 E11.65 Last A1C:Today (12/06/23), 10.5 (08/23/23)G oal A1C less than:7.0%C urrent Therapy:Me tformin 1000mg BID, Januvia 100mg QDStatin:R osuvastati n 5mgACE/ARB :noFoot Exam:compl eted in the past 12 months-neg ativeNephr opathy Screening: due- ordered todayPneum ovax 23:Not givenEye Exam:due- recommende d annual dilated eye exam- ordered todayPatie nt Education: healthy diet:yesex ercise:yes weight loss:yesfo ot care:yesco mplication s of uncontroll ed diabetes:y esmedicati on compliance :yes Keep a food diaryFollo w a healthy heart low fat low cholestero l dietExerci se 50-60 minutes 5-6 times per weekIncrea se water intakeStop concentrat ed sugarsTake your diabetes medication dailyCheck blood sugars fasting and post prandial --keep a log--bring to next appointmen tStop concentrat ed sugars--fo llow 1500 meal planExerci se 50-60 minutes daily on most daysCheck your feet for sores, cuts, etc.See eye doctor once a yearsee dentist every 6 months Next Visit: 3 month(s)C/ W Januvia 100mgC/W Metformin 1000mgC/W Rosuvastat in 5mg Depression screening 171 847768 Z13.31 PHQ9- Negative (0 out of 27) Mental hea lth screening 330155073 Z13.39 GAD7- Negative (0 out of 21) Body mass index 30+ - obesity 529318378 Z68.37 BMI 37.2 Advised decreased portion sizes, good food choices, limited eating out or fast food and eliminate soda and juice from diet. Advised physical activity daily and offered encouragem ent to continue with positive changes made so far. [id number] MD Mitchel Lantigua (Adult Med) [address] [place] [phone] 03/11/2024 13:58:30 03/12/2024 13:15:06 Uncontrolled type 2 diabetes mellitus 273464544 E11.65 Last A1C:Today 8.0 (03/11/24) 8.7 (12/06/23), 10.5 (08/23/23)G oal A1C less than:7.0%C urrent Therapy:Me tformin 1000mg BID, Januvia 100mg QDStatin:R osuvastati n 5mgACE/ARB :noFoot Exam:compl eted in the past 12 months-neg ativeNephr opathy Screening: Normal 12/06/23Pne umovax 23:Not givenEye Exam:Ciarra l 02/19/24 Patient Education: healthy diet:yesex ercise:yes weight loss:yesfo ot care:yesco mplication s of uncontroll ed diabetes:y esmedicati on compliance :yes Keep a food diaryFollo w a healthy heart low fat low cholestero l dietExerci se 50-60 minutes 5-6 times per weekIncrea se water intakeStop concentrat ed sugarsTake your diabetes medication dailyCheck blood sugars fasting and post prandial --keep a log--bring to next appointmen tStop concentrat ed sugars--fo llow 1500 meal planExerci se 50-60 minutes daily on most daysCheck your feet for sores, cuts, etc.See eye doctor once a yearsee dentist every 6 months Next Visit: 3 month(s)D/ C Januvia 100mg dailyC/W Metformin 1000mg twice dailyC/W Rosuvastat in 5mg daily at bedtimeSta rt Trulicity Depression screening 171 195213 Z13.31 PHQ9- Negative (0 out of 27) Mental hea lth screening 351779903 Z13.39 GAD7- Negative (0 out of 21) Body mass index 30+ - obesity 400739600 Z68.37 BMI 37.2 Advised decreased portion sizes, good food choices, limited eating out or fast food and eliminate soda and juice from diet. Advised physical activity daily and offered encouragem ent to continue with positive changes made so far. Screening for malignant neoplasm of colon 770156144 Z12.11 Onychomyco sis of toenails 196942905 B35.1 start terbinafin e 250mg tabs daily [id number] Sada De La Paz MD [facility] (Adult Med) [address] [place] [phone] 06/11/2024 08:47:44 06/13/2024 16:49:33 Uncontrolled type 2 diabetes mellitus 245745612 E11.65 Last A1C:Today 7.5 (06/11/24) , 8.0 (03/11/24) 8.7 (12/06/23), 10.5 (08/23/23)G oal A1C less than:7.0%C urrent Therapy:Me tformin 1000mg BID, Trulicity 1.5mg weeklyStat in:Rosuvas tatin 5mgACE/ARB :noFoot Exam:compl eted in the past 12 months-neg ativeNephr opathy Screening: Normal 12/06/23Pne umovax 23:UTD Prevnar 20 given 06/11/24Ey e Exam:Ciarra l 02/19/24 Patient Education: healthy diet:yesex ercise:yes weight loss:yesfo ot care:yesco mplication s of uncontroll ed diabetes:y esmedicati on compliance :yes Keep a food diaryFollo w a healthy heart low fat low cholestero l dietExerci se 50-60 minutes 5-6 times per weekIncrea se water intakeStop concentrat ed sugarsTake your diabetes medication dailyCheck blood sugars fasting and post prandial --keep a log--bring to next appointmen tStop concentrat ed sugars--fo llow 1500 meal planExerci se 50-60 minutes daily on most daysCheck your feet for sores, cuts, etc.See eye doctor once a yearsee dentist every 6 months Next Visit: 3 month(s) C/W Metformin 1000mg twice dailyC/W Rosuvastat in 5mg daily at bedtimeC/w Trulicity 1.5mg weekly Depression screening 171 640893 Z13.31 PHQ9- Negative (0 out of 27) Mental hea [facility] screening 425445474 Z13.39 GAD7- Negative (0 out of 21) Body mass index 30+ - obesity 320336818 Z68.37 BMI 36.9 Advised decreased portion sizes, good food choices, limited eating out or fast food and eliminate soda and juice from diet. Advised physical activity daily and offered encouragem ent to continue with positive changes made so far. Administra tion of pneumococcal vaccine 93155428 Z23 Prevnar 20 vaccine given today [id number] Sada De La Paz MD [facility] (Adult Med) [address] [place] [phone] 09/11/2024 08:49:58 09/17/2024 13:15:57 Depression screening 508259443 Z13.31 PHQ9- Negative (0 out of 27) Mental hea [facility] screening 863045499 Z13.39 GAD7- Negative (0 out of 21) Obesity 283244980 E66.9 BMI 36.7 Type 2 scott betes mellitus 62673834 E11.9 Last A1C:Today 7.3 (09/11/24), 7.5 (06/11/24) , 8.0 (03/11/24) 8.7 (12/06/23), 10.5 (08/23/23)G oal A1C less than:7.0%C urrent Therapy:Me tformin 1000mg BID, Trulicity 1.5mg weeklyStat in:Rosuvas tatin 5mgACE/ARB :noFoot Exam:compl eted in the past 12 months-neg ativeNephr opathy Screening: Normal 12/06/23Pne umovax 23:Prevnar 20 given 06/11/24Ey e Exam:Ciarra l 02/19/24 Patient Education: healthy diet:yesex ercise:yes weight loss:yesfo ot care:yesco mplication s of uncontroll ed diabetes:y esmedicati on compliance :yes Keep a food diaryFollo w a healthy heart low fat low cholestero l dietExerci se 50-60 minutes 5-6 times per weekIncrea se water intakeStop concentrat ed sugarsTake your diabetes medication dailyCheck blood sugars fasting and post prandial --keep a log--bring to next appointmen tStop concentrat ed sugars--fo llow 1500 meal planExerci se 50-60 minutes daily on most daysCheck your feet for sores, cuts, etc.See eye doctor once a yearsee dentist every 6 months Next Visit: 6 month(s) C/W Metformin 1000mg twice dailyC/W Rosuvastat in 5mg daily at bedtimeC/w Trulicity 1.5mg weekly Essential hypertension 40607286 I10 BP today: 142/92BP Goal: Less than 140/90BP Controlled : noHealthy Weight: 5'4= 110-144 lbsDiscuss ed: Low sodium balanced diet, moderate exercise at least 3-4 times per week for an average of 40 minutes, limiting alcohol to 1 drink per day (F) or 2 drinks per day (M), and smoking cessation if currently smoking. Uncontroll ed Hypertensi on potential risks, heart attack, , stroke, kidney failure etc. Hypertensi on is the silent Killer Take your Hypertensi on medication daily keep appointmen ts stop concentrat ed sugars--fo llow 1500 meal plan exercise 50-60 minutes daily on most days see eye doctor once a year see dentist every 6 monthsNext Visit: 6week(s)Ne wly dx todayStart on lisinopril 10 mg dailyBP cuff given to pt today [id number] MD Mitchel Lantigua (Adult Med) [address] [place] [address] [phone] 10/23/2024 08:35:18 10/24/2024 11:16:50 Essential hypertension 79211901 I10 BP today: 130/80BP Goal: Less than 140/90BP Controlled : noHealthy Weight: 5'4= 110-144 lbsDiscuss ed: Low sodium balanced diet, moderate exercise at least 3-4 times per week for an average of 40 minutes, limiting alcohol to 1 drink per day (F) or 2 drinks per day (M), and smoking cessation if currently smoking. Uncontroll ed Hypertensi on potential risks, heart attack, , stroke, kidney failure etc. Hypertensi on is the silent Killer Take your Hypertensi on medication daily keep appointmen ts stop concentrat ed sugars--fo llow 1500 meal plan exercise 50-60 minutes daily on most days see eye doctor once a year see dentist every 6 monthsNext Visit: 6week(s)In crease lisinopril to 20 mg daily Depression screening 171 128692 Z13.31 PHQ9- Negative (0 out of 27) Mental hea [facility] screening 557920347 Z13.39 GAD7- Negative (0 out of 21) Obesity 311421580 E66.9 BMI 36.7 [id number] MD Mitchle Lantigua (Adult Med) [address] [place] [phone] 12/03/2024 08:33:20 12/04/2024 15:14:27 Essential hypertension 10189963 I10 BP today: 124/76BP Goal: Less than 140/90BP Controlled : noHealthy Weight: 5'4= 110-144 lbsDiscuss ed: Low sodium balanced diet, moderate exercise at least 3-4 times per week for an average of 40 minutes, limiting alcohol to 1 drink per day (F) or 2 drinks per day (M), and smoking cessation if currently smoking. Uncontroll ed Hypertensi on potential risks, heart attack, , stroke, kidney failure etc. Hypertensi on is the silent Killer Take your Hypertensi on medication daily keep appointmen ts stop concentrat ed sugars--fo llow 1500 meal plan exercise 50-60 minutes daily on most days see eye doctor once a year see dentist every 6 monthsNext Visit: 3month(s)C /w lisinopril to 20 mg daily Tachycardia 0550240 R00. 0 70299 No symptoms reported by patient.Pu lse has been in 100's on exam history.Co unseled on precaution s. Depression screening 171 678515 Z13.31 6264707 PHQ9- Negative (0 out of 27) Mental hea [facility] screening 604344671 Z13.30 3247985903 GAD7- Negative (0 out of 21) Obesity 106553099 E66.9 BMI 33.1 [id number] MD Mitchel Lantigua (Adult Med) [address] [place] [phone] 02/25/2025 10:19:14 02/26/2025 12:03:14 Type 2 diabetes mellitus 33098421 E11.9 Last A1C:Today 6.5 (), 7.3 (09/11/24), 7.5 (06/11/24) , 8.0 (03/11/24) 8.7 (12/06/23), 10.5 (08/23/23)G oal A1C less than:7.0%C urrent Therapy:Me tformin 1000mg BIDStatin: Rosuvastat in 5mgACE/ARB :noFoot Exam:compl eted in the past 12 months-neg ativeNephr opathy Screening: Normal 12/06/23Pne umovax 23:Prevnar 20 given 06/11/24Ey e Exam:Ciarra l 02/19/24 Patient Education: healthy diet:yesex ercise:yes weight loss:yesfo ot care:yesco mplication s of uncontroll ed diabetes:y esmedicati on compliance :yes Keep a food diaryFollo w a healthy heart low fat low cholestero l dietExerci se 50-60 minutes 5-6 times per weekIncrea se water intakeStop concentrat ed sugarsTake your diabetes medication dailyCheck blood sugars fasting and post prandial --keep a log--bring to next appointmen tStop concentrat ed sugars--fo llow 1500 meal planExerci se 50-60 minutes daily on most daysCheck your feet for sores, cuts, etc.See eye doctor once a yearsee dentist every 6 months Next Visit: 3 month(s) C/W Metformin 1000mg twice dailyC/W Rosuvastat in 5mg daily at bedtimed/c Trulicity 1.5mg weekly Drug-induc ed acute pancreatitis 676132547 K85.30 [id number] repeat labs today Essential hypertension 23312557 I10 BP today: 124/76BP Goal: Less than 140/90BP Controlled : noHealthy Weight: 5'4= 110-144 lbsDiscuss ed: Low sodium balanced diet, moderate exercise at least 3-4 times per week for an average of 40 minutes, limiting alcohol to 1 drink per day (F) or 2 drinks per day (M), and smoking cessation if currently smoking. Uncontroll ed Hypertensi on potential risks, heart attack, , stroke, kidney failure etc. Hypertensi on is the silent Killer Take your Hypertensi on medication daily keep appointmen ts stop concentrat ed sugars--fo llow 1500 meal plan exercise 50-60 minutes daily on most days see eye doctor once a year see dentist every 6 monthsNext Visit: 6week(s)d/ c lisinopril d/t DRAGAN in ERStart atenolol 25mg daily Depression screening 171 Z13.31 7425982 PHQ9- Negative (0 out of 27) Mental hea lth screening 355200802 Z13.30 0448945694 GAD7- Negative (0 out of 21) Obesity 727232173 E66.9 BMI 33.1 Disease 07726795 K46.9 14940 Keep appt with surgeon Acute kidney injury 1466 9001 N17.9 4451823 Increase water intakeRepe at labs today Mixed hyperlipidemia 267 114895 E78.2 47471 [id number] MD Mitchel Lantigua (Adult Med) [address] [place] [phone] 04/08/2025 09:52:15 04/09/2025 10:06:03 Essential hypertension 95905763 I10 BP today: 122/80BP Goal: Less than 140/90BP Controlled : noHealthy Weight: 5'4= 110-144 lbsDiscuss ed: Low sodium balanced diet, moderate exercise at least 3-4 times per week for an average of 40 minutes, limiting alcohol to 1 drink per day (F) or 2 drinks per day (M), and smoking cessation if currently smoking. Uncontroll ed Hypertensi on potential risks, heart attack, , stroke, kidney failure etc. Hypertensi on is the silent Killer Take your Hypertensi on medication daily keep appointmen ts stop concentrat ed sugars--fo llow 1500 meal plan exercise 50-60 minutes daily on most days see eye doctor once a year see dentist every 6 monthsNext Visit: 3week(s)c/ w atenolol 25mg daily Depression screening 171 Z13.31 3119204 PHQ9- Negative (0 out of 27) Mental hea lth screening 627939834 Z13.30 8340596072 GAD7- Negative (0 out of 21) Overweight 928350819 E66 .3 BMI 29.0 Hernia of abdominal cavity 29298773 K46.9 [id number] Scheduled for surgery on 04/23/2025 [id number] MD Mitchel Lantigua (Adult Med) [address] [place] [phone] 05/26/2025 09:45:58 05/27/2025 10:19:55 Type 2 diabetes mellitus 96823994 E11.9 Last A1C:Today 6.3 (05/26/25) , 6.5 (), 7.3 (09/11/24), 7.5 (06/11/24) , 8.0 (03/11/24) 8.7 (12/06/23), 10.5 (08/23/23)G oal A1C less than:7.0%C urrent Therapy:Me tformin 1000mg BIDStatin: Rosuvastat in 5mgACE/ARB :noFoot Exam:compl eted in the past 12 months-neg ativeNephr opathy Screening: Normal 12/06/23Pne umovax 23:Prevnar 20 given 06/11/24Ey e Exam:Ciarra l 02/19/24 Patient Education: healthy diet:yesex ercise:yes weight loss:yesfo ot care:yesco mplication s of uncontroll ed diabetes:y esmedicati on compliance :yes Keep a food diaryFollo w a healthy heart low fat low cholestero l dietExerci se 50-60 minutes 5-6 times per weekIncrea se water intakeStop concentrat ed sugarsTake your diabetes medication dailyCheck blood sugars fasting and post prandial --keep a log--bring to next appointmen tStop concentrat ed sugars--fo llow 1500 meal planExerci se 50-60 minutes daily on most daysCheck your feet for sores, cuts, etc.See eye doctor once a yearsee dentist every 6 months Next Visit: 3 month(s) C/W Metformin 1000mg twice dailyC/W Rosuvastat in 5mg daily at bedtimed/c Trulicity 1.5mg weekly Essential hypertension 53028328 I10 BP today: 120/76BP Goal: Less than 140/90BP Controlled : noHealthy Weight: 5'4= 110-144 lbsDiscuss ed: Low sodium balanced diet, moderate exercise at least 3-4 times per week for an average of 40 minutes, limiting alcohol to 1 drink per day (F) or 2 drinks per day (M), and smoking cessation if currently smoking. Uncontroll ed Hypertensi on potential risks, heart attack, , stroke, kidney failure etc. Hypertensi on is the silent Killer Take your Hypertensi on medication daily keep appointmen ts stop concentrat ed sugars--fo llow 1500 meal plan exercise 50-60 minutes daily on most days see eye doctor once a year see dentist every 6 monthsNext Visit: 3week(s)c/ w atenolol 25mg daily Drug-induc ed acute pancreatitis 590725614 K85.30 [id number] repeat labs today Acute kidney injury 1466 9001 N17.9 0589611 Increase water intakeRepe at labs today Mixed hyperlipidemia 267 196560 E78.2 02524 Disease 47924320 K46.9 58318 Keep appt with surgeon Depression screening 171 329431 Z13.31 2689778 PHQ9- Negative (0 out of 27) Mental hea lth screening 111597420 Z13.30 0724695715 GAD7- Negative (0 out of 21) Obesity 737623743 E66.9 BMI 33.1 Overweight 904746061 E66 .3 BMI 29.0 Influenza vaccination declined 564301014 Z28.21 25819132 Health Concerns Section Related Observation LastModified by Organization Detai ls LastModified Time None Recorded Concern Status LastModified by Organization Details LastModified Time None Recorded Advance Directives Directive N: Payers Insurance Date Sequence Insurance Name Policy Number Policy Pearson Covered Member ID Pearson Member ID Guarantor Name 01/17/2023 1 [facility] - DOS PRIOR TO 2021 (MEDICAID REPLACEMENT - HMO) Larissa Gómez [id number] Larissa Gómez 06/07/2015 SLIDING FEE SCHEDULE - DISCOUNT Larissa Gómez 01/17/2023 1 [facility] (MEDICAID HMO) Larissa Gómez [id number] Larissa Gómez 05/23/2025 1 [facility] - DOS ON OR AFTER 21 (MEDICAID REPLACEMENT - HMO) Larissa Gómez [id number] Larissa Gómez Notes Date Note Type Note Provider Name and Address Organization Details Recorded Time 10/23/2024 text/html Hypertension F/UReported by PatientHPIFor associated symptoms, patient reportsno dizziness,no lightheadedness,no chest pain,no shortness of breath,no palpitations,no edema, andno calf pain with exertion. For lifestyle, patient reportsregular exerciseandlimiting/ avoiding salt. For medications, patient reportstaking medications as directedandno side effects from medication. 48-year-old female here for follow-up hypertension. RHODA CRISTOBAL PA-C Attn: [address]ing,[address] [facility], [place], [address], [facility] 10/23/2024 09:05:05 12/03/2024 text/html Hypertension F/UReported by PatientHPIFor associated symptoms, patient reportsno dizziness,no lightheadedness,no chest pain,no shortness of breath,no palpitations,no edema, andno calf pain with exertion. For medications, patient reportstaking medications as directed,no side effects from medication, andchecks blood pressure at home, range: (130-120/80).ROS as noted in the HPI This is a 49 yo female here today for hypertension follow up. Patient denies any new problems or concerns at this time. RHODA CRISTOBAL PA-C Attn: Accounting[address] [facility], [place], [address], [facility] 12/03/2024 09:25:19 02/25/2025 text/html ROS as noted in the HPI Larissa Gómez is a 49yo female presenting for F/U regarding a hospital 02/18 where she was admitted for 5 days. She was diagnosed with pancreatitis, acute dehydration, acute renal failure, and a possible hernia. Pt was advised to stop taking trulicity as it was a possible cause for pancreatitis and stop taking lisinopril due to DRAGAN. Pt states she was vomiting for about 4 weeks before she went to the hospital, states she thought she would get better on her own. Pt will schedule appointment with general surgeon Dr. Mckenzie. Pt has been doing well since discharge from hospital. Has been taking all other medications except trulicity and lisinopril. RHODA CRISTOBAL PA-C Attn: Accounting,[address] [facility], [place], [address], [facility] 02/25/2025 11:24:07 04/08/2025 text/html Hypertension F/UReported by PatientHPIFor associated symptoms, patient reportsno dizziness,no lightheadedness,no chest pain,no shortness of breath,no palpitations,no edema, andno calf pain with exertion. For lifestyle, patient reportsregular exerciseandlimiting/ avoiding salt. For medications, patient reportstaking medications as directedandno side effects from medication.ROS as noted in the HPI 49-year-old female here for follow-up hypertension. Patient states he has been doing well and feeling well. Patient has surgery for hernia repair on April 23, 2025. Patient unsure if she needs surgical clearance as she was not given paperwork by surgeon. Patient states she is afraid of surgery. Patient states she has been stress recently due to father being in the hospital. Patient denies any other problems or concerns at this time. RHODA CRISTOBAL PA-C Attn: Accounting,[address] [facility], [place], [id number], [facility] - [facility] 04/08/2025 10:41:50 05/26/2025 text/html Diabetes F/URepo rted by PatientHPIFor context, patient reportsnormal range of home blood sugars (in the low 100s),seeing eye doctor regularly, andchecking feet regularly. For associated symptoms, patient reportsno weight gain,no weight loss,no dizziness,no sweats,no headaches,no confusion,no increased thirst,no increased appetite,no increased urination,no blurred vision,no numbness of feet, andno calluses on feet.Patient believes her diabetes is under control. She is needing a medication refill today. Hypertension F/UReported by PatientHPIFor associated symptoms, patient reportsno dizziness,no lightheadedness,no chest pain,no shortness of breath,no palpitations,no edema, andno calf pain with exertion. For lifestyle, patient reportsregular exerciseandlimiting/ avoiding salt. For medications, patient reportstaking medications as directedandno side effects from medication.Patient believes her blood pressure is under control and seeking a medication refill today.ROS as noted in the [facility] 49yo female presents today for follow up on chronic conditions. She states that she is feeling well and that her surgery got pushed back due to a umblical infection. She has the surgery in a few days. RHODA CRISTOBAL PA-C Attn: Accounting,[address] [facility], [place], [address], [facility] - [facility] 05/26/2025 10:44:42 OBGyn Episode No OBEpisode recorded.
[2025-05-28] MEDS: ACETAMINOPHEN 500 MG TABLET 1000 MG PO (11:36)
[2025-05-28] MEDS: KETOROLAC 15 MG/ML VIAL (*BKC) IV PUSH (11:36)
[2025-05-28] MEDS: LACTATED RINGERS 1,000 ML 30 ML IV CONT ×2 (11:36→16:47)
[2025-05-28 11:38] LABS: BEDSIDEPREGUCG Negative (Negative)
--- NOTE | 2025-05-28 12:24 | WPDHPUPDATE1 ---
History and Physical Update Update Date/Time: 05/28/25 12:24 History and Physical has been reviewed, including an updated exam of the patient. There are NO changes in the patient's condition. Risks, benefits, and alternatives have been discussed and questions answered. Patient agrees to proceed with procedure.
--- NOTE | 2025-05-28 12:50 | WPDANESEPPF ---
Anes - Initial Pre Proc Eval Procedure: Operation Date: 05/28/25 13:00 Proposed Procedures p Robotic Assisted Incarcerated Incisional Hernia Repair with Mesh, Possible Open with Component Separation - Elysia Mckenzie MD Date/Time: 05/28/25 12:50 Surgeon: Elysia Mckenzie MD Pre Op Diagnosis: incarcerated incisional hernia Patient Data Age: 49 Gender: F Height: 1.63 m Weight: 76.6 kg Last Vital Signs Temp 37.2 C 05/28/25 11:34 Pulse 72 05/28/25 11:34 BP 129/73 05/28/25 11:34 Pulse Ox 100 05/28/25 11:34 O2 Del Method Room Air 05/28/25 11:34 Allergies Allergy/AdvReac Type Severity Reaction Status Date / Time No Known Allergies Allergy Verified 05/20/25 14:48 Home Medications ?Medication ?Instructions ?Recorded ?Confirmed ?Type bupropion HCl 150 mg 24 hr tablet, 150 mg PO DAILY 02/19/25 05/28/25 History extended release hydroxyzine HCl 25 mg tablet 25 mg PO DAILY 02/19/25 05/28/25 History metformin 1,000 mg tablet 1,000 mg PO BID 02/19/25 05/20/25 History omeprazole magnesium 20 mg 40 mg PO DAILY 02/19/25 05/20/25 History tablet,delayed release (Prilosec OTC) rosuvastatin 5 mg tablet 5 mg PO HS 02/19/25 05/20/25 History sertraline 50 mg tablet 50 mg PO DAILY 02/19/25 05/28/25 History terbinafine HCl 250 mg tablet 250 mg PO HS 02/19/25 05/20/25 History atenolol 25 mg tablet 25 mg PO DAILY 03/11/25 05/28/25 History Laboratory Tests 05/28/25 05/28/25 11:21 11:34 POC Capillary Glucose 143 H mg/dl (65-105) POC Urine HCG, Qual Negative (Negative) Patient hx anesthesia problems: none Family hx anesthesia problems: none Results Review: All pre-operative results and documents have been reviewed as part of the pre-operative evaluation. [facility] Past Medical History Medical History (Updated 04/29/25 @ 11:06 by Elysia Mckenzie MD) Bipolar disorder Diabetes mellitus GAURAV (obstructive sleep apnea) Hypertension Family History Family History Father Hypertension Diabetes mellitus Mother Hypertension Diabetes mellitus Social History Social History (Updated 03/11/25 @ 08:42 by BILLY Garcia) Smoking status: Never smoker Alcohol intake: never Substance use: never Substance use type: does not use Do You Feel Safe in your Home?: Yes Lack of Transportation: No Lack of Food: Never True Current Housing: I Have Housing Concerned About Future Housing: No Difficulty Paying Gas/Electric Bills: No Difficulty Paying for Meds: No Currently Unemployed: No Education: High School Diploma/GED Difficulty w/ Childcare or Family Care: No Living arrangements: with family Spiritual care concerns: No Anes - Eval Final PreProcedure Day of Procedure 05/28/25 12:50 Patient weight: overweight Heart: regular rate and rhythm Lungs: clear to auscultation Airway: Mallampati scale class II and special considerations poor dentition Neurological: alert and oriented Last oral intake: >/= 8 hours ASA classification: III Emergent: no Anesthetic plan: proceed Anesthesia type and monitoring: general ETT and standard monitoring Results Review: All pre-operative results and documents have been reviewed as part of the pre-operative evaluation. Informed Consent: The patient's anesthetic plan and its attendant risks and benefits were discussed with the patient/family/POA. Questions were solicited and answers provided to the satisfaction of the patient/family/POA.
[2025-05-28] MEDS: ceFAZolin 2 GM in SODIUM CHLORIDE 0.9% IV 50 ML 100 ML IVPB (14:09)
[2025-05-28] MEDS: BUPIVACAINE/EPINEPHRINE 0.5% 50 ML VIAL 30 ML INFILTRATE (14:26)
--- NOTE | 2025-05-28 16:50 | P.OP_ITS ---
Procedure Note - Detailed Date of Procedure 05/28/25 Pre-op Diagnosis incarcerated incisional hernia x3, total defect length measuring 14 cm x 7 cm Post-op Diagnosis Same Procedure Performed robotic assisted incarcerated incisional hernia repair x3 total defect length measuring 14 x 7 cm with mesh, extensive lysis of adhesions of 1 hour Surgeon Elysia Mckenzie MD Anesthesia General and Local Indications 49-year-old female presenting to the office with incarcerated incisional hernia. Patient had preoperative imaging showing multiple midline incisional hernias. Patient noted to have incarcerated bowel within hernias. Findings incarcerated incisional hernia x3, largest hernia measuring 6 x 7 cm with noted incarcerated small intestine and transverse colon, smaller inferior hernia measuring 3 x 3 cm with noted small intestine incarcerated, superior hernia measuring 2 x 1 cm with incarcerated fat and omentum, Description of Procedure The patient was taken the operating room and placed in the supine position. After adequate induction of general anesthesia, the patient was prepped and draped in the normal sterile fashion. A time-out was then done to verify the patient's identity, as well as the procedure being performed. I began by making an 8 mm incision in the left mid abdomen. Through this a Veress needle was placed in the peritoneal cavity and CO2 gas was then insufflated. After adequate pneumoperitoneum was achieved, the Veress needle was removed and an 8 mm Optiview trocar was placed under direct visualization. Once confirmed in position, the laparoscopic was placed through this trocar site and the abdomen was examined. There was noted to be a large amount of adhesions to the upper midline of the abdominal wall. There was also noted to be adhesions of the liver to the anterior abdominal wall. Under direct visualization, I placed an 8 mm left lower quadrant port. I also proceeded to place a 8 mm left upper quadrant port. Once these ports were placed the patient was positioned properly and the robot was docked to these 3 trocar sites. I then proceeded to do an extensive lysis of adhesions. This lysis of adhesions took approximately 1 hour and included reduction of all 3 of the hernia defects. The inferior-most hernia was around the area of the umbilicus and measured 3 x 3 cm. This area did contain a loop of small intestine that was reduced. The small bowel was noted to be viable and pathology free. The largest hernia was approximately a cm superior to the periumbilical hernia. This hernia it measured 6 x 7 cm and contained both colon and small intestine. This was very carefully reduced and upon reduction the bowel was carefully examined. The bowel was noted to be viable and pathology free. There was also noted to be a large amount of omentum that was also reduced. Approximately 2 cm superior to the larger hernia was a small defect measuring 2 x 1 cm. This hernia contained fat and omentum that was easily reduced. I also freed up the falciform ligament to facilitate placement of the mesh superiorly. I then used a 0 Stratafix suture to close all defects in a running fashion. Of note, this did take multiple Stratafix sutures to close all defects as well as the bridges in between. I then placed a 20 x [address] mesh into the abdominal cavity. Of note the left upper quadrant port was upsized to facilitate placement of the mesh into the intra- abdominal cavity. This was done with a 12 mm port. The mesh was then positioned, centering the mesh over the largest defect. I then circumferentially sutured the mesh into position using 2 0 V lock suture x2. The mesh was noted to be tension-free and had good wide local coverage of all defects. At this point the positioning device was removed and all sutures and needles were removed. The 12 mm port site was then closed under direct visualization with a Aldo cone and 0 Vicryl suture. The abdomen was then desufflated and the robot was undocked. All port sites were then closed with 4- 0 Monocryl subcuticular suture. Dermabond was placed on all wounds. The patient tolerated the procedure well and was extubated postoperatively. She will be transferred to the recovery room in stable condition. Estimated Blood Loss 10 Pathology None sent Complications No immediate complications Condition Stable Disposition PACU [facility] Billing Surgery - Charge Forward: Surgery Billing
[2025-05-28] MEDS: ONDANSETRON INJ 4 MG/2 ML VIAL IV PUSH (16:59)
[2025-05-28] MEDS: oxyCODONE HCL (*CRX) 5 MG TAB IR PO (18:20)
== END 2025-05-28 19:15 | disposition home or self-care (01) ==
PROVIDERS: PCP Physician Assistant Medical; Visit Provider Surgery
PROC: (CPT 49596; principal; 2025-05-28 13:00)
DX: K43.0 Incisional hernia with obstruction, without gangrene (principal); K66.0 Peritoneal adhesions (postprocedural) (postinfection); E11.9 Type 2 diabetes mellitus without complications; I10 Essential (primary) hypertension; G47.33 Obstructive sleep apnea (adult) (pediatric); F31.9 Bipolar disorder, unspecified; B37.9 Candidiasis, unspecified; Z79.84 Long term (current) use of oral hypoglycemic drugs
CPT/HCPCS: 49596; S2900; 82948; J0690; A9270; C1781; J1100; J1171; J1200; J1885; J2003; J2250; J2405; J2704; J3010; J7030; J7120

== ENCOUNTER 2025-07-01 09:15 | Emergency (ER) | payer OTHER, SELFPAY ==
--- NOTE | ~2025-07-01 | XR_ITS ---
EXAMINATION: XR chest 2V, 07/01/2025 9:39 PRODUCT DEVELOPMENT WORKER HISTORY: LT SIDED CP x1 MONTH WORSEN TODAY; PT C/O ANXIETY COMPARISON: No comparisons available. Technique: 2 views obtained. Findings: The lungs are clear, no effusion. No pneumothorax. Heart is normal size. Mediastinal and hilar contours are within normal limits. Bony thorax no acute abnormality. Impression: No acute cardiopulmonary abnormality. Reviewed, dictated and finalized at location P. UCT DEVELOPMENT WORKER Impression: No acute cardiopulmonary abnormality.
--- NOTE | 2025-07-01 09:16 | ECG_ITS ---
Test Date: 2025-07-01 09:20:47 Measurements Intervals [place] Rate: 85 P: 59 [place]: 152 QRS: 17 QRSD: 93 T: 10 QT: 361 QTc: 429 Interpretive Statements SINUS RHYTHM NONSPECIFIC ST AND T-WAVE ABNORMALITY ABNORMAL ECG Compared to ECG 02/19/2025 13:23:40 No significant changes Electronically Signed On 07-01-2025 17:08:19 TASTE TESTER by Negrito Cam M.D.
[2025-07-01 09:40] LABS: Hematocrit 39.1 % (37.0-47.0); Hemoglobin 12.8 g/dL (12.0-15.0); Immature Granulocyte Percent A 0.4 % (0-0.5); Lymphocytes Absolute Auto 2.64 K/mm3 (0.9-3.2); Mean Corpuscular HGB Conc 32.7 g/dl (32-36); Mean Corpuscular Hemoglobin 27.6 pg (26-34); Mean Corpuscular Volume 84.4 fl (80-100); Nucleated Red Blood Cells Absolute Auto 0.000 K/mm3 (0.0-0.012); Nucleated Red Blood Cells Perc 0.0 % (0.0-0.2); Platelet Count Result 365 k/mm3 (150-375); Red Blood Count 4.63 M/mm3 (4.2-5.4); White Blood Count 9.9 K/mm3 (4.5-10.0)
[2025-07-01 09:43] LABS: INR 1.0; Prothrombin Time 13.2 Seconds (11.1-14.7)
[2025-07-01 09:44] LABS: Alanine Aminotransferase 12 U/L (6-35); Albumin Level 4.6 g/dL (3.5-5.1); Alkaline Phosphatase 71 U/L (38-126); Anion Gap 15 mmol/L (4-12); Aspartate Amino Transferase 23 U/L (14-36); Bilirubin,Total 0.4 mg/dL (0.2-1.3); Blood Urea Nitrogen 23 mg/dL (7-17); Calcium 8.9 mg/dL (8.4-10.2); Carbon Dioxide 20 mmol/L (22-30); Chloride 105 mmol/L (98-107); Estimated Glomerular Filt Rate > 60; Glucose 148 mg/dL (65-110); Lipase 85 U/L (23-300); Partial Thromboplastin Time 28.6 Seconds (22.3-36.8); Potassium 4.4 mmol/L (3.4-5.0); Sodium 140 mmol/L (137-145); Total Protein 7.8 g/dL (6.3-8.2)
[2025-07-01 09:46] VITALS: BP 135/85; PULSE 87; RESP 16; TEMP 36.5; O2SAT 100
[2025-07-01 09:55] LABS: Troponin I < 0.012 ng/mL (0.000-0.034)
[2025-07-01 10:28] VITALS: BP 142/68; PULSE 86; RESP 18; O2SAT 99
[2025-07-01] MEDS: ASPIRIN 81 MG CHEWABLE TABLET 324 MG PO (11:33)
--- NOTE | 2025-07-01 12:24 | ECG_ITS ---
Test Date: 2025-07-01 13:04:39 Measurements Intervals [place] Rate: 79 P: 34 [place]: 147 QRS: 1 QRSD: 95 T: 8 QT: 363 QTc: 418 Interpretive Statements SINUS RHYTHM POSSIBLE ANTERIOR MYOCARDIAL INFARCTION , OF INDETERMINATE AGE [30 ms Q WAVE IN V3/V4, OR R < 0.2 mV IN V4] NONSPECIFIC T-WAVE ABNORMALITY ABNORMAL ECG Electronically Signed On 07-01-2025 17:17:59 [employer] by Negrito Cam M.D.
--- NOTE | 2025-07-01 12:27 | ED.GENADULT ---
HPI - General Adult General Chief complaint: Chest Pain Stated complaint: CP Time Seen by Provider: 07/01/25 12:06 History of Present Illness HPI narrative: 49-year-old female presented emergency department for evaluation for left-sided chest pain. Patient states she has had the left upper quadrant and left lower chest pain for approximately 1 month. Patient states pain is similar to her previous gastric ulcers. Pain does take omeprazole. Patient has not had follow-up with primary care physician or with GI. Patient denies any prior cardiac history but does have history of hypertension and diabetes. Patient also has history of bipolar disorder and is undergoing a severe depression due to the of her father approximately 2 months ago. Patient is following up with a nurse practitioner at [place]. Page denies any prior history of PE or DVT or CO. patient denies any hematemesis or melena Related Data Home Medications ?Medication ?Instructions ?Recorded ?Confirmed ?Last Taken ?Type bupropion HCl 150 mg 24 hr tablet, 150 mg PO DAILY 02/19/25 07/01/25 05/28/25 History extended release hydroxyzine HCl 25 mg tablet 25 mg PO DAILY 02/19/25 07/01/25 05/28/25 History metformin 1,000 mg tablet 1,000 mg PO BID 02/19/25 07/01/25 04/22/25 History omeprazole magnesium 20 mg 40 mg PO DAILY 02/19/25 07/01/25 04/22/25 History tablet,delayed release (Prilosec OTC) rosuvastatin 5 mg tablet 5 mg PO HS 02/19/25 07/01/25 04/22/25 History sertraline 50 mg tablet 50 mg PO DAILY 02/19/25 07/01/25 05/28/25 History terbinafine HCl 250 mg tablet 250 mg PO HS 02/19/25 07/01/25 07/01/25 17:52 History atenolol 25 mg tablet 25 mg PO DAILY 03/11/25 07/01/25 05/28/25 History Allergies Allergy/AdvReac Type Severity Reaction Status Date / Time No Known Allergies Allergy Verified 06/16/25 14:32 Review of Systems Review of Systems: All systems reviewed & are unremarkable except as noted in HPI and below PMFSH Past Medical History Medical History (Updated 07/01/25 @ 20:37 by Erasmo Hines MD) Bipolar disorder Diabetes mellitus GAURAV (obstructive sleep apnea) Hypertension Surgical History Surgical History (Updated 06/16/25 @ 14:35 by Eve Collins MA) Incarcerated incisional hernia robotic assisted incarcerated incisional hernia repair x3 total defect length measuring 14 x 7 cm with mesh, extensive lysis of adhesions of [address] Mckenzie 05/28/25 Family History Family History Father Hypertension Diabetes mellitus Mother Hypertension Diabetes mellitus Social History Social History (Updated 03/11/25 @ 08:42 by BILLY Garcia) Smoking status: Never smoker Alcohol intake: never Substance use: never Substance use type: does not use Do You Feel Safe in your Home?: Yes Lack of Transportation: No Lack of Food: Never True Current Housing: I Have Housing Concerned About Future Housing: No Difficulty Paying Gas/Electric Bills: No Difficulty Paying for Meds: No Currently Unemployed: No Education: High School Diploma/GED Difficulty w/ Childcare or Family Care: No Living arrangements: with family Spiritual care concerns: No Exam Narrative: APPEARANCE: Well appearing, no pain, no distress, well-nourished. HEAD: normocephalic, atraumatic. EYES: PERRLA/EOMI, conjunctivae clear. NOSE: Normal no drainage EARS:TMS clear with good light reflex. THROAT: Pharynx clear, no exudate. NECK: Supple. No adenopathy, no masses. RESPIRATORY: Airway patent, respirations nonlabored. Clear to auscultation bilaterally, no rales, rhonchi, wheezing. CARDIOVASCULAR: Regular rate and rhythm without murmurs rubs or gallops. ABDOMINAL: Soft, nontender, nondistended, normal bowel sounds MUSCULOSKELETAL: Moves all extremities. Strength/ROM intact, No edema, No calf tenderness. NEURO: Alert. Cranial nerves II through XII intact. Good gait. Good coordination SKIN: Warm, dry. Normal Color PSYCHIATRIC: Flat affect Course Vital Signs Vital signs: Vital Signs Temperature 97.7 F 07/01/25 09:46 Pulse Rate 87 07/01/25 09:46 Respiratory Rate 16 07/01/25 09:46 Blood Pressure 135/85 07/01/25 09:46 Pulse Oximetry 100 07/01/25 09:46 Oxygen Delivery Room Air 07/01/25 09:46 Temperature 98.9 F 07/01/25 18:23 Pulse Rate 88 07/01/25 18:23 Respiratory Rate 17 07/01/25 18:23 Blood Pressure 126/68 07/01/25 18:23 Pulse Oximetry 97 07/01/25 18:23 Oxygen Delivery Room Air 07/01/25 10:27 Medical Decision Making MDM Narrative Medical decision making narrative: 49-year-old female present to the emergency department for evaluation for increased left upper quadrant pain. Patient does have history of gastritis symptoms are consistent with out. Patient was treated with a GI cocktail and symptoms did resolve. Patient is currently afebrile with no leukocytosis hemoglobin of 12.8. Patient has an INR of 1.0. No significant acute abnormalities on her CMP patient had negative serial troponins. Lipase was negative. Chest x-ray shows no acute cardiopulmonary abnormality. EKG shows normal sinus rhythm with no evidence of acute STEMI. On re-evaluation patient does admit to having feelings of hopelessness and suicidal thoughts including a plan to slit her throat with a knife. Patient reports she does have access to a knife. Patient is willing to stay and talk to a crisis counselor. Patient is medically cleared for evaluation by crisis. Patient is medically cleared for transportation inpatient psychiatric hospitalization as needed. At time of sign out patient is pending placement Differential Diagnosis Differential Diagnosis: Gastritis, colitis, ACS, depression Vital Signs Vital Signs: Vital Signs Temperature 97.7 F 07/01/25 09:46 Pulse Rate 87 07/01/25 09:46 Respiratory Rate 16 07/01/25 09:46 Blood Pressure 135/85 07/01/25 09:46 Pulse Oximetry 100 07/01/25 09:46 Oxygen Delivery Room Air 07/01/25 09:46 Temperature 98.9 F 07/01/25 18:23 Pulse Rate 88 07/01/25 18:23 Respiratory Rate 17 07/01/25 18:23 Blood Pressure 126/68 07/01/25 18:23 Pulse Oximetry 97 07/01/25 18:23 Oxygen Delivery Room Air 07/01/25 10:27 Lab Data Lab results reviewed: Yes I reviewed the patient's lab results. 07/01/25 09:25 07/01/25 09:25 Labs: Lab Results 11/19/25 11/19/25 11/19/25 Range/Units 09:25 12:29 14:10 WBC 9.9 (4.5-10.0) K/mm3 RBC 4.63 (4.2-5.4) M/mm3 Hgb 12.8 (12.0-15.0) g/dL Hct 39.1 (37.0-47.0) % MCV 84.4 (80-100) fl MCH 27.6 (26-34) pg MCHC 32.7 (32-36) g/dl RDW 12.9 (11.5-14.5) % Plt Count 365 (150-375) k/mm3 MPV 9.1 (7.4-10.4) fl Immature Gran % (Auto) 0.4 (0-0.5) % Neut % (Auto) 59.0 (45.5-73.1) % Lymph % (Auto) 26.7 (18.3-44.2) % [facility] % (Auto) 5.0 (2.6-8.5) % Eos % (Auto) 8.2 H (0-4.4) % Baso % (Auto) 0.7 (0.2-1.2) % Lymph # (Auto) 2.64 (0.9-3.2) K/mm3 [facility] # (Auto) 0.5 (0.1-0.6) K/mm3 Eos # (Auto) 0.8 H (0-0.3) K/mm3 Baso # (Auto) 0.1 (0.0-0.1) K/mm3 Abs Immat Gran (auto) 0.04 H (0.00-0.031) K/mm3 Absolute Neuts (auto) 5.8 (1.3-6.7) K/mm3 Absolute Nucleated RBC 0.000 (0.0-0.012) K/mm3 Nucleated RBC % 0.0 (0.0-0.2) % PT 13.2 (11.1-14.7) Seconds INR 1.0 APTT 28.6 (22.3-36.8) Seconds D-Dimer 0.43 (<0.48) ug/mL Sodium 140 (137-145) mmol/L Potassium 4.4 (3.4-5.0) mmol/L Chloride 105 (98-107) mmol/L Carbon Dioxide 20 L (22-30) mmol/L Anion Gap 15 H (4-12) mmol/L BUN 23 H (7-17) mg/dL Creatinine 0.79 (0.7-1.0) mg/dL Estim Creat Clear Calc Not Reportable Estimated GFR > 60 (59 - ) Glucose 148 H (65-110) mg/dL Calcium 8.9 (8.4-10.2) mg/dL Total Bilirubin 0.4 (0.2-1.3) mg/dL AST 23 (14-36) U/L ALT 12 (6-35) U/L Alkaline Phosphatase 71 (38-126) U/L Troponin I < 0.012 < 0.012 (0.000-0.034) ng/mL Total Protein 7.8 (6.3-8.2) g/dL Albumin 4.6 (3.5-5.1) g/dL Lipase 85 (23-300) U/L TSH (0.465-4.680) uIU/mL Urine Color Yellow (Yellow) Urine Appearance Clear (Clear) Urine pH 5.0 (5.0-9.0) Ur Specific [place] 1.029 (1.001-1.035) Urine Protein Negative (Negative) mg/dL Urine Glucose (UA) Negative (Negative) mg/dL Urine Ketones 2+ H (Negative) mg/dL Ur Blood (Man) Negative (Negative) Urine Nitrate Negative (Negative) Urine Bilirubin Negative (Negative) Urine Urobilinogen 1.0 (<2.0) mg/dL Leukocyte Esterase Rfl Trace H (Negative) DANAE/UL Urine RBC 0-2 (0-2) /hpf Urine WBC 0-5 (0-3) /hpf Ur Squamous Epith Cells None seen (Few) /hpf Urine Bacteria None seen /hpf Urine Casts 0-2 Urine Test Negative Urine Opiates Screen Negative (Negative) Urine Methadone Screen Negative (Negative) Ur Barbiturates Screen Negative (Negative) Ur Phencyclidine Scrn Negative (Negative) Ur Amphetamine Screen Negative (Negative) U Benzodiazepines Scrn Negative (Negative) Urine Cocaine Screen Negative (Negative) U Cannabinoids Screen Negative (Negative) Ethyl Alcohol (<10) mg/dL Influenza A (RT-PCR) Negative (Negative) Influenza B (RT-PCR) Negative (Negative) RSV (RT-PCR) Negative (Negative) SARS-CoV-2 RNA (RT-PCR) Negative (Negative) 07/01/25 Range/Units 15:28 WBC (4.5-10.0) K/mm3 RBC (4.2-5.4) M/mm3 Hgb (12.0-15.0) g/dL Hct (37.0-47.0) % MCV (80-100) fl MCH (26-34) pg MCHC (32-36) g/dl RDW (11.5-14.5) % Plt Count (150-375) k/mm3 MPV (7.4-10.4) fl Immature Gran % (Auto) (0-0.5) % Neut % (Auto) (45.5-73.1) % Lymph % (Auto) (18.3-44.2) % [facility] [place] % (Auto) (2.6-8.5) % Eos % (Auto) (0-4.4) % Baso % (Auto) (0.2-1.2) % Lymph # (Auto) (0.9-3.2) K/mm3 [facility] [place] # (Auto) (0.1-0.6) K/mm3 Eos # (Auto) (0-0.3) K/mm3 Baso # (Auto) (0.0-0.1) K/mm3 Abs Immat Gran (auto) (0.00-0.031) K/mm3 Absolute Neuts (auto) (1.3-6.7) K/mm3 Absolute Nucleated RBC (0.0-0.012) K/mm3 Nucleated RBC % (0.0-0.2) % PT (11.1-14.7) Seconds INR APTT (22.3-36.8) Seconds D-Dimer (<0.48) ug/mL Sodium (137-145) mmol/L Potassium (3.4-5.0) mmol/L Chloride (98-107) mmol/L Carbon Dioxide (22-30) mmol/L Anion Gap (4-12) mmol/L BUN (7-17) mg/dL Creatinine (0.7-1.0) mg/dL Estim Creat Clear Calc Estimated GFR (59 - ) Glucose (65-110) mg/dL Calcium (8.4-10.2) mg/dL Total Bilirubin (0.2-1.3) mg/dL AST (14-36) U/L ALT (6-35) U/L Alkaline Phosphatase (38-126) U/L Troponin I < 0.012 (0.000-0.034) ng/mL Total Protein (6.3-8.2) g/dL Albumin (3.5-5.1) g/dL Lipase (23-300) U/L TSH 0.808 (0.465-4.680) uIU/mL Urine Color (Yellow) Urine Appearance (Clear) Urine pH (5.0-9.0) Ur Specific [place] (1.001-1.035) Urine Protein (Negative) mg/dL Urine Glucose (UA) (Negative) mg/dL Urine Ketones (Negative) mg/dL Ur Blood (Man) (Negative) Urine Nitrate (Negative) Urine Bilirubin (Negative) Urine Urobilinogen (<2.0) mg/dL Leukocyte Esterase Rfl (Negative) DANAE/UL Urine RBC (0-2) /hpf Urine WBC (0-3) /hpf Ur Squamous Epith Cells (Few) /hpf Urine Bacteria /hpf Urine Casts Urine Test Urine Opiates Screen (Negative) Urine Methadone Screen (Negative) Ur Barbiturates Screen (Negative) Ur Phencyclidine Scrn (Negative) Ur Amphetamine Screen (Negative) U Benzodiazepines Scrn (Negative) Urine Cocaine Screen (Negative) U Cannabinoids Screen (Negative) Ethyl Alcohol < 10 (<10) mg/dL Influenza A (RT-PCR) (Negative) Influenza B (RT-PCR) (Negative) RSV (RT-PCR) (Negative) SARS-CoV-2 RNA (RT-PCR) (Negative) Imaging Data My impression: Chest x-ray: No acute cardiopulmonary abnormality Radiologist's impression: Impressions Chest X-Ray 07/01/25 09:43 Impression: No acute cardiopulmonary abnormality. Discharge Plan Discharge Clinical Impression: Gastritis, Depression with suicidal ideation Patient Disposition: Psychiatric Hosp Condition: Stable Patient Language: Bengali Prescriptions: No Action atenolol 25 mg tablet 25 mg PO DAILY bupropion HCl 150 mg tablet extended release 24 hr 150 mg PO DAILY hydroxyzine HCl 25 mg tablet 25 mg PO DAILY metformin 1,000 mg tablet 1,000 mg PO BID rosuvastatin 5 mg tablet 5 mg PO HS sertraline 50 mg tablet 50 mg PO DAILY terbinafine HCl 250 mg tablet 250 mg PO HS omeprazole magnesium [Prilosec OTC] 20 mg tablet,delayed release (DR/EC) 40 mg PO DAILY hydrocodone-acetaminophen 5-325 mg tablet 1 tablet PO Q6H PRN (Reason: pain) Qty: 30 0RF docusate sodium [Colace] 100 mg capsule 100 mg PO BID Qty: 30 0RF Follow-up/Referrals: Elmer,ELADIO Gutierrez [Primary Care Provider, Unknown]
[2025-07-01] MEDS: BELLADONNA ALK/PHENOB ELIX 10 ML, MAG HYDROX/ALUMINUM HYD/SIMETH 30 ML, LIDOCAINE 2% VI... PO (12:49)
[2025-07-01] MEDS: PANTOPRAZOLE SODIUM IV 40 MG VIAL 80 MG IV PUSH (12:49)
[2025-07-01 13:02] LABS: Troponin I < 0.012 ng/mL (0.000-0.034)
[2025-07-01 14:25] LABS: Add Urine Microscopic? YES; Appearance Urine Clear (Clear); Glucose Urine UA Negative (Negative); Leukocyte Esterase Ur Trace LEU/UL (Negative); Nitrate Urine Negative (Negative); Non Pathogenic Casts 0-2; Specific Grav Ur 1.029 (1.001-1.035)
[2025-07-01 14:32] LABS: Pregnancy On Board Control Positive
[2025-07-01 14:58] LABS: Cannabinoid Screen Urine Negative (Negative)
[2025-07-01 15:06] LABS: Influenza A QL RT-PCR Negative (Negative); Influenza B QL RT-PCR Negative (Negative); RSV RNA, RT-PCR Negative (Negative); SARS-CoV-2 RNA PCR Negative (Negative)
--- NOTE | 2025-07-01 15:23 | ECG_ITS ---
Test Date: 2025-07-01 15:30:49 Measurements Intervals [place] Rate: 88 P: 12 [place]: 147 QRS: -8 QRSD: 94 T: 1 QT: 368 QTc: 447 Interpretive Statements SINUS RHYTHM POSSIBLE ANTERIOR MYOCARDIAL INFARCTION , OF INDETERMINATE AGE [30 ms Q WAVE IN V3/V4, OR R < 0.2 mV IN V4] NONSPECIFIC T-WAVE ABNORMALITY ABNORMAL ECG Compared to ECG 07/01/2025 13:04:39 Myocardial infarct finding still present Electronically Signed On 07-01-2025 17:20:33 ROD FILLER by Negrito Cam M.D.
[2025-07-01 15:57] LABS: Troponin I < 0.012 ng/mL (0.000-0.034)
[2025-07-01] MEDS: LORazepam (*CRX) 1 MG TABLET PO (17:28)
--- NOTE | 2025-07-01 18:03 | PC.NURSE ---
spoke with Louise GOYAL from [facility], answered questions, Louise stated that they would continue evaluating and then get back with a decision on placement.
[2025-07-01 18:23] VITALS: BP 126/68; PULSE 88; RESP 17; TEMP 37.2; O2SAT 97
--- NOTE | 2025-07-01 18:35 | PC.NURSE ---
spoke to Eve GOYAL from [facility], requesting ETOH level, TSH level, chest xray results, copies of EKGs to be sent to their facility. TSH pending at this time
--- NOTE | 2025-07-01 19:03 | PC.NURSE ---
spoke with Marily GOYAL at [place] - updated them on vitals and patient condition. will call back after they discuss with their admitting
--- OUTSIDE RECORDS SUMMARY | 2025-07-01 19:13 | XMS_ITS | Data Portability ---
[facility] Address [address] [place] [address] Care Team Providers Care Scout Executive Name Role Phone RHODA CRISTOBAL Primary Care Provider Assessment No assessment recorded. Plan of Treatment Reminders Order Date Submit Date Provider Last Modified By Organization Details Last Modified Time Details Appointments ANY 15 2025 09:45A M RHODA CRISTOBAL PA-C Not available Not available Not available Lab lipid panel, serum 2024 025 [facility], [address], [place], [address], 05/27/2025 06:17:58 HbA1c (hemoglob in A1c), blood 2024 025 In-Office Order, Internal Use Only DO Not Attach Compendium DO Not Attach Compendium, Do Not Delete/merge, [id number] 05/26/2025 10:43:59 albumin/c reatinine , mass ratio, urine 2024 MAR[facility]LL [facility], [address], [place], [address], 05/27/2025 13:12:14 CMP, serum or plasma 2024 025 [facility], [address], [place], [address], 05/27/2025 06:17:59 lipase, serum or plasma 2024 025 [facility], [address], [place], [address], 05/27/2025 13:12:14 lipid panel, serum 2024 025 [facility], [address], [place], [address], 02/26/2025 06:17:56 HbA1c (hemoglob in A1c), blood 2024 025 In-Office Order, Internal Use Only DO Not Attach Compendium DO Not Attach Compendium, Do Not Delete/merge, [id number] 02/25/2025 11:21:49 albumin/c reatinine , mass ratio, urine 2024 025 [facility], [address], [place], [address], 02/26/2025 15:11:40 CMP, serum or plasma 2024 025 [facility], [address], [place], [address], 02/26/2025 06:17:56 lipase, serum or plasma 2024 025 [facility], [address], [place], [address], 02/26/2025 15:11:41 Referral None recorded. Procedures None recorded. Surgeries None recorded. Imaging None recorded. Medication Orders metformin 1,000 mg tablet 2024 [facility] [address], [address] [place], [address], 05/26/2025 10:44:17 rosuvasta tin 5 mg tablet 2024 025 [facility] [address], [address] [place], [address], 05/26/2025 10:44:19 atenolol 25 mg tablet 2024 025 [place] [address], [address] [place] [address], [address], 05/26/2025 10:44:15 atenolol 25 mg tablet 2024 025 [facility] [address], [address] [place] [address], [address], 04/08/2025 10:38:50 metformin 1,000 mg tablet 2024 025 [place] [address], [address] [place] [address], [address], 02/25/2025 11:21:57 atenolol 25 mg tablet 2024 025 [place] [address], [address] [place] [address], [address], 02/25/2025 11:21:55 lisinopri l 20 mg tablet 2024 025 [place] [address], [address] [place] [address], [address], 02/25/2025 11:04:10 lisinopri l 20 mg tablet 2024 025 [place] [address], [address] [place] [address], [address], 02/25/2025 11:04:00 Patient TargetsNo targets recorded. Patient Instructions Encounter Date Encounter Id Patient Instructions Last Modified By Organization Details Last Modified Time 10/23/2024 [id number] A healthy lifestyle: care instructions Not available 10/23/2024 09:04:33 learning about high blood pressure [email or web address] Not available 10/23/2024 09:04:33 dash diet: care instructions Not available 10/23/2024 09:04:33 12/03/2024 [id number] A healthy lifestyle: care instructions [email or web address] Not available 12/03/2024 09:24:56 learning about high blood pressure [email or web address] Not available 12/03/2024 09:23:40 02/25/2025 [id number] learning about type 2 diabetes [email or web address] Not available 02/25/2025 11:21:49 type 2 diabetes: care instructions [email or web address] Not available 02/25/2025 11:21:49 acute kidney injury: care instructions [email or web address] Not available 02/25/2025 11:21:49 A healthy lifestyle: care instructions [email or web address] Not available 02/25/2025 11:21:50 learning about high blood pressure [email or web address] Not available 02/25/2025 11:21:50 04/08/2025 [id number] A healthy lifestyle: care instructions [email or web address] Not available 04/08/2025 10:38:36 05/26/2025 [id number] A healthy lifestyle: care instructions [email or web address] Not available 05/26/2025 10:44:00 learning about type 2 diabetes [email or web address] Not available 05/26/2025 10:44:00 type 2 diabetes: care instructions [email or web address] Not available 05/26/2025 10:43:59 acute kidney injury: care instructions [email or web address] Not available 05/26/2025 10:44:00 A healthy lifestyle: care instructions [email or web address] Not available 05/26/2025 10:44:00 learning about high blood pressure [email or web address] Not available 05/26/2025 10:44:00 Reason for Referral None Reported. Results Created Date Observation Date Name Description Value Unit Range Abnormal Flag Note LastModifiedBy Organization Detail LastModifiedTime 02/26/2002/26/2025 LIPID PANEL cholesterol, total 135 mg/dL 100-19 9 Not Available [facility] ([facility]) [address] [facility], [place], [address], 02/26/2025 06:17:56 02/26/2002/26/2025 LIPID PANEL triglyceride s 171 mg/dL 0-149 above high normal Not Available [facility] ([facility]) [address] [facility] [address], [place], [address], 02/26/2025 06:17:56 02/26/20 25 02/26/2025 LIPID PANEL HDL cholesterol 52 mg/dL >39 Not Available [facility] ([facility]) [address] [place], [address], 02/26/2025 06:17:56 02/26/20 25 02/26/2025 LIPID PANEL VLDL cholesterol donell 28 mg/dL 5-40 Not Available [facility] ([facility]) [address] [place], [address], 02/26/2025 06:17:56 02/26/20 25 02/26/2025 LIPID PANEL LDL chol calc ([facility]) 55 mg/dL 0-99 Not Available [facility] ([facility]) [address] [place], [address], 02/26/2025 06:17:56 02/26/20 25 02/26/2025 COMP. METAB OLIC PANEL (14) glucose 117 mg/dL 70-99 above high normal Not Available [facility] ([facility]) [address] [place], [address], 02/26/2025 06:17:56 02/26/20 25 02/26/2025 COMP. METAB OLIC PANEL (14) BUN 6 mg/dL 6-24 Not Available [facility] ([facility]) [address] [place], [address], 02/26/2025 06:17:56 02/26/20 25 02/26/2025 COMP. METAB OLIC PANEL (14) creatinine 1.14 mg/dL 0.57-1 .00 above high normal Not Available [facility] ([facility]) [address] [place], [address], 02/26/2025 06:17:56 02/26/20 25 02/26/2025 COMP. METAB OLIC PANEL (14) eGFR 60 mL/mi n/1.7 3 >59 Not Available [facility] ([facility]) [address], [place], [address], 02/26/2025 06:17:56 02/26/20 25 02/26/2025 COMP. METAB OLIC PANEL (14) BUN/creatini ne ratio 5 9-23 below low normal Not Available [facility] ([facility]) [address] [place], [address], 02/26/2025 06:17:56 02/26/20 25 02/26/2025 COMP. METAB OLIC PANEL (14) sodium 142 mmol/ L 134-14 4 Not Available [facility] ([facility]) [address] [place], [address], 02/26/2025 06:17:56 02/26/20 25 02/26/2025 COMP. METAB OLIC PANEL (14) potassium 4.7 mmol/ L 3.5-5. 2 Not Available [facility] ([facility]) [address] [place], [address], 02/26/2025 06:17:56 02/26/20 25 02/26/2025 COMP. METAB OLIC PANEL (14) chloride 106 mmol/ L 96-106 Not Available [facility] ([facility]) [address] [facility] [place], [address], 02/26/2025 06:17:56 02/26/20 25 02/26/2025 COMP. METAB OLIC PANEL (14) carbon dioxide, total 20 mmol/ L 20-29 Not Available [facility] ([facility]) [address] [facility] [place], [address], 02/26/2025 06:17:56 02/26/20 25 02/26/2025 COMP. METAB OLIC PANEL (14) calcium 9.4 mg/dL 8.7-10 .2 Not Available [facility] ([place] [facility]) [address] [facility] [place], [address], 02/26/2025 06:17:56 02/26/20 25 02/26/2025 COMP. METAB OLIC PANEL (14) protein, total 6.5 g/dL 6.0-8. 5 Not Available [facility] ([facility]) [address], [place], [address], 02/26/2025 06:17:56 02/26/20 25 02/26/2025 COMP. METAB OLIC PANEL (14) albumin 4.1 g/dL 3.9-4. 9 Not Available [facility] ([facility]) [address] [facility] [address], [place], [address], 02/26/2025 06:17:56 02/26/20 25 02/26/2025 COMP. METAB OLIC PANEL (14) globulin, total 2.4 g/dL 1.5-4. 5 Not Available [facility] ([facility]) [address] [facility] [address], [place], [address], 02/26/2025 06:17:56 02/26/20 25 02/26/2025 COMP. METAB OLIC PANEL (14) bilirubin, total 0.2 mg/dL 0.0-1. 2 Not Available [facility] ([facility]) [address] [facility] [address], [place], [address], 02/26/2025 06:17:56 02/26/20 25 02/26/2025 COMP. METAB OLIC PANEL (14) alkaline phosphatase 85 IU/L 44-121 Not Available [facility] ([facility]) [address] [facility] [address], [place], [address], 02/26/2025 06:17:56 02/26/20 25 02/26/2025 COMP. METAB OLIC PANEL (14) AST (SGOT) 8 IU/L 0-40 Not Available [facility] ([facility]) [address] [facility] [address], [place], [address], 02/26/2025 06:17:56 07/16/20 25 02/26/2025 COMP. METAB OLIC PANEL (14) ALT (SGPT) 12 IU/L 0-32 Not Available [facility] ([facility]) [address] [facility] [address], [place], [address], 02/26/2025 06:17:56 02/26/20 25 02/26/2025 ALBUM IN/CR EATIN INE RATIO ,URIN E creatinine, urine 161.1 mg/dL notest ab. Not Available [facility] ([facility]) [address] [place], [address], 02/26/2025 15:11:40 02/26/20 25 02/26/2025 ALBUM IN/CR EATIN INE RATIO ,URIN E albumin, urine 15.9 ug/mL notest ab. Not Available [facility] ([facility]) [address] [place], [address], 02/26/2025 15:11:40 02/26/20 25 02/26/2025 ALBUM IN/CR EATIN INE RATIO ,URIN E alb/creat ratio 10 mg/g_ creat 0-29 Ciarra l: 0 - 29 Moder ately incre ased: 30 - 300 Sever yareli incre ased: >300 Not Available [facility] ([facility]) [address] [facility] [address], [place], [address], 02/26/2025 15:11:40 02/26/20 25 02/26/2025 LIPAS E lipase 41 U/L 14-72 Not Available [facility] ([facility]) [address] [place], [address], 02/26/2025 15:11:41 02/26/20 25 02/25/2025 HbA1c (hemo globi n A1c), blood HbA1C 6.5 % Not Available In-Office Order Internal Use Only DO Not Attach Compendium DO Not Attach Compendium, Do Not Delete/merge, [id number] 02/25/2025 10:52:34 05/26/2005/26/2025 LIPID PANEL cholesterol, total 160 mg/dL 100-19 9 Not Available [facility] [address] [place] [address], [address], 05/27/2025 06:17:58 05/26/2005/26/2025 LIPID PANEL triglyceride s 127 mg/dL 0-149 Not Available [facility] [address] [place] [address], [address], 05/27/2025 06:17:58 05/26/2005/26/2025 LIPID PANEL HDL cholesterol 61 mg/dL 40-999 Not Available [facility] [address] [place] [address], [address], 05/27/2025 06:17:58 05/26/2005/26/2025 LIPID PANEL VLDL cholesterol donell 25 mg/dL 5-40 Not Available [facility] [address] [place] [address], [address], 05/27/2025 06:17:58 05/26/2005/26/2025 LIPID PANEL LDL chol calc ([facility]) 93 mg/dL 0-99 Not Available [facility] [address] [place] [address], [address], 05/27/2025 06:17:58 05/26/2005/26/2025 COMP. METAB OLIC PANEL (14) glucose 132 mg/dL 70-99 above high normal Not Available [facility] [address] [place] [address], [address], 05/27/2025 06:17:59 05/26/2005/26/2025 COMP. METAB OLIC PANEL (14) BUN 18 mg/dL 6-24 Not Available [facility] [address] [place] [address], [address], 05/27/2025 06:17:59 05/26/2005/26/2025 COMP. METAB OLIC PANEL (14) creatinine 0.88 mg/dL 0.76-1 .27 Not Available [facility] [address] [place], [address], 05/27/2025 06:17:59 05/26/2005/26/2025 COMP. METAB OLIC PANEL (14) eGFR 82 >=60 Units for eGFR value s are mL/mi n/1.7 3 The eGFR Calcu latio n has not been valid ated for patie nts under the age of 18. If test resul ts are displ ayed for a patie nt under the age of 18, disre inés that value . Not Available [facility] [address] [place] [address], [address], 05/27/2025 06:17:59 05/26/2005/26/2025 COMP. METAB OLIC PANEL (14) BUN/creatini ne ratio 21 9-23 Not Available [facility] [address] [place] [address], [address], 05/27/2025 06:17:59 05/26/2005/26/2025 COMP. METAB OLIC PANEL (14) sodium 143 mmol/ L 134-14 4 Not Available [facility] [address] [place] [address], [address], 05/27/2025 06:17:59 05/26/2005/26/2025 COMP. METAB OLIC PANEL (14) potassium 4.6 mmol/ L 3.5-5. 9 Not Available [facility] [address] [place], [address], 05/27/2025 06:17:59 05/26/2005/26/2025 COMP. METAB OLIC PANEL (14) chloride 101 mmol/ L 96-106 Not Available [facility] [address] [place] [address], [address], 05/27/2025 06:17:59 05/26/2005/26/2025 COMP. METAB OLIC PANEL (14) carbon dioxide, total 24 mmol/ L 20-29 Not Available [facility] [address] [place], [address], 05/27/2025 06:17:59 05/26/2005/26/2025 COMP. METAB OLIC PANEL (14) calcium 9.5 mg/dL 8.7-10 .2 Not Available [facility] [address] [place], [address], 05/27/2025 06:17:59 05/26/2005/26/2025 COMP. METAB OLIC PANEL (14) protein, total 7.5 g/dL 6.0-8. 5 Not Available [facility] [address] [place], [address], 05/27/2025 06:17:59 05/26/2005/26/2025 COMP. METAB OLIC PANEL (14) albumin 4.7 g/dL 3.9-4. 9 Not Available [facility] [address] [place], [address], 05/27/2025 06:17:59 05/26/2005/26/2025 COMP. METAB OLIC PANEL (14) globulin, total 2.8 g/dL 1.5-4. 5 Not Available [facility] [address] [place], [address], 05/27/2025 06:17:59 05/26/2005/26/2025 COMP. METAB OLIC PANEL (14) A/G ratio 2.0 1.2-2. 2 Not Available [facility] [address] [place], [address], 05/27/2025 06:17:59 05/26/2005/26/2025 COMP. METAB OLIC PANEL (14) bilirubin, total 0.3 mg/dL 0.0-1. 2 Not Available [facility] [address] [place], [address], 05/27/2025 06:17:59 05/26/2005/26/2025 COMP. METAB OLIC PANEL (14) alkaline phosphatase 78 IU/L 44-121 Not Available [facility] [address] [place], [address], 05/27/2025 06:17:59 05/26/2005/26/2025 COMP. METAB OLIC PANEL (14) AST (SGOT) 8 U/L 0-40 Not Available [facility] [address] [place] [address], [address], 05/27/2025 06:17:59 05/26/2005/26/2025 COMP. METAB OLIC PANEL (14) ALT (SGPT) 8 IU/L 0-32 Not Available [facility] [address] [place], [address], 05/27/2025 06:17:59 05/26/2005/27/2025 ALBUM IN/CR EATIN INE RATIO ,URIN E creatinine, urine 208.5 mg/dL notest ab. Not Available [facility] ([facility]) [address] [place], [address], 05/27/2025 13:12:14 05/26/2005/27/2025 ALBUM IN/CR EATIN INE RATIO ,URIN E albumin, urine 26.3 ug/mL notest ab. Not Available [facility] ([facility]) [address] [place], [address], 05/27/2025 13:12:14 05/26/2005/27/2025 ALBUM IN/CR EATIN INE RATIO ,URIN E alb/creat ratio 13 mg/g_ creat 0-29 Ciarra l: 0 - 29 Moder ately incre ased: 30 - 300 Sever yareli incre ased: >300 Not Available [facility] ([facility]) [address] [facility] [address], [place], [address], 05/27/2025 13:12:14 05/26/2005/27/2025 LIPAS E lipase 31 U/L Not Available [facility] ([facility]) [address] [facility] [address], [place], [address], 05/27/2025 13:12:14 05/26/2005/26/2025 HbA1c (hemo globi n A1c), blood HbA1C 6.3 % Not Available In-Office Order Internal Use Only DO Not Attach Compendium DO Not Attach Compendium, Do Not Delete/merge, [id number] 05/26/2025 10:15:50 02/20/2002/19/2025 CT, abdom en + pelvi s, w/o contr ast No observ ation record ed. [address], [place], [address], 03/02/2025 16:17:34 Result Notes None recorded. Problems Name Problem SNOMED Code Status Onset Date Resolution Date Notes Provider Name and Address Organization Details Recorded Time Anxiety 31430884 Active Not Available [facility] 3 12:52:34 Depressive disorder 81428406 Active Not Available [facility] 3 12:52:34 Bipolar disorder 90753788 Active Not Available [facility] 3 12:52:34 Uncontrolled type 2 diabetes mellitus 088702775 Active 2023 RHODA CRISTOBAL PA-C Attn: Accounting ,[address] [place], [address] , [facility] 4 15:10:32 Type 2 diabetes mellitus 13067385 Active 2024 RHODA CRISTOBAL PA-C Attn: Accounting ,[address] [facility], [place], [address] , [place] [facility] 5 09:33:00 Essential hypertension 99410494 Active 2024 RHODA CRISTOBAL PA-C Attn: Accounting ,[address] [facility], [place], [address] , [place] [facility] 5 09:38:41 Mixed hyperlipidemi a 249324254 Active 2024 RHODA CRISTOBAL PA-C Attn: Accounting ,[address] [facility], [place], [address] , [place] [facility] 5 11:23:39 Drug-induced acute pancreatitis 318324164 Active 2024 RHODA CRISTOBAL PA-C Attn: Accounting ,[address] [facility], [place], [address] , [place] [facility] 5 10:19:29 Disease 52927851 Active 2024 RHODA CRISTOBAL PA-C Attn: Accounting ,[address] [facility], [place], [address] , [place] [facility] 5 10:19:36 Problem Notes None recorded. Medical Equipment None Reported. Allergies No known drug allergies Medications Name Sig Start Date Stop Date Status Note LastModified by Organization Details LastModified Time clonazepa m odt 0.25 mg tbdp 07/25 completed Not Available Not Available Not Available citalopra m hydrobrom jessie 40 mg tabs 07/25 completed Not Available Not Available Not Available citalopra m tab 40mgcital opram hydrobrom jessie 07/25 completed Not Available Not Available Not Available clonazepa m tab 0.5mgclon azepam 07/25 completed Not Available Not Available Not Available OneTouch Ultra Blue Test Strips USE TO CHECK BLOOD SUGAR ONCE DAILY 2023 active Not Available Not Available Not Avai lable clonazepa m 0.5 mg tabs 07/25 completed Not Available Not Available Not Available bupropion HCl SR 150 mg tablet,12 hr sustained -release 12/05 completed Not Available Not Available Not Available citalopra m 40 mg tablet TAKE ONE TABLET BY MOUTH ONE TIME DAILY 07/25 completed Not Available Not Available Not Available trazodone 50 mg tablet active Not Available Not Available Not Available hydrocodo ne 5 mg-acetam inophen 325 mg tablet TAKE 1 TABLET BY MOUTH EVERY 6 HOURS NEEDED FOR PAIN active Not Available Not Available No t Available fluconazo le 200 mg tablet TAKE [...] lable terbinafi ne HCl 250 mg tablet Take 1 tablet by mouth once daily 2024 active Not Available Not Available Not Avai lable Novolin R Regular U-100 Insulin 100 unit/mL [...] completed Not Available Not Available Not Available docusate sodium 100 mg capsule TAKE 1 CAPSULE BY MOUTH TWICE DAILY active Not Available Not Available No t Available sertralin e 25 mg tablet 07/25 [...] Updated DateTime 5 162.56 cm 34.6 kg/m2 80323.9 4 g 98.4 [degF] 99 % 99 % 100 /min 130/80 mm[Hg] Mee Haider MA [facility] 5 08:50:53 Date Recorded Body height Body mass index (BMI) Body weight Body temperature Oxygen saturation Oxygen saturation in Arterial blood by Pulse oximetry Heart rate Systolic And Diastolic Provider Name and Address Organization Details Last Updated DateTime 5 162.56 cm 33.1 kg/m2 95960.2 5 g 98.6 [degF] 97 % 97 % 110 /min 124/76 mm[Hg] Mee Haider MA [facility] 5 08:55:49 Date Recorded Body height Body mass index (BMI) Body weight Oxygen saturation Oxygen saturation in Arterial blood by Pulse oximetry Heart rate Body temperature Systolic And Diastolic Provider Name and Address Organization Details Last Updated DateTime 5 162.56 cm 30.2 kg/m2 18549.2 6 g 98 % 98 % 92 /min 98.4 [degF] 124/76 mm[Hg] Su Pickett MA [facility] 5 10:33:48 Date Recorded Body height Body mass index (BMI) Body weight Oxygen saturation Oxygen saturation in Arterial blood by Pulse oximetry Heart rate Body temperature Systolic And Diastolic Provider Name and Address Organization Details Last Updated DateTime 5 162.56 cm 29 kg/m2 10983.1 1 g 98 % 98 % 81 /min 97.6 [degF] 122/80 mm[Hg] Su Pickett MA [facility] 5 10:05:21 Date Recorded Body height Body mass index (BMI) Body weight Oxygen saturation Oxygen saturation in Arterial blood by Pulse oximetry Heart rate Body temperature Systolic And Diastolic Provider Name and Address Organization Details Last Updated DateTime 5 162.56 cm 28.8 kg/m2 35572.5 2 g 98 % 98 % 86 /min 98.2 [degF] 120/76 mm[Hg] Rebeca May [facility] 5 10:08:52 Social History Question Answer Notes LastModified by Organizat ion Details LastModified Time Tobacco Smoking Status Never Smoker OLIVIA Sol, [facility] 01/17/2023 11:12:30 Do You Have An Advance [...] Or The Highest Degree You Have Received? BP26022-6 Information not available 05/23/2023 Are There Any Guns Present In Your Home? No Information not available 05/23/2023 What Was The Date Of Your Most Recent Tobacco Screening? 05/26/2025 [email or web address] Information not available 05/26/2025 What Is Your [...] anxious, or unable to sleep at night)? [id number] Information not available 01/17/2023 Family History Nothing Reported. Medical History Condition Response Coronary Artery Disease N Other N Atrial Fibrillation N High Blood Pressure N Depression Y COPD N Blood Clots N Anxiety Disorder Y Muscle, Joint, or Bone Problems N Acid Reflux (GERD) Y Cancer N Stroke N High Cholesterol Y Liver Disease N Headaches N Kidney or Bladder Problems N Thyroid Problems N GI Problems N Skin Problems N Anemia N Heart Attack (ND) N Diabetes Y Seizures/Epilepsy N Asthma N Allergies N Hepatitis N Osteoporosis N Heart Failure N Gynecological [...] PF, 30 mcg/0.3 mL dose 1 completed [place]IA [place], [place] [facility] 01/17/2023 11:11:28 COVID-19, mRNA, LNP-S, PF, 30 mcg/0.3 mL dose 1 completed [place] [facility] 01/17/2023 11:11:28 Pneumococcal conjugate PCV20, polysaccharide [id number] conjugate, adjuvant, PF 4 completed OLIVIA Benitez, [place] [facility] 06/11/2024 14:55:43 Past Encounters Encounter ID Performer Location Encounter Start Date Encounter Closed Date Diagnosis/Indication Diagnosis SNOMED-CT Code Diagnosis ICD10 Code Diagnosis IMO Codes Diagnosis Note [id number] MD Mitchel Sands (Adult Med) [address] [place] [id number] 07/16/2014 17:23:50 07/16/2014 18:08:20 Anxiety 89226929 Depressive disorder 50231347 History of cerebrovascular accident 702217144 [id number] MD Mitchel Sands (Adult Med) [address] [place] [id number] 01/08/2015 12:20:10 01/08/2015 17:52:57 Anxiety 99335931 Depressive disorder 64996689 History of cerebrovascular accident 062762284 [id number] MD Mitchel Sands (Adult Med) [address] [place] [id number] 03/16/2015 14:43:22 03/16/2015 18:14:53 Anxiety 14339298 Depressive disorder 49582959 History of cerebrovascular accident 641352137 [id number] MD Mitchel Sands (Adult Med) [address] [place] [id number] 06/07/2015 15:30:58 06/10/2015 10:18:09 Depressive disorder 56674307 F32.9 History of cerebrovascular accident 744516450 Z86.73 Anxiety 06583764 F41.9 [id number] MD Mitchel Sands (Adult Med) [address] [place] [id number] 09/21/2015 15:02:45 09/21/2015 16:15:10 Anxiety 12325163 F41.9 Depressive disorder 3548 9007 F32.9 Bipolar disorder 7401003 4 F31.9 [id number] MD Mitchel Sands (Adult Med) [address] [place] [address] [phone] 07/25/2017 13:57:19 07/25/2017 15:51:55 Morbid obesity 952409272 E66.01 Diet, exercise and lose weight . Bipolar disorder 2020688 4 F31.9 Under the care at behavior health clinic at [facility]. Depressive disorder 3548 9007 F32.9 Anxiety 62622394 F41.9 Under the care of behavior clinic of [facility]. [id number] MD Mitchel Sands (Adult Med) [address] [place] [address] [phone] 0 08/09/2018 12:28:50 08/09/2018 13:45:55 Adult health examination 318155461 Z00.00 Morbid obesity 446148854 E66.01 Diet, exercise and lose weight . Screening mammography 24 505645 Z12.31 Patient declines. Screening for malignant neoplasm of cervix 165210264 Z12.4 She declines. [id number] MD Mitchel Sands (Adult Med) [address] [place] [address] [phone] 01/07/2019 11:10:15 01/08/2019 09:12:19 Bipolar disorder 08753221 F31.9 Under the care at [facility] at [facility]. Screening mammography 24 780726 Z12.31 Patient declines. [id number] MD Mitchel Sands (Adult Med) [address] [place] [address] [phone] 0 01/17/2023 10:45:06 01/18/2023 12:54:01 Type 2 diabetes mellitus 28154911 E11.9 Mother is type 2 DM, just yang told to have DM few weeks ago at [facility]. blood sugar is 437 mg% at this office, will give 20 units regular insulin subcut today, will start metformin, and F/U in one month. she agreed to try. Advised to watch diabetic diet, exercise and lose weight. Bipolar disorder 8638854 4 F31.9 Under the care at [facility] at [facility]. Obesity 071750135 E66.9 [id number] MD Mitchel Sands (Adult Med) [address] [place] [address] [phone] 02/20/2023 11:38:03 02/22/2023 13:46:03 Type 2 diabetes mellitus 24108880 E11.9 Mother is type 2 DM, just yang told to have DM few weeks ago at [facility]. blood sugar is 437 mg% at this office, will give 20 units regular insulin subcut today, will start metformin, and F/U in one month. she agreed to try. Advised to watch diabetic diet, exercise and lose weight. Onychomyco sis of toenails 430794811 B35.1 Discussed with patient , she agreed to try med first . Obesity 976765332 E66.9 Advised to watch her diabetic diet, exercise and lose weight. BMI is 39.7 as 02-20-23. Elevated blood-pressure reading without diagnosis of hypertension 342190674 R03.0 Advised to be on low salt, diabetic diet, avoid NSAID , or OTC decongesta nt, if possible, will monitor blood pressure in the next visit. Bipolar disorder 1735343 4 F31.9 Under the care at [facility]. Cervical c ancer Papanicolaou smear screening declined 5414008861 08011 Z53.20 She will make appointmen t later, but not today. 02-20-23. Mammogram declined 75594 5004 Z53.20 Not today. 0-02-20-23. HIV screen ing declined 6593932979 38728 Z53.20 She declined 02-20-23. [id number] MD Mitchel Sands (Adult Med) [address] [place] [address] 05/23/2023 09:49:17 05/28/2023 14:31:25 Type 2 diabetes mellitus 54250531 E11.9 Mother is type 2 DM, just yang told to have DM few weeks ago at [facility]. blood sugar is 437 mg% at this office, will give 20 units regular insulin subcut today, will start metformin, and F/U in one month. she agreed to try. Advised to watch diabetic diet, exercise and lose weight. Obesity 066770329 E66.9 Advised to watch her diabetic diet, exercise and lose weight. BMI is 39.7 as 02-20-23. As 05-25-23, BMI is 38.8. Onychomyco sis of toenails 778627274 B35.1 Discussed with patient , she agreed to try med first . Elevated blood-pressure reading without diagnosis of hypertension 685640021 R03.0 Advised to be on low salt, diabetic diet, avoid NSAID , or OTC decongesta nt, if possible, will monitor blood pressure in the next visit. Bipolar disorder 5959177 4 F31.9 Under the care at behavior health clinic at [facility]. Cervical c ancer Papanicolaou smear screening declined 1954967866 42426 Z53.20 She will make appointmen t later, but not today. 02-20-23. Mammogram declined 12246 5004 Z53.20 Not today. 0-02-20-23. HIV screen ing declined 6882715587 58263 Z53.20 She declined 02-20-23. Influenza vaccination declined 052679640 Z28.21 She declined 05-23-23. [id number] MD Mitchel Sands (Adult Med) [address] [place] [address] 08/22/2023 09:44:17 08/29/2023 15:59:04 Uncontrolled type 2 diabetes mellitus 512214030 E11.65 Diabetid diet, exercise and keep the weight down. Refill med. Type 2 scott jerson mellitus 15346817 E11.9 Mother is type 2 DM, just yang told to have DM few weeks ago at [facility]. blood sugar is 437 mg% at this office, will give 20 units regular insulin subcut today, will start metformin, and F/U in one month. she agreed to try. Advised to watch diabetic diet, exercise and lose weight. Obesity 341076475 E66.9 Advised to watch her diabetic diet, exercise and lose weight. BMI is 39.7 as 02-20-23. As 05-25-23, BMI is 38.8. As today 08-22-23, BMI down to 38.6 . [id number] Sada De La Paz MD [facility] (Adult Med) [address] [place] [phone] 0 12/06/2023 14:56:49 12/07/2023 08:59:15 Uncontrolled type 2 diabetes mellitus 701208337 E11.65 Last A1C:Today (12/06/23), 10.5 (08/23/23)G oal [...] 1000mgC/W Rosuvastat in 5mg Depression screening 171 624668 Z13.31 PHQ9- Negative (0 out of 27) Mental hea [facility] screening 333536372 Z13.39 GAD7- Negative (0 out of 21) Body mass index 30+ - obesity 812294134 Z68.37 BMI 37.2 Advised decreased portion sizes, good food choices, limited eating out or fast food and eliminate soda and juice from diet. Advised physical activity daily and offered encouragem ent to continue with positive changes made so far. [id number] Sada De La Paz MD [facility] (Adult Med) [address] [place] [address] [phone] 03/11/2024 13:58:30 03/12/2024 13:15:06 Uncontrolled type 2 diabetes mellitus 163189347 E11.65 Last A1C:Today 8.0 (03/11/24) 8.7 (12/06/23), [...] at bedtimeSta rt Trulicity Depression screening 171 403424 Z13.31 PHQ9- Negative (0 out of 27) Mental [facility] screening 921186552 Z13.39 GAD7- Negative (0 out of 21) Body mass index 30+ - obesity 471071026 Z68.37 BMI 37.2 Advised decreased portion sizes, good food choices, limited eating out or fast food and eliminate soda and juice from diet. Advised physical activity daily and offered encouragem ent to continue with positive changes made so far. Screening for malignant neoplasm of colon 220083020 Z12.11 Onychomyco sis of toenails 487787864 B35.1 start terbinafin e 250mg tabs daily [id number] Sada De La Paz MD [facility] (Adult Med) [address] [place] [address] [phone] 06/11/2024 08:47:44 06/13/2024 16:49:33 Uncontrolled type 2 diabetes mellitus 448502431 E11.65 Last A1C:Today 7.5 (06/11/24) , 8.0 [...] bedtimeC/w Trulicity 1.5mg weekly Depression screening 171 947004 Z13.31 PHQ9- Negative (0 out of 27) Mental hea lt screening 448669501 Z13.39 GAD7- Negative (0 out of 21) Body mass index 30+ - obesity 088261487 Z68.37 BMI 36.9 Advised decreased portion sizes, good food choices, limited eating out or fast food and eliminate soda and juice from diet. Advised physical activity daily and offered encouragem ent to continue with positive changes made so far. Administra tion of pneumococcal vaccine 22045878 Z23 Prevnar 20 vaccine given today [id number] Sada De La Paz MD [facility] (Adult Med) [address] [place] [address] [phone] 09/11/2024 08:49:58 09/17/2024 13:15:57 Depression screening 872101575 Z13.31 PHQ9- Negative (0 out of 27) Mental [facility] screening 970709284 Z13.39 GAD7- Negative (0 out of 21) Obesity 780943229 E66.9 BMI 36.7 Type 2 scott betes mellitus 38842384 E11.9 Last A1C:Today 7.3 (09/11/24), 7.5 (06/11/24) [...] at bedtimeC/w Trulicity 1.5mg weekly Essential hypertension 36093874 I10 BP today: 142/92BP Goal: Less than [...] mg dailyBP cuff given to pt today [id number] Sada De [facility] [address] [place] [phone] 10/23/2024 08:35:18 10/24/2024 11:16:50 Essential hypertension 26612486 I10 BP today: 130/80BP Goal: Less than [...] to 20 mg daily Depression screening 171 596622 Z13.31 PHQ9- Negative (0 out of 27) Mental hea lth screening 218967373 Z13.39 GAD7- Negative (0 out of 21) Obesity 451150667 E66.9 BMI 36.7 [id number] Sada De La Paz MD [facility] (Adult Med) [facility] [place] [address] 12/03/2024 08:33:20 12/04/2024 15:14:27 Essential hypertension 30815341 I10 BP today: 124/76BP Goal: Less than [...] /w lisinopril to 20 mg daily Tachycardia 0577166 R00. 0 82923 No symptoms reported by patient.Pu lse has been in 100's on exam history.Co unseled on precaution s. Depression screening 171 205763 Z13.31 6624303 PHQ9- Negative (0 out of 27) Mental hea lth screening 727983967 Z13.30 0220600593 GAD7- Negative (0 out of 21) Obesity 654156631 E66.9 BMI 33.1 [id number] Sada De La Paz MD [facility] (Adult Med) [address] [place] [address] 02/25/2025 10:19:14 02/26/2025 12:03:14 Type 2 diabetes mellitus 22741780 E11.9 Last A1C:Today 6.5 (), 7.3 (09/11/24), [...] Trulicity 1.5mg weekly Drug-induc ed acute pancreatitis 793420191 K85.30 [id number] repeat labs today Essential hypertension 36634657 I10 BP today: 124/76BP Goal: Less than [...] ERStart atenolol 25mg daily Depression screening 171 482830 Z13.31 3669539 PHQ9- Negative (0 out of 27) Mental hea [facility] screening 411755893 Z13.30 3619490539 GAD7- Negative (0 out of 21) Obesity 398014297 E66.9 BMI 33.1 Disease 23509594 K46.9 30520 Keep appt with surgeon Acute kidney injury 1466 9001 N17.9 1824470 Increase water intakeRepe at labs today Mixed hyperlipidemia 267 430339 E78.2 27086 [id number] [facility] [address] [place] [address] 04/08/2025 09:52:15 04/09/2025 10:06:03 Essential hypertension 64638581 I10 BP today: 122/80BP Goal: Less than [...] w atenolol 25mg daily Depression screening 171 621290 Z13.31 2384751 PHQ9- Negative (0 out of 27) Mental hea [facility] screening 051277313 Z13.30 5971269720 GAD7- Negative (0 out of 21) Overweight 977521082 E66 .3 BMI 29.0 Hernia of abdominal cavity 31262527 K46.9 [id number] Scheduled for surgery on 04/23/2025 [id number] Sada De La Paz MD [facility] (Adult Med) [address] [place] [phone] 0 05/26/2025 09:45:58 05/27/2025 10:19:55 Type 2 diabetes mellitus 58712523 E11.9 Last A1C:Today 6.3 (05/26/25) , 6.5 [...] at bedtimed/c Trulicity 1.5mg weekly Essential hypertension 73380351 I10 BP today: 120/76BP Goal: Less than [...] atenolol 25mg daily Drug-induc ed acute pancreatitis 555697501 K85.30 [id number] repeat labs today Acute kidney injury 1466 9001 N17.9 1245751 Increase water intakeRepe at labs today Mixed hyperlipidemia 267 814482 E78.2 00152 Disease 31267204 K46.9 41882 Keep appt with surgeon Depression screening 171 709558 Z13.31 7838488 PHQ9- Negative (0 out of 27) Mental hea lt screening 964053446 Z13.30 9431897585 GAD7- Negative (0 out of 21) Obesity 408013119 E66.9 BMI 33.1 Overweight 058098664 E66 .3 BMI 29.0 Influenza vaccination declined 015489308 Z28.21 [id number] Health Concerns Section Related Observation LastModified by Organization Detai ls LastModified Time None Recorded Concern Status LastModified by Organization Details LastModified Time None Recorded Advance Directives Directive N: Payers Insurance Date Sequence Insurance Name Policy Number Policy Pearson Covered Member ID Pearson Member ID Guarantor Name 01/17/2023 1 [facility] - DOS PRIOR TO 2021 (MEDICAID REPLACEMENT - HMO) Larissa Gómez [id number] Larissa Gómez 06/07/2015 SLIDING FEE SCHEDULE - DISCOUNT Larissa Gómez 01/17/2023 1 [facility] (MEDICAID HMO) Larissa Gómez [id number] Larissa Gómez 05/23/2025 1 [facility] - DOS ON OR AFTER 21 (MEDICAID REPLACEMENT - HMO) Larissa Gómez [id number] Larissa Gómez Notes Date Note Type Note [...] hypertension. RHODA CRISTOBAL PA-C Attn: [address] [place], [address], [facility] 10/23/2024 09:05:05 12/03/2024 text/html Hypertension F/UReported by [...] time. RHODA CRISTOBAL PA-C Attn: [address] [facility], [place], [address], [facility] 12/03/2024 09:25:19 02/25/2025 text/html [...] lisinopril. RHODA CRISTOBAL PA-C Attn: [address] [place], [address], [facility] 02/25/2025 11:24:07 04/08/2025 text/html Hypertension F/UReported by [...] time. RHODA CRISTOBAL PA-C Attn: [address] [place], [address], [facility] 04/08/2025 10:41:50 05/26/2025 text/html Diabetes F/URepo rted [...] medication refill today.ROS as noted in the HPI 49yo female presents today for follow up on chronic conditions. She states that she is feeling well and that her surgery got pushed back due to a umblical infection. She has the surgery in a few days. RHODA CRISTOBAL PA-C Attn: [address] [place], [address], [facility] 05/26/2025 10:44:42 OBGyn Episode No OBEpisode recorded.
[2025-07-01 19:46] LABS: Thyroid Stimulating Hormone 0.808 uIU/mL (0.465-4.680)
[2025-07-01] MEDS: TERBINAFINE HCL 250 MG TABLET PO (20:05)
[2025-07-01] MEDS: ROSUVASTATIN 5 MG TABLET PO (20:05)
--- NOTE | 2025-07-01 23:05 | PC.NURSE ---
Pt belongings given to pt's aunt to take home per pt's request.
== END 2025-07-01 23:28 ==
PROVIDERS: Emergency Medicine; Emergency Provider Emergency Medicine; PCP Physician Assistant Medical
DX: K29.70 Gastritis, unspecified, without bleeding (principal); R45.851 Suicidal ideations; F32.A Depression, unspecified; E11.9 Type 2 diabetes mellitus without complications; I10 Essential (primary) hypertension; Z79.84 Long term (current) use of oral hypoglycemic drugs; G47.33 Obstructive sleep apnea (adult) (pediatric); Z20.822 Contact with and (suspected) exposure to COVID-19
CPT/HCPCS: 36415; 71046; 80053; 80307; 81001; 81025; 82077; 83690; 84443; 84484; 85025; 85380; 85610; 85730; 87637; 93005; 96374; 99285; A9270; J2470